=== PATIENT | female | born 1945 | race Caucasian/White ===

== ENCOUNTER 2024-08-25 14:42 | Outpatient (CLI) | payer MEDICARE, SELFPAY ==
--- NOTE | 2024-08-25 16:07 | WPDPFTINT ---
PFT Procedure Performed PFT Procedure Performed Spirometry with Pre/Post Bronchodilator Plethysmography (Lung Vol) Diffusing Cap (DLCO) Flow Vol Loop PFT Interpretation This is a pulmonary function test with pre and post-bronchodilator spirometry, plethysmography and diffusing capacity. The test was performed and results interpreted in accordance with the 2019 and 2005 ATS/ERS Task Force guidelines respectively using the Global Lung Function Initiative-2012 reference equations. Patient demonstrated good effort and cooperation. Reproducibility criteria were met. The quality of the pre bronchodilator spirometry maneuver was Grade A and post bronchodilator spirometry maneuver was Grade A. Findings: Spirometry: There is decreased maximal expiratory airflow at all lung volumes with concave expiratory flow tracing. The contour the inspiratory flow tracing is normal. The pre bronchodilator FVC is 1.70 L, 72% predicted. The pre bronchodilator FEV1 is 1.09 L, 60% predicted. The pre bronchodilator FEV1: FVC ratio 64%. The post bronchodilator FVC is 1.73 L, representing a 2% increase. The post bronchodilator FEV1 is 1.18 L, representing a 9% increase. The post bronchodilator FEV1: FVC ratio is 68%. Plethysmography: The total lung capacity is 6.13 L, 133% predicted. The functional residual capacity is 5.01 L, 190% predicted. The residual volume is 4.17 L, 191% predicted. The residual volume: Total lung capacity ratio is 68%. Diffusing capacity: The diffusing capacity unadjusted for hemoglobin and carboxyhemoglobin is 8.3, 45% predicted. The diffusing capacity adjusted for alveolar volume is 2.71, 63% predicted. Impression: There is a moderate obstructive abnormality. There is no significant improvement after inhaling a single dose of albuterol. The increase in residual volume to total lung volume ratio is consistent with hyperinflation from an obstructive abnormality. The diffusing capacity unadjusted for hemoglobin and carboxyhemoglobin is moderately decreased and remains mildly decreased when adjusted for alveolar volume. There are no prior studies for comparison
== END 2024-08-25 14:43 | disposition home or self-care (01) ==
PROVIDERS: PCP Internal Medicine Pulmonary Disease; Visit Provider Internal Medicine Pulmonary Disease
DX: R94.2 Abnormal results of pulmonary function studies (principal); R05.9 Cough, unspecified; T78.40XA Allergy, unspecified, initial encounter; D89.9 Disorder involving the immune mechanism, unspecified
CPT/HCPCS: 94060; 94726; 94729

== ENCOUNTER 2025-01-15 15:52 | Outpatient (CLI) | payer MEDICARE, SELFPAY ==
--- NOTE | ~2025-01-15 | US_ITS ---
EXAMINATION: US venous doppler [facility] DATE: 01/15/2025 16:50 INDICATION: Right lower extremity swelling TECHNIQUE: Grayscale ultrasound images without and with compression and Doppler ultrasound images of the bilateral lower extremity veins were obtained. COMPARISON: None. FINDINGS: The visualized portions of right common femoral vein, profunda (deep) femoral vein, femoral vein, pop liteal vein, peroneal veins, posterior tibial veins, and greater saphenous vein outflow are patent. The visualized portions of left common femoral vein, profunda femoral vein, femoral vein, popliteal v ein, peroneal veins, posterior tibial veins, and greater saphenous vein outflow are patent. IMPRESSION: 1. No deep venous thrombosis. Reviewed, dictated and finalized at location A.
--- OUTSIDE RECORDS SUMMARY | 2025-01-15 15:56 | XMS_ITS | CONTINUITY OF CARE DOCUMENT ---
Author Name sangeeta rutherford Address Unknown Organization [facility] Address [address] [place] [address] Phone [phone] Care Team Providers Care Language Instructor Name Role Phone Addy Hernandez MD Unavailable FATIMAH VICTORIA MD Unavailable FATIMAH VICTORIA MD Unavailable [phone] PROBLEMS Condition Status Date Provider Notes penitentiary current use of anticoagulants active Pascual Watts RN Cardiology examination active Addy Hernandez MD HTN essential active Addy Hernandez MD Shortness of breath active Addy Hernandez MD Diabetes mellitus active Addy Hernandez MD Hyperlipidemia active Addy Hernandez MD CVA active Addy Hernandez MD CAD active Addy Hernandez MD Tobacco abuse active Addy Hernandez MD Leg weakness, bilateral active Addy Hernandez MD Diminished pedal pulses active Addy Hernandez MD Leg edema, bilateral active Addy Hernandez MD ENCOUNTERS Date Type Provider Location Encounter Diag nosis 1 - 2 In-person encounter Office Visit Addy Hernandez MD [place] [facility] 3 - 3 In-person encounter Office Visit Addy Hernandez MD [place] [facility] 8 - 9 In-person encounter Office Visit Addy Hernandez MD [place] [facility] Cardiology examinationHTN essentialShortness of breathDiabetes mellitusHyperlipidemiaCVACADTobacco abuseLeg weakness, bilateralDiminished pedal pulsesLeg edema, bilateral VITAL SIGNS Date Observation Value Provider Body Mass Index (Ratio) 26.28 kg/m2 Linda Hernandez MD blood pressure, diastolic 85 mm[Hg] Juanito sifuentes [place] blood pressure, systolic 149 mm[Hg] Zakia molina [place] oxygen saturation, oximetry 99 % [facility] [place] pulse rate 97 /min [facility] [place] weight E&M 134.6 [lb_av] [facility] [place] height E&M 60 [in_i] [facility] [place] blood pressure, cuff size regular Juanito maria [place] Body Mass Index (Ratio) 24.21 kg/m2 Linda Hernandez MD blood pressure, cuff size regular Ja rret blood pressure, diastolic 81 mm[Hg] Ja rret blood pressure, systolic 147 mm[Hg] Jar ret pulse rate 91 /min Alfred respiratory rate E&M 16 /min Alfred oxygen saturation, oximetry 94 % Alfred weight E&M 124 [lb_av] Alfred er y height E&M 60 [in_i] Alfred y Body Mass Index (Ratio) 27.34 kg/m2 Linda Hernandez MD blood pressure, diastolic 76 mm[Hg] Emeli nkLogic blood pressure, systolic 126 mm[Hg] Maribell kLogic pulse rate 110 /min Alfred erda y blood pressure, cuff size regular Ja rret blood pressure, diastolic 76 mm[Hg] Ja rret blood pressure, systolic 126 mm[Hg] Kashmir marroquin height E&M 60 [in_i] Alfred y respiratory rate E&M 16 /min Alfred oxygen saturation, oximetry 97 % Alfred weight E&M 140 [lb_av] Alfred y ALLERGIES Allergy Name Onset Date Reaction Criticality Status CODEINE Low Criticality active SULFA Low Criticality active RESULTS Date Observation Value Provider Reference Range Interpretation Location coagulation managed by Pascual Watts RN international normalized ratio (INR) 1.8 Pascual Watts RN Normal prothrombin time (patient) 21.3 s Pascual Watts RN coagulation managed by Pascual Watts RN international normalized ratio (INR) 1.4 Pascual Watts RN Normal prothrombin time (patient) 16.4 s Pascual Watts RN coagulation managed by Pascual Watts RN international normalized ratio (INR) 1.7 Pascual Watts RN Normal prothrombin time (patient) 20.3 s Pascual Watts RN coagulation managed by Pascual Watts RN international normalized ratio (INR) 1.6 Pascual Watts RN Normal prothrombin time (patient) 19.1 s Pascual Watts RN international normalized ratio (INR) 2.6 Aury Ross Normal coagulation managed by Aruy Ross coagulation managed by Pascual Watts RN international normalized ratio (INR) 1.5 Pascual Watts RN Normal prothrombin time (patient) 17.6 s Pascual Watts RN coagulation managed by Pascual Watts RN international normalized ratio (INR) 1.8 Pascual Watts RN Normal prothrombin time (patient) 22.2 s Pascual Mcmillans RN coagulation managed by Pascual Mcmillansusan SCHULZ Pascual Mcmillans RN international normalized ratio (INR) 1.8 Pascual Watts RN Normal prothrombin time (patient) 22.0 s Pascual Watts RN coagulation managed by Pieter Diaz RN international normalized ratio (INR) 2.4 Pieter Diaz RN Normal coagulation managed by Pascual Watts RN Pascual Mcmillans RN international normalized ratio (INR) 1.9 Pascual Watts RN Normal prothrombin time (patient) 22.5 s Pascual Mcmillans RN coagulation managed by Pascual Watts RN Pascual Mcmillans RN international normalized ratio (INR) 1.9 Pascual Mcmillans RN Normal prothrombin time (patient) 22.8 s Pascual Mcmillans RN coagulation managed by Pascual Watts RN Pascual Mcmillans RN international normalized ratio (INR) 2.1 Pascual Mcmillansusan SCHULZ Normal prothrombin time (patient) 25.6 s Pascual Watts RN coagulation managed by Yolande Posada RN international normalized ratio (INR) 1.8 Yolande Posada RN Low prothrombin time (patient) 22.0 s Yolande Posada RN coagulation managed by Yolande Posada RN international normalized ratio (INR) 3.5 Yolande Posada RN Normal international normalized ratio (INR) 4.7 Sadaf Valdovinos Normal coagulation managed by Yolande Posada RN international normalized ratio (INR) 1.7 Yolande Posada RN Normal prothrombin time (patient) 20.8 s Yolande Posada RN coagulation managed by Yolande Posada RN international normalized ratio (INR) 1.5 Yolnade Posada RN Normal prothrombin time (patient) 17.5 s Yolande Posada RN coagulation managed by Pascual Watts RN international normalized ratio (INR) 1.4 Pascual Watts RN Normal prothrombin time (patient) 17.3 s Pascual Watts RN coagulation managed by Pascual Watts RN international normalized ratio (INR) 3.4 Pascual Watts RN Normal prothrombin time (patient) 41.1 s Pascual Watts RN coagulation managed by Pascual Watts RN international normalized ratio (INR) 2.3 Pascual Watts RN Normal prothrombin time (patient) 27.3 s Pascual Watts RN coagulation managed by Pascual Watts RN international normalized ratio (INR) 1.5 Pascual Watts RN Normal prothrombin time (patient) 18.0 s Pascual Watts RN coagulation managed by Pascual Watts RN international normalized ratio (INR) 1.3 Pascual Watts RN Normal prothrombin time (patient) 15.7 s Pascual Watts RN HISTORY OF MEDICATION USE Medication Status Instructions Dates Provider Indications Com ments warfarin 3 mg tablet active Take 1 1/2 tablet by mouth every evening 10/30 Pascual Watts RN metformin 1,000 mg tablet active TAKE 1 TABLET BY MOUTH TWICE DAILY 11/27 Myara Romo hydrochlorothiazide 25 mg tablet active TAKE 2 TABLETS BY MOUTH ONCE DAILY 11/12 Juliocesar Matta famotidine 20 mg tablet active TAKE 1 TABLET BY MOUTH TWICE DAILY 11/12 Juliocesar Matta ipratropium bromide active Fern [place] fenofibrate 150 mg capsule active Take 1 capsule by mouth once a day 06/11 Ana Maria Solorio famotidine 20 mg tablet completed one tab twice daily 06/04 - 11/12 Juliocesar Matta hydrochlorothiazide 25 mg tablet completed 2 tabs once daily 06/04 - 11/12 Juliocesar Matta metformin 1,000 mg tablet completed one tab twice daily 06/04 - 11/27 Mayra Romo valsartan 320 mg tablet active one tablet daily 06/04 Pascual Watts RN warfarin 3 mg tablet completed 1 12 table t by mouth once a day EXCEPT TAKE 1 TABLETS BY MOUTH EVERY EVENING on Sun and ONLY 05/12 - 10/30 Nilda Mistry RN warfarin 3 mg tablet completed Take 1 1/2 tablet by mouth every evening EXCEPT SUN,SUN,and SUN take 2 tablets to = 6mg 03/31 - 05/12 Cari Diaz diltiazem HCl (Cardizem CD) 360 mg capsule,extended release 24hr active Take 1 capsule by mouth once a day 03/05 Ana Maria Solorio Lasix 20 mg tablet active Take 1 tablet by mouth once a day pt is not currently taking 07/18/2402/05 Aury Ross amlodipine 10 mg tablet active diltiazem HCl (Cardizem CD) 360 mg capsule,extended release 24hr completed - 03/05 Ana Maria Solorio Breztri Aerosphere 160-9-4.8 mcg/actuation HFA aerosol inhaler active INHALE 2 PUFFS BY MOUTH TWICE DAILY. RINSE MOUTH AFTER USE albuterol sulfate 90 mcg/actuation HFA aerosol inhaler active INHALE 2 PUFFS BY MOUTH EVERY 4 HOURS NEEDED FOR SHORTNESS OF BREATH warfarin 3 mg tablet completed Take 1 1/2 tablet by mouth every evening - 03/31 Yolande Posada RN valsartan 320 mg tablet completed - 06/04 Pascual Watts RN metformin 1,000 mg tablet completed - 06/04 Pascual Watts RN famotidine 20 mg tablet completed - 06/04 Pascual Watts RN fenofibrate 150 mg capsule completed - 06/11 Ana Maria Solorio hydrochlorothiazide 25 mg tablet completed - 06/04 Pascual Watts RN pravastatin 40 mg tablet active Ruthie Low Dose Aspirin 81 mg tablet,delayed release (DR/EC) active Alfred SOCIAL HISTORY Date Observation Value Provider smoking history, total pack/day 1/2 Addy Hernandez MD cigarette use yes Addy Coy smoking status Current every day smoker Ruperto Hernandez MD smoking history, total pack/day 1/2 Addy Hernnadez MD cigarette use yes Addy Coy smoking status Current every day smoker U arturo Hernandez MD number of grandchildren Addy Hernandez MD U arturo Hernandez MD smoking history, total pack/day 1/2 Alfred kevin cigarette use yes Alfred velásquez smoking status Current every day smoker J sudhakar FUNCTIONAL STATUS Date Observation Value Provider HRA, CV Assess/Plan, Angina (inactive) Management Plan continue current therapy Addy Hernandez MD INSURANCE PROVIDERS Payer name Policy type / Coverage type [place] red republican ID [facility] COMPLETE CARE [id number] (O C-SNP) [employer] insurance [employer] [id number] ADVANCE DIRECTIVES Name Date DISCUSSED - NO DECISION MADE TREATMENT PLAN Date Name Performer Cardiology:Per pcp Addy Hernandez MD Cardiology: H er updated medication list for this problem includes: Lasix 20 Mg Tablet (Furosemide) ..... Take 1 tablet by mouth once a day pt is not currently taking 07/18/24 Hydrochlorothiazide 25 Mg Tablet (Hydrochlorothiazide) ..... 2 tabs once daily Valsartan 320 Mg Tablet (Valsartan) ..... One tablet daily Diltiazem Hcl (cardizem Cd) 360 Mg Capsule,extended Release 24hr (Diltiazem hcl (cardizem cd)) ..... Take 1 capsule by mouth once a day Amlodipine 10 Mg Tablet (Amlodipine) Ruthie Low Dose Aspirin 81 Mg Tablet,delayed Release (dr/ec) (Aspirin) BP today: 149/85 P rior BP: 147/81 (2024) Addy Hernandez MD Cardiology:chronic f or her U sing lasix prn for the swelling Addy Hernandez MD Cardiology: H er updated medication list for this problem includes: Fenofibrate 150 Mg Capsule (Fenofibrate) ..... Take 1 capsule by mouth once a day Pravastatin 40 Mg Tablet (Pravastatin) Addy Hernandez MD Cardiology:The Patie nt was reencouraged to stop smoking. Addy Hernandez MD Cardiology:no new is sues Addy Hernandez MD Cardiology:Continue medical therapy with coumadin, asa, and statin T his visit has been a part of the consistent, comprehensive, and ongoing management of the chronic medical condition(s) listed above for the patient. Her updated medication list for this problem includes: Warfarin 3 Mg Tablet (Warfarin) ..... Take 1 and 1/2 tablets by mouth every evening except on sunday take 2 tablets by mouth Diltiazem Hcl (cardizem Cd) 360 Mg Capsule,extended Release 24hr (Diltiazem hcl (cardizem cd)) ..... Take 1 capsule by mouth once a day Amlodipine 10 Mg Tablet (Amlodipine) Ruthie Low Dose Aspirin 81 Mg Tablet,delayed Release (dr/ec) (Aspirin) Addy Hernandez MD Cardiology Addy Hernandez MD Cardiology: H er updated medication list for this problem includes: Lasix 20 Mg Tablet (Furosemide) ..... Take 1 tablet by mouth once a day Amlodipine 10 Mg Tablet (Amlodipine) Diltiazem Hcl 360 Mg Capsule,extended Release 24hr (Diltiazem hcl) Valsartan 320 Mg Tablet (Valsartan) Hydrochlorothiazide 25 Mg Tablet (Hydrochlorothiazide) Ruthie Low Dose Aspirin 81 Mg Tablet,delayed Release (dr/ec) (Aspirin) BP today: 147/81 P rior BP: 126/76 (12/27/2023) Addy Hernandez MD Cardiology: H er updated medication list for this problem includes: Fenofibrate 150 Mg Capsule (Fenofibrate) Pravastatin 40 Mg Tablet (Pravastatin) Addy Hernandez MD Cardiology:Stable. Continue medi federico therapy. Addy Hernandez MD Cardiology:improved with lasix U arturo Hernandez MD Cardiology: I can't feel her PT or DP pulses bilaterally so we'll check an PEDRO. Addy Hernandez MD Cardiology: w ill check carotid doppler Addy Hernandez MD Cardiology: T he Patient was reencouraged to stop smoking. Addy Hernandez MD Cardiology: B P today: 126/76 Her updated medication list for this problem includes: Amlodipine 10 Mg Tablet (Amlodipine) Diltiazem Hcl 360 Mg Capsule,extended Release 24hr (Diltiazem hcl) Valsartan 320 Mg Tablet (Valsartan) Hydrochlorothiazide 25 Mg Tablet (Hydrochlorothiazide) Ruthie Low Dose Aspirin 81 Mg Tablet,delayed Release (dr/ec) (Aspirin) Addy Hernandez MD Cardiology: H er updated medication list for this problem includes: Fenofibrate 150 Mg Capsule (Fenofibrate) Pravastatin 40 Mg Tablet (Pravastatin) Addy Hernandez MD Cardiology:On statin s W ill request records from her prior oil agent N kelechi Hernandez MD Date Name Venous Doppler Bilat eral LE - Reflux Venous Doppler Bilat eral LE - Reflux Arterial Duplex Bi-L ower EX Carotid Duplex Bilat eral Complete Echo HISTORY OF PROCEDURES Procedure Date Procedure Name Provider Procedure Notes S tatus Makenna Hernandez MD completed Makenna Hernandez MD completed Makenna Quinones MD complete d Makenna Hernandez MD completed Makenna Quinones MD complete d Makenna Quinones MD complete d Protime Addy Hernandez MD completed Geethaime Glenroy Quinones MD complete d Protime Addy Hernandez MD completed Geethaime Glenroy Quinones MD complete d Geethaime Addy Hernandez MD completed Protime Pascual Watts RN completed Protime Addy Hernandez MD completed Protime Yolande Posada RN completed Geethaime Reji López MD completed Protime Glenroy Quinones MD complete d Makenna Quinones MD complete d Makenna Hernandez MD completed Geethaime Pamela Stahl MD comp leted Protime Pascual Watts RN completed Makenna Hernandez MD completed DELVIN Hernandez MD completed
--- OUTSIDE RECORDS SUMMARY | 2025-01-15 15:56 | XMS_ITS | Encounter Summary ---
Author Organization [facility] Address [address] [place] [address] Care Team Providers Care Motor Runner Name Role Phone Katia Duran DO Primary Care Provider Encounter Details Date Type Department Care Team (Late st Contact Info) Description 10/02/[address] 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
--- OUTSIDE RECORDS SUMMARY | 2025-01-15 15:56 | XMS_ITS | Encounter Summary ---
Author Organization [facility] Address 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
--- OUTSIDE RECORDS SUMMARY | 2025-01-15 15:56 | XMS_ITS | Encounter Summary ---
Author Organization [facility] Address 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 Gender Identity Not on file Sexual Orientation Not on file documented as of this encounter Plan of Treatment Not on file documented as of this encounter Procedures Procedure Name Priority Date/Time Associated Diagnosis Comments XR FOOT 3+ VW LEFT Routine 03/09/2009 11 :48 AM CDT XR ANKLE 3+ VW LEFT Routine 03/09/2009 1 1:48 AM CDT documented in this encounter Results * XR FOOT 3+ VW LEFT (03/09/2009 11:48 AM CDT) Anatomical Region Laterality Modality Ankle / Foot Other 03/09/2009 11:4 8 AM CDT Narrative 03/09/2009 11:50 AM CDT [place] [id number], [place] [address] Admit Date: 03/09/2009 FAY PULIDO Sex: F Admit Prov: KAELYN EDWARDS Date: 1945 Primary Care Prov: TORRIE PLUMMER CMRN: [id number] [id number] [facility] Ordering Prov: N/A Accession Number: [id number] Interpretation Left foot 3 views 03/09/2009. History: Pain. Findings: No acute fracture, subluxation, lytic or blastic lesion is visualized. The joint spaces are well-maintained. The soft tissues are unremarkable. Impression: No identifiable bone abnormalities. . Dictated by: ZEYNEP BARNES 03/09/2009 11:31 Electronically signed by: ZEYNEP BARNES 03/09/2009 11:31 Procedure Note Zeynep Lawrence MD - 03/09/[address] [address] Admit Date: 03/09/2009 FAY PULIDO Sex: F Admit Prov: KAELYN EDWARDS Date: 1945 Primary Care Prov: TORRIE PLUMMER CMRN: [id number] [id number] [facility] Ordering Prov: N/A Interpretation Left foot 3 views 03/09/2009. History: Pain. Findings: No acute fracture, subluxation, lytic or blastic lesionis visualized. The joint spaces are well-maintained. The soft tissuesare unremarkable. Impression: No identifiable bone abnormalities. . Dictated by: ZEYNEP BARNES 03/09/2009 11:31 Electronically signed by: ZEYNEP BARNES 03/09/2009 11:31 Kaelyn Edwards MD DIAGNOSTIC IMAGING ORDERABL ES Final Result * XR ANKLE 3+ VW LEFT (03/09/2009 11:48 AM CDT) Anatomical Region Laterality Modality Ankle / Foot Other 03/09/2009 11:4 8 AM CDT Narrative 03/09/2009 3:53 PM CDT [place] [address] [place], [place] [address] Admit Date: 03/09/2009 FAY PULIDO Sex: F Admit Prov: KAELYN EDWARDS Date: 1945 Primary Care Prov: TORRIE PLUMMER CMRN: [id number] [id number] [facility] Ordering Prov: N/A Accession Number: [id number] Interpretation LEFT ANKLE, 3 VIEWS, 03/09/2009 HISTORY: Pain and injury. FINDINGS: No fracture, dislocation, focal bone production or destruction is identified. IMPRESSION: Negative. . Dictated by: LENNOX FOSTER 03/09/2009 12:24 Electronically signed by: LENNOX FOSTER 03/09/2009 15:51 Transcribed: 03/09/2009 12:27 DKT Procedure Note Lennox Foster MD - 03/09/2009 [place] [address] [place], [place] [address] Admit Date: 03/09/2009 FAY PULIDO Sex: F Admit Prov: KAELYN EDWARDS Date: 1945 Primary Care Prov: TORRIE PLUMMER CMRN: [id number] [id number] [facility] Ordering Prov: N/A Interpretation LEFT ANKLE, 3 VIEWS, 03/09/2009 HISTORY: Pain and injury. FINDINGS: No fracture, dislocation, focal bone production ordestruction is identified. IMPRESSION: Negative. . Dictated by: LENNOX FOSTER 03/09/2009 12:24 Electronically signed by: LENNOX FOSTER 03/09/2009 15:51 Transcribed: 03/09/2009 12:27 DKT Kaelyn Edwards MD DIAGNOSTIC IMAGING ORDERABL ES Final Result documented in this encounter Visit Diagnoses Not on filedocumented in this encounter Care Teams Mixer Pigment Relationship Specialty Start Date End Date Katia Duran DO [address] [facility] [address] [place] [address] PCP - General Internal Medicine 01/16/19 04/14/24 documented as of this encounter
--- OUTSIDE RECORDS SUMMARY | 2025-01-15 15:56 | XMS_ITS | Clinical Summary ---
Author Organization [facility] Address [address] [place] [address] Care Team Providers Care Chainman Name Role Phone Payton Rae MD Primary Care Provider Allergies Active Allergy Reactions Criticality Noted Date Comments Codeine Other (See comments) Medium Reaction: sick, , Reaction: Other, , Reaction: Other, Iodinated Contrast Media Syncope High Sulfa (Sulfonamide Antibiotics) Syncope,Other (See comments) Medium Reaction: pass out, , Reaction: Other, , Reaction: Other, Medications nitroglycerin (NITROSTAT) 0.4 mg SL tablet Take as directed prn 0 0 2 Active aspirin 81 mg tablet take 1 tablet by oral route every day 0 0 5 Active metFORMIN (GLUCOPHAGE) 1,000 mg tablet take 1 tablet by oral route 2 times every day with morning and evening meals 0 0 6 Active pravastatin (PRAVACHOL) 40 mg tablet take 1 tablet by oral route every day 0 0 6 Active blood glucose diagnostic (CONTOUR TEST STRIPS) strip Test sugars daily and as directed 100 2 9 Active lancets (COMFORT LANCETS) misc Take as directed 100 1 9 Active ostomy supplies (CONTOUR I STOMA CAP) misc Take as directed. Use Contour glucometer test strips, as directed 100 1 9 Active docusate sodium (COLACE) 100 mg capsule Take one by mouth one time per day 0 0 8 Active potassium chloride ER (KLOR-CON 10) 10 mEq CR tablet Take one by mouth one time per day 30 5 9 Active blood-glucose meter (glucose monitoring kit) kit use with supplies as directed 0 0 0 Active albuterol HFA (PROVENTIL HFA,VENTOLIN HFA,PROAIR HFA) 90 mcg/actuation inhaler Inhale 2 puffs every 6 (six) hours as needed for wheezing Active hydroCHLOROthia zide (HYDRODIURIL) 25 mg tablet TAKE 1 TABLET BY MOUTH DAILY 90 tablet 3 0 Active warfarin (COUMADIN) 3 mg tablet Take 1 tablet (3 mg total) by mouth daily 90 tablet 0 Active valsartan (DIOVAN) 320 mg tablet Take 1 tablet (320 mg total) by mouth daily 3 Active furosemide (LASIX) 20 mg tablet Take 1 tablet (20 mg total) by mouth daily Active famotidine (PEPCID) 20 mg tablet Take 1 tablet (20 mg total) by mouth 2 (two) times a day 3 Active fluticasone propionate (FLONASE) 50 mcg/actuation nasal spray Administer 1 spray into affected nostril(s) daily 5 Active Breztri Aerosphere 160-9-4.8 mcg/actuation inhaler Inhale 2 puffs 2 (two) times a day Active diltiaZEM CD (CARDIZEM CD) 360 mg 24 hr capsule Take 1 capsule (360 mg total) by mouth daily 90 capsule 5 03/02/20 25 Active fenofibrate (FENOGLIDE) 40 mg tablet Take 1 tablet (40 mg total) by mouth daily 30 tablet 5 Active Active Problems Problem Noted Date Diagnosed Date Edema of right lower extremity 12/01/2024 Assessment & Plan (12/01/2024 4:44 PM VISITING NURSE): Endorses RLE edema for ~6 months since a fall w/ leg injury. -PT eval tomorrow -cont home lasix A-fib 12/01/2024 Assessment & Plan (12/01/2024 4:42 PM VISITING NURSE): H/o CAD s/p PCI , HTN/ HLD HM : diltiazem, warfarin ( 3 mg/4.5 mg alternating every other day ), aspirin, fenofibrate, pravastatin, valsartan, hydrochlorothiazide 25 mg daily, Lasix 20 mg daily PLAN - continue diltiazem - Continue warfarin - K 3.5 s/p 40 meq KCL, Mg 1.9 s/p 2g IV Mg - continue Lasix, hydrochlorothiazide, aspirin, fenofibrate, pravastatin, losartan 100 mg daily COPD exacerbation 11/30/2024 Assessment & Plan (12/02/2024 12:53 PM VISITING NURSE): Acute hypoxic respiratory failure sec to COPD exacerbation due to influenza - 5L O2 initially, currently on 2L O2 - Pt presented with progressive, SOB, congestion, productive cough. Requiring 5L NC. Wheezing on exam. RVP +flu A. CXR clear, received dex 10mg, duonebs, azithro, tamiflu in ED, currently on prednisone. Plan -pred 40 daily x4d -azithro x3d -sched Xopenex -cont tamiflu (/- ) -anti-tussives prn, wean O2 as able. Home O2 eval done and on room air. SVT (supraventricular tachycardia) 05/12/2020 Assessment & Plan (12/02/2024 12:53 PM VISITING NURSE): - Pt missed home diltiazem dose yesterday 11/30, this morning while doing DuoNebs she started having tachycardia with heart rate 180, ACT was called, Pt was very anxious, with palpitations, denied chest pain/ shortness of breath, EKG suggestive of SVT s/p vagal maneuver/ carotid massage, adenosine 6 mg followed by 12 mg, received IV diltiazem 15 mg converted back to sinus rhythm with heart rate 100-110, workup suggestive of normal troponin, elevated BNP, BMP/CBC, lactate normal, VBG normal. Plan - Continuous telemetry - keep K >4, Mg>2 - Continue home diltiazem - No further SVTs Paresthesia 10/13/2019 Hyperlipidemia associated with type 2 diabetes reuben kaminskichloe 01/20/2019 Assessment & Plan (08/05/2019 10:59 AM VISITING NURSE): Cholesterol is reasonably controlled on her current medical regimen. Will check her again in the near future and if she continues to be little bit high we may want switch her over to a higher potency statin therapy. Assessment & Plan (01/21/2019 10:52 AM CDT): Continue statin therapy. Lab work in June 2018 revealed LDL of 73. Tobacco use disorder 01/20/2019 Assessment & Plan (08/05/2019 10:59 AM VISITING NURSE): Patient continues to smoke and refuses to try to quit. Once again we discussed this. Assessment & Plan (01/21/2019 10:52 AM CDT): Smoking cessation was discussed and encouraged. The patient currently is not interested in stopping smoking. Pure hypercholesterolemia 07/20/2017 Assessment & Plan (07/25/2018 10:36 AM CDT): Lipid abnormalities are improving with treatment. Pharmacotherapy as ordered. Lipids will be reassessed in 1 year. Benign essential hypertension 08/05/2014 Overview (01/06/2017): Benign essential hypertension Tobacco dependence syndrome 02/14/2014 Overview (01/04/2017): TOBACCO USE DISORDER Atopic rhinitis 02/14/2014 Overview (01/06/2017): ALLERGIC RHINITIS NOS Coronary artery disease of n ative artery of [place] heart with stable angina pectoris 02/14/2014 Overview (01/06/2017): CRNRY ATHRSCL NATVE VSSL Assessment & Plan (08/05/2019 10:59 AM VISITING NURSE): The patient has not had any chest pain or shortness of breath. She is getting around without any issues. She has no specific complaints concerning his coronary artery disease. Blood pressure and heart rate are reasonably controlled. She will follow up with me in 1 year unless she is feeling poorly and comes in to be seen Assessment & Plan (01/21/2019 10:51 AM CDT): Stable on current medical therapy. Unfortunately the patient continues to smoke against medical advice. She will follow up on schedule with Dr. Anand in 6 months. Assessment & Plan (07/25/2018 10:36 AM CDT): The patient has been noncompliant with follow-up however has not had any issues. She has no chest pain is seems to be getting around without any issues. She continues to smoke cigarettes however. We discussed the need for her to quit smoking however it seems like she has given up with the idea of stopping Osteoarthritis of lumbar spine 02/14/2014 Overview (01/06/2017): DJD (Degenerative Joint Disease) of Lumbar Spine Hypertension associated with diabetes 02/14/2014 Overview (01/06/2017): BENIGN HYPERTENSION Assessment & Plan (08/05/2019 10:59 AM VISITING NURSE): Currently reasonably controlled. Continue current medical regimen Assessment & Plan (01/21/2019 10:51 AM CDT): Blood pressure is elevated today in the office and she has had several elevated blood pressure readings. I have added hydrochlorothiazide 12.5 mg p.o. Daily. I asked her to return for a blood pressure check and have a BMP done in 10-14 days. She may do these things at the [facility] location of her primary care provider or will return to us for these. Osteoarthritis 02/14/2014 Overview (01/06/2017): Osteoarthritis Type 2 diabetes mellitus 02/14/2014 Overview (01/06/2017): DMII WO CMP NT ST UNCNTR Assessment & Plan (12/01/2024 12:40 AM VISITING NURSE): Home reg: metformin -accuchecks + SSI Gastroesophageal reflux disease 11/16/2009 Overview (01/06/2017): Esophageal Reflux Diverticular disease of colon 11/16/2009 Overview (01/06/2017): Diverticulosis of colon Resolved Problems Problem Noted Date Diagnosed Date Resolved Date Influenza A 12/01/2024 12/01/2024 Assessment & Plan (12/01/2024 12:10 AM VISITING NURSE): -tamiflu (12/01- ) -tx COPD exac as above -wean O2 as able Stage 3a chronic kidney disease 12/01/2024 12/01/2024 Assessment & Plan (12/01/2024 12:44 AM VISITING NURSE): Cr 1.2 (was ~1.0 in 2023). -trend BMP Hyperlipidemia 02/14/2014 12/01/2024 Overview (01/06/2017): HYPERLIPIDEMIA NEC/NOS Assessment & Plan (12/01/2024 12:45 AM VISITING NURSE): -cont statin Essential hypertension 02/14/201412/01 Overview (01/06/2017): HYPERTENSION NOS Assessment & Plan (12/01/2024 12:39 AM VISITING NURSE): -cont valsartan, dilt, HCTZ Assessment & Plan (07/25/2018 10:36 AM CDT): Hypertension is improving with treatment. Dietary sodium restriction. Continue current medications. Blood pressure will be reassessed at the next regular appointment. Encounters Date Type Department Care Team Description 12/08/2024 SHOP/CHAP Initial Outreach [facility] [address] [place] [address] Maya Benoit, RN 12/05/2024 SHOP/CHAP Initial Outreach [facility] [address] [place] [address] Maya Benoit, RN 12/04/2024 SHOP/CHAP Initial Outreach [facility] [address] [place] [address] Maya Benoit, RN 12/03/2024 SHOP/CHAP Initial Outreach [facility] [address] [place] [address] Maya Benoit RN 12/03/2024 SHOP/CHAP Initial Eligibility Review [facility] [address] [place] [address] Maya Benoit RN 12/01/2024 8:40 AM VISITING NURSE Ancillary Procedure [facility] IP [address] [facility] [address] [place] [address] 11/30/2024 1:34 PM VISITING NURSE - 12/02/2024 2:14 PM VISITING NURSE Hospital Encounter [facility] [address] [place] [address] Prudencio Huang MD Kalvala, MD Janice Richmond Fnu, MD COPD exacerbation (HCC) (Primary Dx); Influenza A Discharge Disposition: Discharge to home or self care from Last 3 Months Immunizations Immunization Administration Dates Next Due Influenza, Split 07/09/2012,08/11/2011, 0 Influenza, Trivalent, IM (MDV) 09/04/2008 Influenza, Trivalent, Preser vative Free, Intramuscular 07/01/2011 Pneumococcal Polysaccharide PPV23 07/01/2011,01/2008 Tdap 12/31/2008 Surgical History Surgery Date Site/Laterality Comments HAND SURGERY 10/01/2007 - 09/30/2008 Joint replacement 1st MCP LAMINECTOMY CORONARY STENT PLACEMENT 10/01/2005 - 09/30/2006 RCA Medical History Medical History Date Comments Arthritis Arthritis Hyperlipidemia Hyperlipidemia Hypertension Hypertension Bronchitis 2007 Bronchitis Depression Depression Adiposity obesity Chronic coronary artery disease 2007 Coronary artery disease Myocardial infarction (HCC) 2006 Myoc ardial infarction; Comments: History of inferior myocardial infarction. Osteoarthritis osteoarthritis Migraine headache Type 2 diabetes mellitus (HCC) Cervical disc disease History of alcohol abuse Diverticulitis Asthma Tubular adenoma of colon Seasonal allergies Paroxysmal atrial fibrillation (HCC) Smoker Stroke (HCC) Family History Medical History Relation Name Comments Ovarian cancer Daughter 3 Cancer -ovari an; Other Daughter 4 ovarian neoplas m; Ovarian cancer Daughter 5 Cancer -ovari an; Other Daughter 6 ovarian neoplas m; Cancer Daughter 7 Cancer -; Diabetes Daughter 8 Diabetes mellit us; Hypertension Daughter 9 Hypertension; Diabetes type II Other 1 Family hist ory of Diabetes -Type II; Hypertension Other 2 Family history of Hypertension; Migraines Other 3 Family history of Migraines; Relation Name Status Comments Daughter 1 Alive Daughter 2 Alive Daughter 3 Daughter 4 Daughter 5 Daughter 6 Daughter 7 Daughter 8 Daughter 9 Other 1 Other 2 Other 3 Social History Tobacco Use Types Packs/Day Years Used Date Smoking Tobacco: Every Day Cigarettes 0.5 40 Smokeless Tobacco: Never Tobacco Cessation:Ready to Q uit: Not Asked; Counseling Given: Not Answered Comments:Patient refuses Alcohol Use Standard Drinks/Week Comments No 0 (1 standard drink = 0.6 oz pur e alcohol) Personal Safety Answer Date Recorded Have you ever been in or are you currently in a harmful physical or emotional relationship or is someone making you feel afraid or unsafe? Denies 12/01/2024 Comments Unknown Sex and Gender Information Value Date Recorded Sex Assigned at Not on file Legal Sex Female 11:46 PM VISITING NURSE Gender Identity Not on file Sexual Orientation Not on file Obstetrics History Last Filed Vital Signs Vital Sign Reading Time Taken Comments Blood Pressure 132/71 12/02/2024 12:58 PM VISITING NURSE Pulse 99 12/02/2024 12:58 PM VISITING NURSE Temperature 37 C (98.6 F) 12/02/2024 12:58 PM VISITING NURSE Respiratory Rate 20 12/02/2024 12:58 PM VISITING NURSE Oxygen Saturation 95% 12/02/2024 12:58 PM VISITING NURSE Inhaled Oxygen Concentration - - Weight 62.7 kg (138 lb 3.2 oz) 11/30/2024 7:00 P M VISITING NURSE Height 154.9 cm (5' 1 ) 11/30/2024 7:00 PM VISITING NURSE Body Mass Index 26.11 11/30/2024 7:00 PM VISITING NURSE Plan of Treatment Health Maintenance Due Date Last Done Comments Albumin Creatinine Ratio, Urine 1947 Depression Screening 1947 Hepatitis C Screening 1945 Dilated Eye Exam 1947 Foot Exam 1947 Hepatitis B Screening 1965 Well Visit 65+ 02/12/2012 Osteoporosis Screening-Bone Density Scan 02/05/2016 02/04/2014, 02/04/2014, 02/04/2014 Hemoglobin A1C 12/04/2023 06/05/2023, 03/0 10/2022, 06/20/2022, Additional history exists Covid-19 Vaccine (5 - 2023-2 5 season) 2025 08/29/2024, 09/11/2021, 02/02/2021, Additional history exists Lipid Panel 11/30/2025 11/30/2024, 10/01, 05/01/2019, Additional history exists eGFR 12/01/2025 12/01/2024, 030 11/2024, 11/30/2024, Additional history exists Fall Risk Assessment 12/02/2025 12/02/2024 DTaP/Tdap/Td Vaccine (5 - Td or Tdap) 10/23/2034 10/23/2024, 11/17/2020, 12/31/2008, Additional history exists Zoster Vaccine Completed 07/25/2019, 05/16/2019 Pneumococcal vaccine 65+ Completed 022, 08/06/2014, 07/01/2011, Additional history exists Breast Cancer Screening-Mammogram Discontinued 07/05/2023, 05/31/2021, 05/31/2021, Additional history exists Influenza Vaccine Completed 08/29/2024, , 06/10/2020, Additional history exists Procedures Procedure Name Priority Date/Time Associated Diagnosis Comments POCT GLUCOSE DEVICE Routine 12/02/2024 1 2:56 PM VISITING NURSE HOME O2 EVAL (DESATURATION SCREEN) Routine 12/02/2024 9:18 AM VISITING NURSE POCT GLUCOSE DEVICE Routine 12/02/2024 8 :19 AM VISITING NURSE POCT GLUCOSE DEVICE Routine 12/02/2024 1 :21 AM VISITING NURSE EGFR Routine 12/01/2024 9:18 PM VISITING NURSE DIFFERENTIAL AUTO Routine 12/01/2024 9:1 8 PM VISITING NURSE MAGNESIUM Routine 12/01/2024 9:18 PM VISITING NURSE PROTIME-INR Routine 12/01/2024 9:18 PM VISITING NURSE CBC WITH AUTO DIFFERENTIAL Routine 12/01/2024 9:18 PM VISITING NURSE BASIC METABOLIC PANEL Routine 12/01/2024 9:18 PM VISITING NURSE POCT GLUCOSE DEVICE Routine 12/01/2024 9 :09 PM VISITING NURSE POCT GLUCOSE DEVICE Routine 12/01/2024 5 :33 PM VISITING NURSE POCT GLUCOSE DEVICE Routine 12/01/2024 1 :01 PM VISITING NURSE US VEIN DUPLEX LOWER EXTREMITY RIGHT LIMITED IP Routine 12/01/2024 1:00 PM VISITING NURSE XR CHEST 1 VIEW ED Urgent/IP Urgent 12/01/2024 12:52 PM VISITING NURSE EGFR STAT 12/01/2024 11:15 AM VISITING NURSE DIFFERENTIAL AUTO STAT 12/01/2024 11: 15 AM VISITING NURSE MAGNESIUM STAT 12/01/2024 11:15 AM VISITING NURSE PRO B-TYPE NATRIURETIC PEPTIDE STAT 12/01/2024 11:15 AM VISITING NURSE TROPONIN I HIGH-SENSITIVITY STAT 12/01/2024 11:15 AM VISITING NURSE LACTATE STAT 12/01/2024 11:15 AM VISITING NURSE BLOOD GAS, VENOUS STAT 12/01/2024 11: 15 AM VISITING NURSE COMPREHENSIVE METABOLIC PANEL STAT 12/01/2024 11:15 AM VISITING NURSE CBC WITH AUTO DIFFERENTIAL STAT 12/01/2024 11:15 AM VISITING NURSE POCT GLUCOSE DEVICE Routine 12/01/2024 7 :55 AM VISITING NURSE POCT GLUCOSE DEVICE Routine 12/01/2024 6 :45 AM VISITING NURSE POCT GLUCOSE DEVICE Routine 12/01/2024 1 2:38 AM VISITING NURSE PROTIME-INR Routine 12/01/2024 12:19 AM VISITING NURSE TROPONIN I HIGH-SENSITIVITY 6-HOUR Timed 12/01/2024 12:19 AM VISITING NURSE POCT GLUCOSE DEVICE Routine 11/30/2024 1 0:27 PM VISITING NURSE POCT GLUCOSE DEVICE Routine 11/30/2024 8 :31 PM VISITING NURSE POCUS CARDIAC 11/30/2024 3:16 PM VISITING NURSE LA CRITICAL CARE ILL/INJURED PATIENT INIT 30-74 MIN Routine 11/30/2024 2:14 PM VISITING NURSE XR CHEST 1 VIEW ED 11/30/2024 1:56 PM VISITING NURSE RESPIRATORY PATHOGEN PANEL STAT 11/30/2024 1:45 PM VISITING NURSE LIPID PANEL STAT 11/30/2024 1:44 PM VISITING NURSE EGFR STAT 11/30/2024 1:44 PM VISITING NURSE DIFFERENTIAL AUTO STAT 11/30/2024 1:4 4 PM VISITING NURSE PRO B-TYPE NATRIURETIC PEPTIDE STAT 11/30/2024 1:44 PM VISITING NURSE TROPONIN I HIGH-SENSITIVITY SERIES (BASELINE, 2HR, 4HR, 6HR) STAT 11/30/2024 1:44 PM VISITING NURSE CBC WITH AUTO DIFFERENTIAL STAT 11/30/2024 1:44 PM VISITING NURSE COMPREHENSIVE METABOLIC PANEL STAT 11/30/2024 1:44 PM VISITING NURSE POCT GLUCOSE DEVICE Routine 11/30/2024 1 :43 PM VISITING NURSE ECG 12-LEAD STAT 11/30/2024 1:37 PM VISITING NURSE HEMOGLOBIN A1C Routine 10/13/2019 2:41 AM VISITING NURSE SCREENING MAMMOGRAM BILATERAL W YOHANNES Schedule Routine, Read Routine (OP Routine) 01/21/2019 9:35 AM CDT Encounter for screening mammogram for malignant neoplasm of breast BONE DENSITY, TRANSMISSION Routine 02/04/2014 9:35 AM CDT from Last 3 Months or Most Recently Relevant to Health Maintenance Results * POCT glucose (12/02/2024 12:56 PM VISITING NURSE) Glucose, POC 199 70 - 199 mg/dL Blood 12/02/2024 12:5 6 PM VISITING NURSE 12/02/2024 12:56 PM VISITING NURSE John Camacho MD LAB POCT ORDERABLES - DEVICE Fin al Result Performing Organization Address [facility] Co de Phone Number [facility] [employer] [place] [address] * POCT glucose (12/02/2024 8:19 AM VISITING NURSE) Glucose, POC 89 70 - 199 mg/dL Blood 12/02/2024 8:19 AM VISITING NURSE 12/02/2024 8:19 AM VISITING NURSE John Camacho MD LAB POCT ORDERABLES - DEVICE Fin al Result Performing Organization Address [facility] Co de Phone Number [facility] [place] [employer] [place] [address] * POCT glucose (12/02/2024 1:21 AM VISITING NURSE) Glucose, POC 91 70 - 199 mg/dL Blood 12/02/2024 1:21 AM VISITING NURSE 12/02/2024 1:21 AM VISITING NURSE us Nitin Crowe MD LAB POCT ORDERABLES - D EVICE Final Result Performing Organization Address [facility] Co de Phone Number [facility] Department [place] [address] * (ABNORMAL) eGFR (12/01/2024 9:18 PM VISITING NURSE) eGFR 47(L) >=60 mL/min/1. 73 m2 Comment: Interpretive Data Reference Interval Normal >/= 90 mL/min/1.73m2 Mildly decreased* 60 - 89 mL/min/1.73m2 Mildly to moderately decreased 45 - 59 mL/min/1.73m2 Moderately to severely decreased 30 - 44 mL/min/1.73m2 Severely decreased 15 - 29 mL/min/1.73m2 Kidney Failure < 15 mL/min/1.73m2 *Relative to young adult level Estimated glomerular filtration rate is determined by the 2020 CKD-EPI equation recommended by the National Kidney Foundation (A Unifying Approach to GFR Estimation: Recommendations of the NKF-ASK Task Force on Reassessing the Inclusion of Race in Diagnosing Kidney Disease, JASN 2020). The CKD-EPI equation should not be used for patients with unstable renal function and has not been validated in children and those over 70. Current interpretive data was last reviewed 2021. Blood 12/01/2024 9:18 PM VISITING NURSE 12/01/2024 10:10 PM VISITING NURSE us Veronica Anderson MD LAB BLOOD ORDERABLES F inal Result Performing Organization Address City/[facility]/ZIP Co de Phone Number [facility] Department [place] [address] * (ABNORMAL) Differential, auto (12/01/2024 9:18 PM VISITING NURSE) Neutrophil abs 8.0(H) 1.5 - 6.5 K/cumm Imm gran abs 0.0 0.0 - 0.1 K/cumm [facility] Lymphocyte abs 0.3(L) 0.8 - 3.3 K/cumm [facility] Monocyte abs 0.5 0.2 - 0.8 K/cumm [facility] Eosinophil abs 0.0 0.0 - 0.5 K/cumm [facility] Basophil abs 0.0 0.0 - 0.1 K/cumm [facility] Neutrophil pct 90.5 % [facility] Comment: Interpretive Data Percent cell count reference ranges are not reported, since discordance with absolute values may lead to misinterpretation of CBC data. Current Interpretive Data was last revised on 2018. Imm gran pct 0.5 % [facility] Comment: Interpretive Data Percent cell count reference ranges are not reported, since discordance with absolute values may lead to misinterpretation of CBC data. Current Interpretive Data was last revised on 2018. Lymphocyte pct 3.2 % [facility] Comment: Interpretive Data Percent cell count reference ranges are not reported, since discordance with absolute values may lead to misinterpretation of CBC data. Current Interpretive Data was last revised on 2018. Monocyte pct 5.7 % [facility] Comment: Interpretive Data Percent cell count reference ranges are not reported, since discordance with absolute values may lead to misinterpretation of CBC data. Current Interpretive Data was last revised on 2018. Eosinophil pct 0.0 % [facility] Comment: Interpretive Data Percent cell count reference ranges are not reported, since discordance with absolute values may lead to misinterpretation of CBC data. Current Interpretive Data was last revised on 2018. Basophil pct 0.1 % [facility] Comment: Interpretive Data Percent cell count reference ranges are not reported, since discordance with absolute values may lead to misinterpretation of CBC data. Current Interpretive Data was last revised on 2018. Blood 12/01/2024 9:18 PM VISITING NURSE 12/01/2024 10:09 PM VISITING NURSE us Veronica Anderson MD LAB BLOOD ORDERABLES F inal Result [facility] Department [place] [address] * (ABNORMAL) CBC with auto differential (12/01/2024 9:18 PM VISITING NURSE) [facility] WBC 8.8 3.8 - 9.9 K/cumm Hgb 10.2(L) 11.9 - 15.5 g/dL [facility] Hct 30.3(L) 35.6 - 45.5 % [facility] Plt 452(H) 150 - 400 K/cumm [facility] MPV 9.6 9.1 - 12.[address] [facility] RBC 3.75(L) 3.90 - 5.20 M/cumm [facility] MCV 80.8(L) 81.3 - 96.[address] [facility] MCH 27.2 27.1 - 33.[address] [facility] MCHC 33.7 32.3 - 35.7 g/dL [facility] RDW CV 15.4(H) 11.1 - 14.9 % [facility] RDW SD 45.1 35.7 - 48.[address] [facility] NRBC abs 0.00 0.00 - 0.01 K/cumm [facility] Blood 12/01/2024 9:18 PM VISITING NURSE 12/01/2024 10:09 PM VISITING NURSE us Veronica Anderson MD LAB BLOOD ORDERABLES F inal Result Performing Organization Address City/State/[facility] Co de Phone Number [facility] Department [place] [address] * (ABNORMAL) Protime-INR (12/01/2024 9:18 PM VISITING NURSE) [facility] PT 23.5(H) 9.7 - 13.0 sec INR 2.14(H) 0.90 - 1.[address] [facility] Comment: Interpretive data Oral anticoagulant therapeutic ranges: Venous thromboembolism prophylaxis or treatment: 2.0-3.0 CARDIOLOGY Standard range: 2.0-3.0 High-intensity range: 2.5-3.5 Refer to indication-specific guidelines for appropriate target ranges for prosthetic heart valve replacement. Current interpretive data was last revised on 2019. Blood 12/01/2024 9:18 PM VISITING NURSE 12/01/2024 9:57 PM VISITING NURSE Veronica Anderson MD LAB BLOOD ORDERABLES F inal Result Performing Organization Address [facility]/ZIP Co de Phone Number [facility] Department [place] [address] * (ABNORMAL) Magnesium (12/01/2024 9:18 PM VISITING NURSE) Pathologist [facility] Magnesium 2.8(H) 1.4 - 2.5 mg/dL Blood 12/01/2024 9:18 PM VISITING NURSE 12/01/2024 10:10 PM VISITING NURSE John Camacho MD LAB BLOOD ORDERABLES Final Resul t Performing Organization Address [facility] Co de Phone Number [facility] [place] [address] * (ABNORMAL) Basic metabolic panel (12/01/2024 9:18 PM VISITING NURSE) Pathologist [facility] Sodium 137 135 - 145 mmol/L Potassium, pl 3.9 3.3 - 4.9 mmol/L [facility] Chloride 100 97 - 110 mmol/L [facility] CO2 29 22 - 32 mmol/L [facility] Anion gap 8 2 - 15 mmol/L [facility] BUN 23 6 - 25 mg/dL [facility] Creatinine 1.19(H) 0.60 - 1.10 mg/dL [facility] Glucose 234(H) 70 - 199 mg/dL [facility] Comment: Interpretive Data Fasting glucose >/= 126 mg/dl is diagnostic for diabetes. Fasting is defined as no caloric intake for at least 8 hours. Fasting glucose between 100 mg/dl to 125 mg/dl is diagnostic of prediabetes. In a patient with classic symptoms of hyperglycemia or hyperglycemic crisis, a random glucose >/= 200 mg/dl is diagnostic for diabetes. In the absence of unequivocal hyperglycemia, results should be confirmed by repeat testing. The classification and Diagnosis of Diabetes Diabetes Care 2021; 46: S19-S40. Current interpretive data was last revised 2022. Calcium 9.2 8.5 - 10.3 mg/dL [facility] Blood 12/01/2024 9:18 PM VISITING NURSE 12/01/2024 10:10 PM VISITING NURSE us Veronica Anderson MD LAB BLOOD ORDERABLES F inal Result Performing Organization Address City/[facility] Co de Phone Number [facility] [employer] [place] [address] * (ABNORMAL) POCT glucose (12/01/2024 9:09 PM VISITING NURSE) Glucose, POC 254(H) 70 - 199 mg/dL Blood 12/01/2024 9:09 PM VISITING NURSE 12/01/2024 9:09 PM VISITING NURSE us Nitin Crowe MD LAB POCT ORDERABLES - D EVICE Final Result Performing Organization Address [facility] Co de Phone Number [facility] Department of [employer] [place] [address] * (ABNORMAL) POCT glucose (12/01/2024 5:33 PM VISITING NURSE) Glucose, POC 228(H) 70 - 199 mg/dL Blood 12/01/2024 5:33 PM VISITING NURSE 12/01/2024 5:33 PM VISITING NURSE Nitin Crowe MD LAB POCT ORDERABLES - D EVICE Final Result Performing Organization Address City/[facility] Co de Phone Number [facility] [employer] [place] [address] * (ABNORMAL) POCT glucose (12/01/2024 1:01 PM VISITING NURSE) Glucose, POC 234(H) 70 - 199 mg/dL Blood 12/01/2024 1:01 PM VISITING NURSE 12/01/2024 1:01 PM VISITING NURSE Nitin Crowe MD LAB POCT ORDERABLES - D EVICE Final Result Performing Organization Address City/State/[facility] Co de Phone Number [facility] Department of Laboratories [place] [phone] * US VEIN DUPLEX LOWER EXTREMITY RIGHT LIMITED, UNILATERAL (12/01/2024 1:00 PM VISITING NURSE) Anatomical Region Laterality Modality Vascular Right Ultrasound 12/01/2024 11:5 6 AM VISITING NURSE Narrative 12/01/2024 2:20 PM VISITING NURSE [facility] - Department of Vascular Surgery, Vascular Laboratory [address] [place] [id number] Lower Extremity Venous Ultrasound Report Patient Name: FAY HOLGUIN M : 1945 (79y 9m) Study Date: 12/01/2024 11:56:15 AM Gender: F Tech: Location: [id number] Ref Provider: VERONICA ANDERSON Quality: Adequate Order Provider: VERONICA ANDERSON PROCEDURES: Vascular Report: Venous Duplex imaging was performed in the right lower extremity. The common femoral, femoral, popliteal, posterior tibial, peroneal veins were evaluated for patency, spontaneity and phasicity with Doppler, compression and augmentation maneuvers. Great saphenous vein proximal at the junction was evaluated with compression maneuvers. INDICATIONS: Swelling, Lower Extremity, Right - FINDINGS: Performing Brass Pourer: Shayna Grace RVT. Right: Venous Doppler signals in the right lower extremity are within normal limits for spontaneity and phasicity and respond normally to augmentation maneuvers. No evidence of deep vein thrombus by duplex, proximal to the calf. Comments: Contralateral common femoral vein is imaged for comparison and is patent. Unilateral (limited study) performed per M.D. order. CONCLUSIONS: 1. There is no evidence of acute deep vein thrombosis on the right. Noninvasive venous studies cannot rule out isolated calf vein obstruction. HISTORY: GERD, HLD, HTN, CAD, T2DM, a-fib, right lower extremity swelling. PREVIOUS STUDIES: No previous studies for comparison. DISCLAIMER: The study images and the final report will be retained in the patient chart by the Vascular Laboratory for the legally required time period. This chart constitutes the legal record of any testing performed. ATTESTATION: I have reviewed and interpreted the pertinent images and measurements of this study. I attest to the conclusions in the final report that is provided above. Electronically Signed By: Prudencio Ferrer MD [facility] [phone] 12/01/2024 1:04:52 PM VISITING NURSE Procedure Note Prudencio Ferrer MD - 12/01/2024 [facility] - Department of Vascular Surgery,Vascular Laboratory [address] [place] [address] Lower Extremity Venous Ultrasound Report Patient Name: FAY HOLGUIN M : 1945 (79y 9m) Study Date: 12/01/2024 11:56:15 AM Gender: F Tech: Location: [id number] Ref Provider: VERONICA ANDERSON Quality: Adequate Order Provider: VERONICA ANDERSON PROCEDURES: Vascular Report: Venous Duplex imaging was performed in the right lower extremity. Thecommon femoral, femoral, popliteal, posterior tibial, peroneal veins were evaluated forpatency, spontaneity and phasicity with Doppler, compression and augmentationmaneuvers. Great saphenous vein proximal at the junction was evaluated with compressionmaneuvers. INDICATIONS: Swelling, Lower Extremity, Right - FINDINGS: Performing Brass Pourer: Shayna Grace RVT. Right: Venous Doppler signals in the right lower extremity are within normallimits for spontaneity and phasicity and respond normally to augmentation maneuvers.No evidence of deep vein thrombus by duplex, proximal to the calf. Comments: Contralateral common femoral vein is imaged for comparison and is patent.Unilateral (limited study) performed per M.D. order. CONCLUSIONS: 1. There is no evidence of acute deep vein thrombosis on the right.Noninvasive venous studies cannot rule out isolated calf vein obstruction. HISTORY: GERD, HLD, HTN, CAD, T2DM, a-fib, right lower extremity swelling. PREVIOUS STUDIES: No previous studies for comparison. DISCLAIMER: The study images and the final report will be retained in the patientchart by the Vascular Laboratory for the legally required time period. This chartconstitutes the legal record of any testing performed. ATTESTATION: I have reviewed and interpreted the pertinent images and measurements ofthis study. I attest to the conclusions in the final report that is provided above. Electronically Signed By: Prudencio Ferrer MD [facility] [phone] 12/01/2024 1:04:52 PM VISITING NURSE Veronica Anderson MD IMG US PROCEDURES Maye l Result * XR Chest 1 View (12/01/2024 12:52 PM VISITING NURSE) Anatomical Region Laterality Modality Body, Chest N/A Computed Radiogr aphy 12/01/2024 1:46 PM VISITING NURSE Impressions 12/01/2024 2:25 PM VISITING NURSE Mild left basilar atelectasis. No consolidation. No effusion. There is no pneumothorax. Unchanged cardiomediastinal silhouette. Dictated by: Anahy Eaton MD The radiology attending physician has personally reviewed this study, and had reviewed and/or edited this written report and agrees with it. Electronically signed by: Alba Nava M.D. Narrative 12/01/2024 2:25 PM VISITING NURSE EXAMINATION: XR CHEST 1 VIEW HISTORY: Shortness of breath COMPARISON:11/30/2024 Procedure Note Alba Nava MD - 12/01/2024 EXAMINATION: XR CHEST 1 VIEW HISTORY: Shortness of breath COMPARISON:11/30/2024 IMPRESSION: Mild left basilar atelectasis. No consolidation. No effusion. There is no pneumothorax. Unchanged cardiomediastinal silhouette. Dictated by: Anahy Eaton MD The radiology attending physician has personally reviewed this study, and had reviewed and/or edited this written report and agrees with it. Electronically signed by: Alba Nava M.D. Nitin Crowe MD IMG XR PROCEDURES Final Result * Troponin I high-sensitivity (12/01/2024 11:15 AM VISITING NURSE) Trop I hs 14 <=17 ng/L Comment: Interpretive Data For further hscTnI resources including the diagnostic algorithm and an aid in interpretation, copy and paste this link: https://bjhlab.testcatalog.org/show/hsTrop-1 Current Interpretive Data last revised 2020. Blood 12/01/2024 11:1 5 AM VISITING NURSE 12/01/2024 11:44 AM VISITING NURSE Nitin Crowe MD LAB BLOOD ORDERABLES Fi nal Result Performing Organization Address City/[facility] Co de Phone Number [facility] [place] [employer] [place] [address] * Lactate (12/01/2024 11:15 AM VISITING NURSE) Lactate 1.2 0.7 - 2.0 mmol/L Blood 12/01/2024 11:1 5 AM VISITING NURSE 12/01/2024 11:44 AM VISITING NURSE Nitin Crowe MD LAB BLOOD ORDERABLES Fi nal Result Performing Organization Address [facility] Co de Phone Number [facility] [place] [employer] [place] [address] * (ABNORMAL) eGFR (12/01/2024 11:15 AM VISITING NURSE) eGFR 51(L) >=60 mL/min/1. 73 m2 Comment: Interpretive Data Reference Interval Normal >/= 90 mL/min/1.73m2 Mildly decreased* 60 - 89 mL/min/1.73m2 Mildly to moderately decreased 45 - 59 mL/min/1.73m2 Moderately to severely decreased 30 - 44 mL/min/1.73m2 Severely decreased 15 - 29 mL/min/1.73m2 Kidney Failure < 15 mL/min/1.73m2 *Relative to young adult level Estimated glomerular filtration rate is determined by the 2020 CKD-EPI equation recommended by the National Kidney Foundation (A Unifying Approach to GFR Estimation: Recommendations of the NKF-ASK Task Force on Reassessing the Inclusion of Race in Diagnosing Kidney Disease, JASN 2020). The CKD-EPI equation should not be used for patients with unstable renal function and has not been validated in children and those over 70. Current interpretive data was last reviewed 2021. Blood 12/01/2024 11:1 5 AM VISITING NURSE 12/01/2024 11:44 AM VISITING NURSE Nitin Crowe MD LAB BLOOD ORDERABLES Fi nal Result [facility] Department [place] [address] * (ABNORMAL) Differential, auto (12/01/2024 11:15 AM VISITING NURSE) Neutrophil abs 9.7(H) 1.5 - 6.5 K/cumm Imm gran abs 0.0 0.0 - 0.1 K/cumm [facility] Lymphocyte abs 0.3(L) 0.8 - 3.3 K/cumm [facility] Monocyte abs 0.4 0.2 - 0.8 K/cumm [facility] Eosinophil abs 0.0 0.0 - 0.5 K/cumm [facility] Basophil abs 0.0 0.0 - 0.1 K/cumm [facility] Neutrophil pct 92.8 % [facility] Comment: Interpretive Data Percent cell count reference ranges are not reported, since discordance with absolute values may lead to misinterpretation of CBC data. Current Interpretive Data was last revised on 2018. Imm gran pct 0.4 % [facility] Comment: Interpretive Data Percent cell count reference ranges are not reported, since discordance with absolute values may lead to misinterpretation of CBC data. Current Interpretive Data was last revised on 2018. Lymphocyte pct 2.9 % [facility] Comment: Interpretive Data Percent cell count reference ranges are not reported, since discordance with absolute values may lead to misinterpretation of CBC data. Current Interpretive Data was last revised on 2018. Monocyte pct 3.7 % [facility] Comment: Interpretive Data Percent cell count reference ranges are not reported, since discordance with absolute values may lead to misinterpretation of CBC data. Current Interpretive Data was last revised on 2018. Eosinophil pct 0.0 % [facility] Comment: Interpretive Data Percent cell count reference ranges are not reported, since discordance with absolute values may lead to misinterpretation of CBC data. Current Interpretive Data was last revised on 2018. Basophil pct 0.2 % [facility] Comment: Interpretive Data Percent cell count reference ranges are not reported, since discordance with absolute values may lead to misinterpretation of CBC data. Current Interpretive Data was last revised on 2018. Blood 12/01/2024 11:1 5 AM VISITING NURSE 12/01/2024 11:44 AM VISITING NURSE us Nitin Crowe MD LAB BLOOD ORDERABLES Fi nal Result [facility] Department [place] [address] * (ABNORMAL) Pro B-type natriuretic peptide (12/01/2024 11:15 AM VISITING NURSE) NT-proBNP 1,970(H) <=450 pg/mL Comment: Interpretive Comments: A. Dyspnea in Acute Care Setting All Ages: < 300 pg/ml, acute heart failure unlikely. < 50 yrs: 300 - 450 pg/ml, further investigation warranted. > 450 pg/ml, acute heart failure likely. 50 - 74 yrs: 300 - 900 pg/ml, further investigation warranted. > 900 pg/ml, acute heart failure likely . > or = 75 yrs: 450 - 1800 pg/ml, further investigation warranted. > 1800 pg/ml, acute heart failure likely. B. Non-acute Setting < 75 yrs < 125 pg/ml, rules out heart failure. > or = 125 pg/ml, further investigation warranted. > or = 75 yrs < 450 pg/ml, rules out heart failure. > or = 450 pg/ml, further investigation warranted. - Knowledge of each individual patient's NT-proBNP range may be more useful than using similar cut-points for every patient. Please note that marked elevations in NT-proBNP levels may be observed in state other than Left Ventricular Congestive Failure, including: acute coronary syndromes, right heart strain/failure (including pulmonary embolism and cor pulmonale), critical illness, renal failure, as well as advanced age. - References: 1. Wood IZAGUIRRE et.al. Eur Heart J. 2006:27:330-337. 2. Jamila RW, Julian AM. J. AM Tegan Cardiol: Cardiovasc Imag. 2009;2: 216- 225. Interpretive Data Last Revised Date: 2018. Blood 12/01/2024 11:1 5 AM VISITING NURSE 12/01/2024 11:44 AM VISITING NURSE Nitin Crowe MD LAB BLOOD ORDERABLES Fi nal Result Performing Organization Address City/[facility] Co de Phone Number [facility] Department [place] [address] * (ABNORMAL) CBC with auto differential (12/01/2024 11:15 AM VISITING NURSE) Pathologist [facility] WBC 10.4(H) 3.8 - 9.9 K/cumm Hgb 10.6(L) 11.9 - 15.5 g/dL [facility] Hct 31.8(L) 35.6 - 45.5 % [facility] Plt 415(H) 150 - 400 K/cumm [facility] MPV 9.5 9.1 - 12.[address] [facility] RBC 3.87(L) 3.90 - 5.20 M/cumm [facility] MCV 82.2 81.3 - 96.[address] [facility] MCH 27.4 27.1 - 33.[address] [facility] MCHC 33.3 32.3 - 35.7 g/dL [facility] RDW CV 15.5(H) 11.1 - 14.9 % [facility] RDW SD 46.3 35.7 - 48.[address] [facility] NRBC abs 0.00 0.00 - 0.01 K/cumm [facility] Blood 12/01/2024 11:1 5 AM VISITING NURSE 12/01/2024 11:44 AM VISITING NURSE Nitin Crowe MD LAB BLOOD ORDERABLES Fi nal Result [facility] [employer] [place] [address] * Magnesium (12/01/2024 11:15 AM VISITING NURSE) Pathologist [facility] Magnesium 1.9 1.4 - 2.5 mg/dL Blood 12/01/2024 11:1 5 AM VISITING NURSE 12/01/2024 11:44 AM VISITING NURSE Nitin Crowe MD LAB BLOOD ORDERABLES Fi nal Result Performing Organization Address [facility] Co de Phone Number [facility] [employer] [place] [address] * Blood gas, venous (12/01/2024 11:15 AM VISITING NURSE) Pathologist [facility] pH, Venous 7.40 7.32 - 7.43 PCO2, Venous 40 40 - [address] [facility] PO2, Venous [address] [facility] Comment: Interpretive Data No Reference Range Established Current Interpretive Data was last revised on 2018. HCO3 Venous, Calculated 25 20 - 30 mmol/L [facility] BE, venous 0 mmol/L [facility] Comment: Interpretive Data No Reference Range Established Current Interpretive Data was last revised on 2018. Blood 12/01/2024 11:1 5 AM VISITING NURSE 12/01/2024 11:38 AM VISITING NURSE Nitin Crowe MD LAB BLOOD ORDERABLES Fi nal Result Performing Organization Address [facility] Co de Phone Number [facility] [employer] [place] [address] * (ABNORMAL) Comprehensive metabolic panel (12/01/2024 11:15 AM VISITING NURSE) Pathologist [facility] Sodium 141 135 - 145 mmol/L Potassium, pl 3.5 3.3 - 4.9 mmol/L [facility] Chloride 102 97 - 110 mmol/L [facility] CO2 26 22 - 32 mmol/L [facility] Anion gap 13 2 - 15 mmol/L [facility] BUN 19 6 - 25 mg/dL [facility] Creatinine 1.12(H) 0.60 - 1.10 mg/dL [facility] Glucose 201(H) 70 - 199 mg/dL [facility] Comment: Interpretive Data Fasting glucose >/= 126 mg/dl is diagnostic for diabetes. Fasting is defined as no caloric intake for at least 8 hours. Fasting glucose between 100 mg/dl to 125 mg/dl is diagnostic of prediabetes. In a patient with classic symptoms of hyperglycemia or hyperglycemic crisis, a random glucose >/= 200 mg/dl is diagnostic for diabetes. In the absence of unequivocal hyperglycemia, results should be confirmed by repeat testing. The classification and Diagnosis of Diabetes Diabetes Care 2021; 46: S19-S40. Current interpretive data was last revised 2022. Calcium 9.5 8.5 - 10.3 mg/dL [facility] Bilirubin, total 0.2 0.1 - 1.2 mg/dL [facility] Protein, pl 6.9 6.5 - 8.5 g/dL [facility] Albumin 3.9 3.5 - 5.0 g/dL [facility] Alk phos 58 40 - 130 Units/L [facility] ALT 25 7 - 45 Units/L [facility] AST 38 10 - 45 Units/L [facility] Blood 12/01/2024 11:1 5 AM VISITING NURSE 12/01/2024 11:44 AM VISITING NURSE Nitin Crowe MD LAB BLOOD ORDERABLES Fi nal Result [facility] Department [place] [address] * POCT glucose (12/01/2024 7:55 AM VISITING NURSE) [facility] Glucose, POC 150 70 - 199 mg/dL Blood 12/01/2024 7:55 AM VISITING NURSE 12/01/2024 7:55 AM VISITING NURSE Nitin Crowe MD LAB POCT ORDERABLES - D EVICE Final Result Performing Organization Address [facility] Co de Phone Number [facility] [place] [address] * POCT glucose (12/01/2024 6:45 AM VISITING NURSE) Glucose, POC 127 70 - 199 mg/dL Blood 12/01/2024 6:45 AM VISITING NURSE 12/01/2024 6:45 AM VISITING NURSE Nitin Crowe MD LAB POCT ORDERABLES - D EVICE Final Result Performing Organization Address [facility] Co de Phone Number [facility] [place] [address] * (ABNORMAL) POCT glucose (12/01/2024 12:38 AM VISITING NURSE) Glucose, POC 216(H) 70 - 199 mg/dL Blood 12/01/2024 12:3 8 AM VISITING NURSE 12/01/2024 12:38 AM VISITING NURSE Nitin Crowe MD LAB POCT ORDERABLES - D EVICE Final Result Performing Organization Address [facility] Co de Phone Number [facility] [place] [address] * Troponin I high-sensitivity 6-hour (12/01/2024 12:19 AM VISITING NURSE) Trop I hs 10 <=17 ng/L Comment: Interpretive Data For further hscTnI resources including the diagnostic algorithm and an aid in interpretation, copy and paste this link: https://bjhlab.testcatalog.org/show/hsTrop-1 Current Interpretive Data last revised 2020. Trop I hs delta See Comment ng/L [facility] Comment:Inappropriate collec tion time to report a delta. Trop I hs pct delta See Comment % [facility] Comment:Inappropriate collec tion time to report a delta. Trop I hs interp See Comment [facility] Comment:Inappropriate collec tion time to report a delta. Blood 12/01/2024 12:1 9 AM VISITING NURSE 12/01/2024 12:49 AM VISITING NURSE Prudencio Huang MD LAB BLOOD ORDERABLES Final Result Performing Organization Address [facility] de Phone Number [facility] Department [place] [address] * (ABNORMAL) Protime-INR (12/01/2024 12:19 AM VISITING NURSE) PT 26.7(H) 9.7 - 13.0 sec INR 2.43(H) 0.90 - 1.[address] [facility] Comment: Interpretive data Oral anticoagulant therapeutic ranges: Venous thromboembolism prophylaxis or treatment: 2.0-3.0 CARDIOLOGY Standard range: 2.0-3.0 High-intensity range: 2.5-3.5 Refer to indication-specific guidelines for appropriate target ranges for prosthetic heart valve replacement. Current interpretive data was last revised on 2019. Blood 12/01/2024 12:1 9 AM VISITING NURSE 12/01/2024 12:48 AM VISITING NURSE Veronica Anderson MD LAB BLOOD ORDERABLES F inal Result Performing Organization Address [facility] de Phone Number [facility] Department [place] [address] * (ABNORMAL) POCT glucose (11/30/2024 10:27 PM VISITING NURSE) Glucose, POC 301(H) 70 - 199 mg/dL Blood 11/30/2024 10:2 7 PM VISITING NURSE 11/30/2024 10:27 PM VISITING NURSE Nitin Crowe MD LAB POCT ORDERABLES - D EVICE Final Result [facility] Department [place] [address] * (ABNORMAL) POCT glucose (11/30/2024 8:31 PM VISITING NURSE) Glucose, POC 429(H) 70 - 199 mg/dL Blood 11/30/2024 8:31 PM VISITING NURSE 11/30/2024 8:31 PM VISITING NURSE Nitin Alen Crowe MD LAB POCT ORDERABLES - D EVICE Final Result Performing Organization Address [facility] Co de Phone Number SELVIN RAMIRES [facility] Department [place] [address] * POCUS Cardiac (11/30/2024 3:16 PM VISITING NURSE) Anatomical Region Laterality Modality Other 11/30/2024 3:08 PM VISITING NURSE Narrative 12/04/2024 2:03 AM VISITING NURSE Performed by: Gisela Altman Cardiac: Exam type: Diagnostic Exam Information: Indication(s) for Exam: Dyspnea Exam Occurence: Initial Findings : Pericardial effusion: Absent Left ventricle: Normal EF Right ventricle: Normal IVC: Normal Interpretation: Normal LVEF Electronically signed by Gisela Altman on Monday, December 02, 2024 at 7:36 PM I have reviewed the images & the resident's interpretation. I agree with the findings. Electronically signed by Prudencio Huang on November at 2:03 AM I have reviewed the images & the resident's interpretation. I agree with the findings. Procedure Note Prudencio Huang MD - 12/04/2024 Performed by: Gisela Altman Cardiac: Exam type: Diagnostic Exam Information: Indication(s) for Exam: Dyspnea Exam Occurence: Initial Findings : Pericardial effusion: Absent Left ventricle: Normal EF Right ventricle: Normal IVC: Normal Interpretation: Normal LVEF Electronically signed by Gisela Altman on Monday, December 02, 2024 at7:36 PM I have reviewed the images & the resident's interpretation. I agree withthe findings. Electronically signed by Prudencio Huang on November at 2:03AM I have reviewed the images & the resident's interpretation. I agree withthe findings. us Prudencio Huang MD POCUS ORDERABLES Final Res ult * LA CRITICAL CARE ILL/INJURED PATIENT INIT 30-74 MIN (11/30/2024 2:14 PM VISITING NURSE) Narrative Prudencio Huang MD - 11/30/2024 2:14 PM VISITING NURSE Prudencio Huang MD 12/10/2024 12:47 AM Critical Care Performed by: Prudencio Huang MD Authorized by: Prudencio Huang MD Critical care provider statement: As reflected in the history, physical exam, orders, notes, and/or MDM, I was personally present while the patient was critically ill and provided critical care services for 35 minutes, excluding time involved in separately billable procedures. Critical care was necessary to treat or prevent imminent or life-threatening deterioration of the following condition(s): hypoxic respiratory failure, acute undifferentiated respiratory failure and COPD with acute exacerbation pneumonia Critical care was time spent by me providing the following: continuous telemetry, continuous pulse oximetry, continuous capnography, interpretation of bedside monitors, imaging, and arterial/venous lab draws and serial bedside patient exams supplemental oxygen, frequent bronchodilator treatments, incentive spirometry, pulmonary toilet, acute airway management, non-invasive positive pressure ventilator management and invasive ventilator management, reassessment, and titration initiation of steroids empiric broad coverage antibiotics I provided emergent necessary critical care medicine services to this patient. I ordered and reviewed test results and/or imaging studies. I spent time discussing the management of this critically ill patient with consultants and the medical staff. I spent time discussing the management and therapeutic options for this critically ill patient with the patient themselves or with the appropriate designated surrogate decision-maker. I spent time documenting in the medical record. us Prudencio Huang MD IN CLINIC/BEDSIDE ORDERABL ES Final Result * XR Chest 1 Vw Portable (11/30/2024 1:56 PM VISITING NURSE) Anatomical Region Laterality Modality Body, Chest N/A Computed Radiogr aphy 11/30/2024 1:58 PM VISITING NURSE Impressions 11/30/2024 8:14 PM VISITING NURSE Comparison is made to chest radiograph 11/05/2023. No pulmonary consolidation. Possible trace left pleural effusion. No right pleural effusion. No pneumothorax. The cardiomediastinal silhouette is normal. Dictated by: Bayron Escobedo MD The radiology attending physician has personally reviewed this study, and had reviewed and/or edited this written report and agrees with it. Electronically signed by: Car Medel M.D. Narrative 11/30/2024 8:14 PM VISITING NURSE EXAMINATION: 1 view chest radiograph Procedure Note Car Medel MD - 11/30/2024 EXAMINATION: 1 view chest radiograph IMPRESSION: Comparison is made to chest radiograph 11/05/2023. No pulmonary consolidation. Possible trace left pleural effusion. No right pleural effusion. No pneumothorax. The cardiomediastinal silhouette is normal. Dictated by: Bayron Escobedo MD The radiology attending physician has personally reviewed this study, and had reviewed and/or edited this written report and agrees with it. Electronically signed by: Car Medel M.D. Prudencio Huang MD IMG XR PROCEDURES Final Re sult * (ABNORMAL) Respiratory pathogen panel Nasopharyngeal (11/30/2024 1:45 PM VISITING NURSE) Pathologist [facility] Influenza A/2009 RNA Detected(A) Not Detected Influenza B RNA Not Detected Not Detected [facility] RSV RNA Not Detected Not Detected [facility] COVID-19 RNA Not Detected Not Detected [facility] Coronavirus 229E RNA Not Detected Not Detected [facility] Coronavirus HKU1 RNA Not Detected Not Detected [facility] Coronavirus NL63 RNA Not Detected Not Detected [facility] Coronavirus OC43 RNA Not Detected Not Detected [facility] Adenovirus DNA Not Detected Not Detected [facility] Metapneumovirus RNA Not Detected Not Detected [facility] Rhinovirus/Enterov irus RNA Not Detected Not Detected [facility] Parainfluenza 1 RNA Not Detected Not Detected [facility] Parainfluenza 2 RNA Not Detected Not Detected [facility] Parainfluenza 3 RNA Not Detected Not Detected [facility] Parainfluenza 4 RNA Not Detected Not Detected [facility] B. pertussis DNA Not Detected Not Detected [facility] B. parapertussis DNA Not Detected Not Detected [facility] C. pneumoniae DNA Not Detected Not Detected [facility] M. pneumoniae DNA Not Detected Not Detected [facility] Nasopharyngeal 11/30/2024 1: 45 PM VISITING NURSE 11/30/2024 1:55 PM VISITING NURSE Narrative [facility] - 11/30/2024 2:50 PM VISITING NURSE Is the Patient experiencing symptoms consistent with COVID?->Yes Surveillance testing for transplant patient?->No Interpretive Data The [employer] FilmArray Respiratory Panel (RP2.1) assay is a multiplexed real-time PCR based nucleic acid test capable of simultaneous qualitative detection and identification of multiple respiratory viral and bacterial nucleic acids, including SARS Coronavirus 2 (the causative agent of COVID-19). The following bacteria, viruses and virus subtypes can be identified using the FilmArray RP2.1 assay: Bordetella pertussis, Bordetella parapertussis, Chlamydia pneumoniae, Mycoplasma pneumoniae, Adenovirus, SARS Coronavirus 2, seasonal coronaviruses (Coronavirus HKU1, Coronavirus NL63, Coronavirus 229E, and Coronavirus OC43), Influenza A, Influenza A subtype H1, Influenza A subtype H3, Influenza A subtype 2009 H1, Influenza B, Metapneumovirus, Parainfluenza 1, Parainfluenza 2, Parainfluenza 3, Parainfluenza 4, RSV, Rhinovirus/Enterovirus. Due to the genetic similarity between human Rhinovirus and Enterovirus, the FilmArray RP2.1 assay cannot reliably differentiate them. Coronavirus OC43 may cross-react with some isolates of Coronavirus HKU1. A dual positive result may be due to cross-reactivity or may indicate a co- infection. The detection and identification of specific viral and bacterial nucleic acids from individuals exhibiting signs and symptoms of a respiratory infection aids in the diagnosis of respiratory infection if used in conjunction with other clinical and epidemiological information. The results of this test should not be used as the sole basis for diagnosis, treatment, or other management decisions. Negative results in the setting of a respiratory illness may be due to infection with pathogens that are not detected by this test. Positive results do not rule out infection/co-infection with other organisms. The agent(s) detected by the FilmArray RP2.1 may not be the definite cause of disease. Additional testing (lab, imaging, etc.) may be necessary when evaluating a patient with possible respiratory tract infection. The FilmArray RP2.1 assay has FDA clearance for testing of MASH GRINDER swabs. The performance of additional specimen types has been assessed by the performing laboratory. The performance characteristics of this assay have been determined by [facility]. Current interpretive data was last revised on 22. Gisela Altman MD LAB MICROBIOLOGY - GENERAL ORDERABLES Final Result Performing Organization Address City/[facility] Co de Phone Number SELVIN [facility] [employer] [place] [address] * Troponin I high-sensitivity series (baseline, 2hr, 4hr, 6hr) (11/30/2024 1:44 PM VISITING NURSE) Pathologist [facility] Trop I hs 13 <=17 ng/L Comment: Interpretive Data For further hscTnI resources including the diagnostic algorithm and an aid in interpretation, copy and paste this link: [email or web address].org/[email or web address] Current Interpretive Data last revised 2020. Blood 11/30/2024 1:44 PM VISITING NURSE 11/30/2024 2:04 PM VISITING NURSE Prudencio Huang MD LAB BLOOD ORDERABLES Final Result Performing Organization Address City/[facility] Co de Phone Number SELVIN [facility] [employer] [place] [address] * (ABNORMAL) eGFR (11/30/2024 1:44 PM VISITING NURSE) Pathologist [facility] eGFR 47(L) >=60 mL/min/1. 73 m2 Comment: Interpretive Data Reference Interval Normal >/= 90 mL/min/1.73m2 Mildly decreased* 60 - 89 mL/min/1.73m2 Mildly to moderately decreased 45 - 59 mL/min/1.73m2 Moderately to severely decreased 30 - 44 mL/min/1.73m2 Severely decreased 15 - 29 mL/min/1.73m2 Kidney Failure < 15 mL/min/1.73m2 *Relative to young adult level Estimated glomerular filtration rate is determined by the 2020 CKD-EPI equation recommended by the National Kidney Foundation (A Unifying Approach to GFR Estimation: Recommendations of the NKF-ASK Task Force on Reassessing the Inclusion of Race in Diagnosing Kidney Disease, JASN 2020). The CKD-EPI equation should not be used for patients with unstable renal function and has not been validated in children and those over 70. Current interpretive data was last reviewed 2021. Blood 11/30/2024 1:44 PM VISITING NURSE 11/30/2024 2:04 PM VISITING NURSE Prudencio Huang MD LAB BLOOD ORDERABLES Final Result [facility] Department [place] [address] * Differential, auto (11/30/2024 1:44 PM VISITING NURSE) Pathologist [facility] Neutrophil abs 6.2 1.5 - 6.5 K/cumm Imm gran abs 0.1 0.0 - 0.1 K/cumm [facility] Lymphocyte abs 0.8 0.8 - 3.3 K/cumm [facility] Monocyte abs 0.7 0.2 - 0.8 K/cumm [facility] Eosinophil abs 0.2 0.0 - 0.5 K/cumm [facility] Basophil abs 0.1 0.0 - 0.1 K/cumm [facility] Neutrophil pct 77.6 % [facility] Comment: Interpretive Data Percent cell count reference ranges are not reported, since discordance with absolute values may lead to misinterpretation of CBC data. Current Interpretive Data was last revised on 2018. Imm gran pct 0.6 % [facility] Comment: Interpretive Data Percent cell count reference ranges are not reported, since discordance with absolute values may lead to misinterpretation of CBC data. Current Interpretive Data was last revised on 2018. Lymphocyte pct 9.9 % [facility] Comment: Interpretive Data Percent cell count reference ranges are not reported, since discordance with absolute values may lead to misinterpretation of CBC data. Current Interpretive Data was last revised on 2018. Monocyte pct 8.9 % [facility] Comment: Interpretive Data Percent cell count reference ranges are not reported, since discordance with absolute values may lead to misinterpretation of CBC data. Current Interpretive Data was last revised on 2018. Eosinophil pct 2.4 % [facility] Comment: Interpretive Data Percent cell count reference ranges are not reported, since discordance with absolute values may lead to misinterpretation of CBC data. Current Interpretive Data was last revised on 2018. Basophil pct 0.6 % [facility] Comment: Interpretive Data Percent cell count reference ranges are not reported, since discordance with absolute values may lead to misinterpretation of CBC data. Current Interpretive Data was last revised on 2018. Blood 11/30/2024 1:44 PM VISITING NURSE 11/30/2024 2:04 PM VISITING NURSE us Prudencio Huang MD LAB BLOOD ORDERABLES Final Result [facility] Department [place] [address] * (ABNORMAL) Pro B-type natriuretic peptide (11/30/2024 1:44 PM VISITING NURSE) NT-proBNP 1,353(H) <=450 pg/mL Comment: Interpretive Comments: A. Dyspnea in Acute Care Setting All Ages: < 300 pg/ml, acute heart failure unlikely. < 50 yrs: 300 - 450 pg/ml, further investigation warranted. > 450 pg/ml, acute heart failure likely. 50 - 74 yrs: 300 - 900 pg/ml, further investigation warranted. > 900 pg/ml, acute heart failure likely . > or = 75 yrs: 450 - 1800 pg/ml, further investigation warranted. > 1800 pg/ml, acute heart failure likely. B. Non-acute Setting < 75 yrs < 125 pg/ml, rules out heart failure. > or = 125 pg/ml, further investigation warranted. > or = 75 yrs < 450 pg/ml, rules out heart failure. > or = 450 pg/ml, further investigation warranted. - Knowledge of each individual patient's NT-proBNP range may be more useful than using similar cut-points for every patient. Please note that marked elevations in NT-proBNP levels may be observed in state other than Left Ventricular Congestive Failure, including: acute coronary syndromes, right heart strain/failure (including pulmonary embolism and cor pulmonale), critical illness, renal failure, as well as advanced age. - References: 1. Wood IZAGUIRRE et.al. Eur Heart J. 2006:27:330-337. 2. Jamila RW, Julian ZAVALA. J. AM Tegan Cardiol: Cardiovasc Imag. 2009;2: 216- 225. Interpretive Data Last Revised Date: 2018. Blood 11/30/2024 1:44 PM VISITING NURSE 11/30/2024 2:04 PM VISITING NURSE us Prudencio Huang MD LAB BLOOD ORDERABLES Final Result [facility] Department [place] [address] * (ABNORMAL) CBC with auto differential (11/30/2024 1:44 PM VISITING NURSE) Pathologist [facility] WBC 8.0 3.8 - 9.9 K/cumm Hgb 11.0(L) 11.9 - 15.5 g/dL [facility] Hct 33.9(L) 35.6 - 45.5 % [facility] Plt 448(H) 150 - 400 K/cumm [facility] MPV 9.5 9.1 - 12.[address] [facility] RBC 4.08 3.90 - 5.20 M/cumm [facility] MCV 83.1 81.3 - 96.[address] [facility] MCH 27.0(L) 27.1 - 33.[address] [facility] MCHC 32.4 32.3 - 35.7 g/dL [facility] RDW CV 15.5(H) 11.1 - 14.9 % [facility] RDW SD 46.8 35.7 - 48.[address] [facility] NRBC abs 0.00 0.00 - 0.01 K/cumm [facility] Blood 11/30/2024 1:44 PM VISITING NURSE 11/30/2024 2:04 PM VISITING NURSE us Prudencio Huang MD LAB BLOOD ORDERABLES Final Result [facility] Department [place] [address] * Lipid panel (11/30/2024 1:44 PM VISITING NURSE) Cholesterol 158 30 - 199 mg/dL Comment: Interpretive Data Ages < or = 19 years Acceptable: <170 mg/dL Borderline high: 170-199 mg/dL High: >or= 200 mg/dL Ages > or = 20 years Desirable: <200 mg/dL Borderline high: 200-239 mg/dL High: >or= 240 mg/dL Literature References: 1. Expert Panel on Integrated Guidelines for Cardiovascular Health and Risk Reduction in Children and Adolescents. Pediatrics 2011;128:S213 2. NCEP Expert Panel. Circulation 2004;110:227 Current Interpretive Data was last revised on 2018. Triglycerides 124 <=149 mg/dL [facility] Comment: Interpretive Data Ages < or = 9 years Acceptable: <75 mg/dL Borderline high: 75-99 mg/dL High: >or= 100 mg/dL Ages 10 to 20 years Acceptable: <90 mg/dL Borderline high: 90-129 mg/dL High: >or= 130 mg/dL Ages > or = 20 years Desirable: <150 mg/dL Borderline high: 150-199 mg/dL High: 200-499 mg/dL Very high: >or= 499 mg/dL Literature References: 1. Expert Panel on Integrated Guidelines for Cardiovascular Health and Risk Reduction in Children and Adolescents. Pediatrics 2011;128:S213 2. NCEP Expert Panel. Circulation 2004;110:227 Current Interpretive Data was last revised on 2018. HDL 52 >=40 mg/dL [facility] Comment: Interpretive Data Ages < or = 19 years Acceptable: >45 mg/dL Borderline low: 40-45 mg/dL Low: <40 mg/dL Ages > or = 20 years Desirable: >or= 60 mg/dL Low: <40 mg/dL Literature References: 1. Expert Panel on Integrated Guidelines for Cardiovascular Health and Risk Reduction in Children and Adolescents. Pediatrics 2011;128:S213 2. NCEP Expert Panel. Circulation 2004;110:227 Current Interpretive Data was last revised on 2018. LDL, calculated 84 <=129 mg/dL [facility] Comment: Interpretive Data Ages < or = 19 years Acceptable: <110 mg/dL Borderline high: 110-129 mg/dL High: >or= 130 mg/dL Ages > or = 20 years Optimal: <100 mg/dL Near optimal: 100-129 mg/dL Borderline high: 130-159 mg/dL High: >160 mg/dL Calculated using the Hay LDL-C estimating equation. This equation was implemented on 2024. Prior to this date LDL-C was estimated using the Friedewald equation. Literature References: 1. Expert Panel on Integrated Guidelines for Cardiovascular Health and Risk Reduction in Children and Adolescents. Pediatrics 2011;128:S213 2. NCEP Expert Panel. Circulation 2004;110:227 3. Hay Deras et al. ACOSTA Cardiol. 2019January 29;5(5):540-548. doi: [email or web address] Current Interpretive Data was last revised on 2024. Non-HDL Cholesterol 106 mg/dL [facility] Comment: Interpretive Data Ages < or = 19 years Acceptable: <120 mg/dL Borderline high: 120-144 mg/dL High: >145 mg/dL Ages > or = 20 years When triglycerides are >200 mg/dL, Non-HDL cholesterol is a secondary target of therapy with treatment goals that are 30 mg/dL greater than the LDL cholesterol target. Literature References: 1. Expert Panel on Integrated Guidelines for Cardiovascular Health and Risk Reduction in Children and Adolescents. Pediatrics 2011;128:S213 2. NCEP Expert Panel. Circulation 2004;110:227 Current Interpretive Data was last revised on 2018. Chol/HDL ratio [address] [facility] Blood 11/30/2024 1:44 PM VISITING NURSE 11/30/2024 2:04 PM VISITING NURSE us Nitin Crowe MD LAB BLOOD ORDERABLES Fi nal Result [facility] Department [place] [address] * (ABNORMAL) Comprehensive metabolic panel (11/30/2024 1:44 PM VISITING NURSE) Pathologist [facility] Sodium 137 135 - 145 mmol/L Potassium, pl 3.8 3.3 - 4.9 mmol/L [facility] Chloride 99 97 - 110 mmol/L [facility] CO2 26 22 - 32 mmol/L [facility] Anion gap 12 2 - 15 mmol/L [facility] BUN 14 6 - 25 mg/dL [facility] Creatinine 1.20(H) 0.60 - 1.10 mg/dL [facility] Glucose 118 70 - 199 mg/dL [facility] Comment: Interpretive Data Fasting glucose >/= 126 mg/dl is diagnostic for diabetes. Fasting is defined as no caloric intake for at least 8 hours. Fasting glucose between 100 mg/dl to 125 mg/dl is diagnostic of prediabetes. In a patient with classic symptoms of hyperglycemia or hyperglycemic crisis, a random glucose >/= 200 mg/dl is diagnostic for diabetes. In the absence of unequivocal hyperglycemia, results should be confirmed by repeat testing. The classification and Diagnosis of Diabetes Diabetes Care 202; 46: S19-S40. Current interpretive data was last revised 2022. Calcium 9.5 8.5 - 10.3 mg/dL [facility] Bilirubin, total 0.2 0.1 - 1.2 mg/dL [facility] Protein, pl 7.1 6.5 - 8.5 g/dL [facility] Albumin 4.1 3.5 - 5.0 g/dL [facility] Alk phos 67 40 - 130 Units/L [facility] ALT 21 7 - 45 Units/L [facility] AST 32 10 - 45 Units/L [facility] Blood 11/30/2024 1:44 PM VISITING NURSE 11/30/2024 2:04 PM VISITING NURSE Prudencio Huang MD LAB BLOOD ORDERABLES Final Result Performing Organization Address City/[facility] Co de Phone Number SELVIN [facility] Department [place] [address] * POCT glucose (11/30/2024 1:43 PM VISITING NURSE) [facility] Signature Glucose, POC 126 70 - 199 mg/dL Blood 11/30/2024 1:43 PM VISITING NURSE 11/30/2024 1:43 PM VISITING NURSE Result [facility] Prudencio Huang MD LAB POCT ORDERABLES - VIDAL CE Final Result Performing Organization Address [facility] Co de Phone Number [facility] Department [place] [address] * (ABNORMAL) ECG 12-LEAD (11/30/2024 1:37 PM VISITING NURSE) Narrative [facility] - 11/30/2024 1:37 PM VISITING NURSE Prudencio Huang MD 11/30/2024 1:37 PM ECG 12 lead Date/Time: 11/30/2024 1:37 PM Performed by: Prudencio Huang MD Authorized by: Prudencio Huang MD Quality: Tracing quality: Limited by artifact Rate: ECG rate: 109 ECG rate assessment: tachycardic Rhythm: Rhythm: sinus tachycardia Ectopy: Ectopy: none QRS: QRS axis: Normal QRS intervals: Normal Conduction: Conduction: normal ST segments: ST segments: Non-specific T waves: T waves: non-specific Other findings: Other findings: low voltage Previous ECG: Previous ECG: Unavailable Interpretation: Interpretation: abnormal Recommended Follow-up: Recommended follow up: further workup in the ED Procedure Note Prudencio Huang MD - 11/30/2024 1:37 PM CST Procedure ECG 12 lead Date/Time: 11/30/2024 1:37 PM Performed by: Prudencio Huang MD Authorized by: Prudencio Huang MD Quality: Tracing quality: Limited by artifact Rate: ECG rate: 109 ECG rate assessment: tachycardic Rhythm: Rhythm: sinus tachycardia Ectopy: Ectopy: none QRS: QRS axis: Normal QRS intervals: Normal Conduction: Conduction: normal ST segments: ST segments: Non-specific T waves: T waves: non-specific Other findings: Other findings: low voltage Previous ECG: Previous ECG: Unavailable Interpretation: Interpretation: abnormal Recommended Follow-up: Recommended follow up: further workup in the ED Prudencio Huang MD 11/30/24 1337 Prudencio Huang MD ECG ORDERABLES Final Resu lt Performing Organization Address City/[facility] Co de Phone Number [facility] * (ABNORMAL) Hemoglobin A1c (10/13/2019 2:41 AM VISITING NURSE) Hgb A1C 6.5(H) 4.0 - 5.6 % [facility] Estimated Average Glucose 140 mg/dL [facility] Comment: The ADA recommends reporting an estimated Average Glucose (eAG) with all Hemoglobin A1c results using the equation derived from a study of 507 normal and diabetic adults. Minority populations were underrepresented and children were not included. (Diabetes Care 31:1681-9663, 2008). The eAG is not equivalent to a fasting glucose. Blood specimen (specimen) 10/13/2019 2:41 AM VISITING NURSE 10/13/2019 2:46 AM VISITING NURSE Jasmyn Marion MD LAB BLOOD ORDERABLES Final Resul t Performing Organization Address City/[facility]/ZIP Co de Phone Number [address] Department [place] [address] * Screening Mammogram Bilateral W Yohannes (01/21/2019 9:35 AM CDT) Anatomical Region Laterality Modality Breast Bilateral Mammography 01/21/2019 Impressions 01/21/2019 12:56 PM CDT There is no mammographic evidence of malignancy. A return to screening mammogram in 1 year is recommended. BI-RADS Category 1: Negative Narrative 01/21/2019 12:56 PM CDT EXAM: Bilateral Digital Screening Mammogram With Tomosynthesis - 01/21/2019 HISTORY: Patient is a 73 year old female and is seen for screening. FILMS COMPARED: The present examination has been compared to prior imaging studies performed at [facility] on 02/04/2014, 02/09/2015 and 02/19/2016. MAMMOGRAM FINDINGS: Bilateral CC tomosynthesis and C-view images with tomosynthesis and bilateral MLO tomosynthesis and C-view images with tomosynthesis were obtained. Computer Aided Detection of the 2D and/or C-view images was performed. There are scattered fibroglandular densities. There are no suspicious masses, calcifications or other abnormalities. Digital breast tomosynthesis was performed and reviewed as a part of this examination. Procedure Note Hoda Bo MD - 01/21/2019 EXAM: Bilateral Digital Screening Mammogram With Tomosynthesis - 01/21/2019 HISTORY: Patient is a 73 year old female and is seen for screening. FILMS COMPARED: The present examination has been compared to prior imaging studies performed at [facility] on 02/04/2014, 02/09/2015 and 02/19/2016. MAMMOGRAM FINDINGS: Bilateral CC tomosynthesis and C-view images with tomosynthesis and bilateral MLO tomosynthesis and C-view images with tomosynthesis were obtained. Computer Aided Detection of the 2D and/or C-view images was performed. There are scattered fibroglandular densities. There are no suspicious masses, calcifications or other abnormalities. Digital breast tomosynthesis was performed and reviewed as a part ofthis examination. IMPRESSION: There is no mammographic evidence of malignancy. A return to screening mammogram in 1 year is recommended. BI-RADS Category 1: Negative Katia Duran DO IMG MAMMO PROCEDURES Final Result * BONE DENSITY, TRANSMISSION (02/04/2014 9:35 AM CDT) Anatomical Region Laterality Modality N/A Radiographic Angelika ging 02/04/2014 9:35 AM CDT Narrative 02/04/2014 10:31 AM CDT EXAM: DEXA BONE DENSITY STUDY DATE: February 04, 2014 09:35:00 AM HISTORY: Postmenopausal. BONE DENSITOMETRY OF THE LUMBAR SPINE: FINDINGS: The bone mineral density of L1-L4 was assessed by dual-energy x-ray absorptiometry. The average bone mineral density within this region is 1.198 gm/cm2. This is 3.3 standard deviations above the mean of the average bone mineral density for age- and gender-matched subjects (the Z-score ). It is 1.4 standard deviations above the mean peak bone mineral density in young adults (the T-score ). SUMMARY: THE BONE MINERAL DENSITY OF THE LUMBAR SPINE IS NORMAL. BONE DENSITOMETRY OF THE TOTAL LEFT HIP: FINDINGS: The bone mineral density of the total left hip was assessed by dual-energy x-ray absorptiometry. The average bone mineral density within the total hip region is 1.209 gm/cm2. This is 3.5 standard deviations above the mean of the average bone mineral density for age-and gender-matched subjects (the Z-score ). It is 2.2 standard deviations above the mean peak bone mineral density in young adults (the T-score ). SUMMARY: THE BONE MINERAL DENSITY OF THE TOTAL LEFT HIP IS INCREASED. BONE DENSITOMETRY OF THE LEFT FEMORAL NECK: FINDINGS: The bone mineral density of the femoral neck was assessed by dual-energy x-ray absorptiometry. The average bone mineral density within the femoral neck region is 1.105 gm/cm2. This is 3.9 standard deviations above the mean of the average bone mineral density for age-and gender-matched subjects (the Z-score ). It is 2.3 standard deviations above the mean peak bone mineral density in young adults (the T-score ). SUMMARY: THE BONE MINERAL DENSITY OF THE LEFT FEMORAL NECK IS INCREASED. General comments regarding interpretation of bone mineral density measurements: In adults, comparison of the measured bone mineral density with the average value in young normal subjects (the T-score ) has been found to be useful in assessing fracture risk. Fracture risk approximately doubles for each 1.0 standard (SD) an individual's bone mineral density is below the average value of young normal subjects. Although the changes in relative risk based on bone mineral density are continuous, a cut-off value of -2.0 SD is sometimes termed the fracture threshold , and fractures are more likely below this value. The World Health Organization (W.H.O.) has defined T-scores of -1.0 to -2.5 as indicative of low bone mass (osteopenia), and T-scores of -2.5 or lower to be indicative of osteoporosis. Radiologist: CHERISE VILLAVICENCIO M.D. Attending: N/A Requesting: DANIEL THOMAS Requesting Requesting ID: [id number] Attending Attending ID: Completed Time: 02/04/2014 09:35 AM Dictated Time: N/A Transcribed Time: 02/04/2014 10:31 AM Signed by: CHERISE VILLAVICENCIO M.D. on 02/04/2014 10:31 AM Report To 1 ID: Report To 1 Name: , Report To 1 FAX: Report To 2 ID: Report To 2 Name: , Report To 2 FAX: Report To 3 ID: Report To 3 Name: , Report To 3 FAX: NextGen Order #: Procedure Note Provider, MD Elaine - 01/28/2017 EXAM: DEXA BONE DENSITY STUDY DATE: February 04, 2014 09:35:00 AM HISTORY: Postmenopausal. BONE DENSITOMETRY OF THE LUMBAR SPINE: FINDINGS: The bone mineral density of L1-L4 was assessed by dual-energy x-ray absorptiometry. The average bone mineral density within this region is 1.198 gm/cm2. This is 3.3 standard deviations above the mean of the average bone mineral density for age- and gender-matched subjects (the Z-score ). It is 1.4 standard deviations above the mean peak bone mineral density in young adults (the T-score ). SUMMARY: THE BONE MINERAL DENSITY OF THE LUMBAR SPINE IS NORMAL. BONE DENSITOMETRY OF THE TOTAL LEFT HIP: FINDINGS: The bone mineral density of the total left hip was assessed by dual-energy x-ray absorptiometry. The average bone mineral density within the total hip region is 1.209 gm/cm2. This is 3.5 standard deviations above the mean of the average bone mineral density for age-and gender-matched subjects (the Z-score ). It is 2.2 standard deviations above the mean peak bone mineral density in young adults (the T-score ). SUMMARY: THE BONE MINERAL DENSITY OF THE TOTAL LEFT HIP IS INCREASED. BONE DENSITOMETRY OF THE LEFT FEMORAL NECK: FINDINGS: The bone mineral density of the femoral neck was assessed by dual-energy x-ray absorptiometry. The average bone mineral density within the femoral neck region is 1.105 gm/cm2. This is 3.9 standard deviations above the mean of the average bone mineral density for age-and gender-matched subjects (the Z-score ). It is 2.3 standard deviations above the mean peak bone mineral density in young adults (the T-score ). SUMMARY: THE BONE MINERAL DENSITY OF THE LEFT FEMORAL NECK IS INCREASED. General comments regarding interpretation of bone mineral density measurements: In adults, comparison of the measured bone mineral density with the average value in young normal subjects (the T-score ) has been found to be useful in assessing fracture risk. Fracture risk approximately doubles for each 1.0 standard (SD) an individual's bone mineral density is below the average value of young normal subjects. Although the changes in relative risk based on bone mineral density are continuous, a cut-off value of -2.0 SD is sometimes termed the fracture threshold , and fractures are more likely below this value. The World Health Organization (W.H.O.) has defined T-scores of -1.0 to -2.5 as indicative of low bone mass (osteopenia), and T-scores of -2.5 or lower to be indicative of osteoporosis. Radiologist: CHERISE VILLAVICENCIO M.D. Attending: N/A Requesting: DANIEL THOMAS Requesting Requesting ID: [id number] Attending Attending ID: Completed Time: 02/04/2014 09:35 AM Dictated Time: N/A Transcribed Time: 02/04/2014 10:31 AM Signed by: CHERISE VILLAVICENCIO M.D. on 02/04/2014 10:31 AM Report To 1 ID: Report To 1 Name: , Report To 1 FAX: Report To 2 ID: Report To 2 Name: , Report To 2 FAX: Report To 3 ID: Report To 3 Name: , Report To 3 FAX: NextGen Order #: us Historical Provider MD GARCIA XR PROCEDURES Final R esult from Last 3 Months or Most Recently Relevant to Health Maintenance Insurance [facility] MEDICARE ADVANTAGE [facility] MEDICARE Address: [address] [place] [phone] [facility] REF [facility] MEDICARE Address: [place] [id number] MEDICARE ADVANTAGE [facility]ALTH [facility] MEDICARE Address: [address] [address] [place] [phone] [facility] Member Subscriber Plan / Payer (Ef fective 2018-Present) Name:Fay Holguin Relation to Subscriber:Self Name:Fay Holguin Payer ID:[id number] (NAIC) Type:[employer] MEDICARE Address: [place] [id number] MEDICARE ADVANTAGE [place] [id number] Advance Directives For more information, please contact: [phone] * Full Code (Latest Code Status on File) Date Activated Date Inactivated Comments 11/30/2024 7:10 PM 12/02/2024 6:20 PM * Full Code Date Activated Date Inactivated Comments 10/12/2019 12:20 PM 10/13/2019 8:26 PM Care Teams Chain[place] Relationship Specialty Start Date End Date Payton Rae MD [address] [address] PCP - General Internal Medicine 12/01/24
--- OUTSIDE RECORDS SUMMARY | 2025-01-15 15:56 | XMS_ITS | Referral Summary ---
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 Name Role Phone Payton Rae MD Primary Care Provider Encounters Date Type Department Care Team Description 12/08/2024 SHOP/CHAP Initial Outreach [facility] [address] [place] [address] Maya Benoit, RN 12/05/2024 SHOP/CHAP Initial Outreach [facility] [address] [place] [address] Maya Benoit, RN 12/04/2024 SHOP/CHAP Initial Outreach [facility] [address] [place] [address] Maya Benoit, RN 12/03/2024 SHOP/CHAP Initial Outreach [facility] [address] [place] [address] Maya Benoit, RN 12/03/2024 SHOP/CHAP Initial Eligibility Review [facility] [address] [place] [address] Maya Benoit, RN 11/30/2024 1:34 PM CATERING ADMINISTRATIVE ASSISTANT - 12/02/2024 2:14 PM CATERING ADMINISTRATIVE ASSISTANT Hospital Encounter [facility] [address] [place] [address] BausaPrudencio murillo MD Kalvala, Lalit Chandra, MD Meena, Fnu, MD COPD exacerbation (HCC) (Primary Dx); Influenza A Discharge Disposition: Discharge to home or self care 12/01/2024 8:40 AM CATERING ADMINISTRATIVE ASSISTANT Ancillary Procedure [facility] IP [address] [facility] [address] [place] [address] from Last 3 Months Allergies Active Allergy Reactions Criticality Noted Date [...] 12/01/2024 Assessment & Plan (12/01/2024 4:44 PM CATERING ADMINISTRATIVE ASSISTANT): Endorses RLE edema for ~6 months since a fall w/ leg injury. -PT eval tomorrow -cont home lasix A-fib 12/01/2024 Assessment & Plan (12/01/2024 4:42 PM CATERING ADMINISTRATIVE ASSISTANT): H/o CAD s/p PCI , HTN/ HLD [...] 11/30/2024 Assessment & Plan (12/02/2024 12:53 PM CATERING ADMINISTRATIVE ASSISTANT): Acute hypoxic respiratory failure sec to COPD exacerbation due to influenza - 5L O2 initially, currently on 2L O2 - Pt presented with progressive, SOB, congestion, productive cough. Requiring 5L NC. Wheezing on exam. RVP +flu A. CXR clear, received dex 10mg, duonebs, azithro, tamiflu in ED, currently on prednisone. Plan -pred 40 daily x4d -azithro x3d -sched Xopenex -cont tamiflu (11/30- ) -anti-tussives prn, wean O2 as able. Home O2 eval done and on room air. 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 Continue current medical regimen [...] UNCNTR Assessment & Plan (12/01/2024 12:40 AM CATERING ADMINISTRATIVE ASSISTANT): Home reg: metformin -accuchecks + SSI Gastroesophageal reflux disease 11/16/2009 Overview (01/06/2017): Esophageal Reflux Diverticular disease of colon 11/16/2009 Overview (01/06/2017): Diverticulosis of colon Resolved Problems Problem Noted Date Diagnosed Date Resolved Date Influenza A 12/01/2024 12/01/2024 Assessment & Plan (12/01/2024 12:10 AM CATERING ADMINISTRATIVE ASSISTANT): -tamiflu (3/3- ) -tx COPD exac as above -wean O2 as able Stage 3a chronic kidney disease 12/01/2024 12/01/2024 Assessment & Plan (12/01/2024 12:44 AM CATERING ADMINISTRATIVE ASSISTANT): Cr 1.2 (was ~1.0 in 2023). -trend BMP Hyperlipidemia 02/14/2014 12/01/2024 Overview (01/06/2017): HYPERLIPIDEMIA NEC/NOS Assessment & Plan (12/01/2024 12:45 AM CATERING ADMINISTRATIVE ASSISTANT): -cont statin Essential hypertension 02/14/201412/01 Overview (01/06/2017): HYPERTENSION NOS Assessment & Plan (12/01/2024 12:39 AM CATERING ADMINISTRATIVE ASSISTANT): -cont valsartan, dilt, HCTZ Assessment & Plan (07/25/2018 10:36 AM CDT): Hypertension is improving with treatment. Dietary sodium restriction. Continue current medications. Blood pressure will be reassessed at the next regular appointment. Immunizations Immunization Administration Dates Next Due Influenza, Split 07/09/2012,08/11/2011, 0 Influenza, Trivalent, IM (MDV) 09/04/2008 Influenza, Trivalent, Preser vative Free, Intramuscular 07/01/2011 Pneumococcal Polysaccharide PPV23 07/01/2011,01/2008 Tdap 12/31/2008 Social History Tobacco Use Types Packs/Day Years [...] on file Legal Sex Female 11:46 PM CATERING ADMINISTRATIVE ASSISTANT Gender Identity Not on file Sexual Orientation Not on file Last Filed Vital Signs Vital Sign Reading Time Taken Comments Blood Pressure 132/71 12/02/2024 12:58 PM CATERING ADMINISTRATIVE ASSISTANT Pulse 99 12/02/2024 12:58 PM CATERING ADMINISTRATIVE ASSISTANT Temperature 37 C (98.6 F) 12/02/2024 12:58 PM CATERING ADMINISTRATIVE ASSISTANT Respiratory Rate 20 12/02/2024 12:58 PM CATERING ADMINISTRATIVE ASSISTANT Oxygen Saturation 95% 12/02/2024 12:58 PM CATERING ADMINISTRATIVE ASSISTANT Inhaled Oxygen Concentration - - Weight 62.7 kg (138 lb 3.2 oz) 11/30/2024 7:00 P M CATERING ADMINISTRATIVE ASSISTANT Height 154.9 cm (5' 1 ) 11/30/2024 7:00 PM CATERING ADMINISTRATIVE ASSISTANT Body Mass Index 26.11 11/30/2024 7:00 PM CATERING ADMINISTRATIVE ASSISTANT Plan of Treatment Not on file Procedures Procedure Name Priority Date/Time Associated Diagnosis Comments POCT GLUCOSE DEVICE Routine 12/02/2024 1 2:56 PM CATERING ADMINISTRATIVE ASSISTANT HOME O2 EVAL (DESATURATION SCREEN) Routine 12/02/2024 9:18 AM CATERING ADMINISTRATIVE ASSISTANT POCT GLUCOSE DEVICE Routine 12/02/2024 8 :19 AM CATERING ADMINISTRATIVE ASSISTANT POCT GLUCOSE DEVICE Routine 12/02/2024 1 :21 AM CATERING ADMINISTRATIVE ASSISTANT EGFR Routine 12/01/2024 9:18 PM CATERING ADMINISTRATIVE ASSISTANT DIFFERENTIAL AUTO Routine 12/01/2024 9:1 8 PM CATERING ADMINISTRATIVE ASSISTANT MAGNESIUM Routine 12/01/2024 9:18 PM CATERING ADMINISTRATIVE ASSISTANT PROTIME-INR Routine 12/01/2024 9:18 PM CATERING ADMINISTRATIVE ASSISTANT CBC WITH AUTO DIFFERENTIAL Routine 12/01/2024 9:18 PM CATERING ADMINISTRATIVE ASSISTANT BASIC METABOLIC PANEL Routine 12/01/2024 9:18 PM CATERING ADMINISTRATIVE ASSISTANT POCT GLUCOSE DEVICE Routine 12/01/2024 9 :09 PM CATERING ADMINISTRATIVE ASSISTANT POCT GLUCOSE DEVICE Routine 12/01/2024 5 :33 PM CATERING ADMINISTRATIVE ASSISTANT POCT GLUCOSE DEVICE Routine 12/01/2024 1 :01 PM CATERING ADMINISTRATIVE ASSISTANT US VEIN DUPLEX LOWER EXTREMITY RIGHT LIMITED IP Routine 12/01/2024 1:00 PM CATERING ADMINISTRATIVE ASSISTANT XR CHEST 1 VIEW ED Urgent/IP Urgent 12/01/2024 12:52 PM CATERING ADMINISTRATIVE ASSISTANT EGFR STAT 12/01/2024 11:15 AM CATERING ADMINISTRATIVE ASSISTANT DIFFERENTIAL AUTO STAT 12/01/2024 11: 15 AM CATERING ADMINISTRATIVE ASSISTANT MAGNESIUM STAT 12/01/2024 11:15 AM CATERING ADMINISTRATIVE ASSISTANT PRO B-TYPE NATRIURETIC PEPTIDE STAT 12/01/2024 11:15 AM CATERING ADMINISTRATIVE ASSISTANT TROPONIN I HIGH-SENSITIVITY STAT 12/01/2024 11:15 AM CATERING ADMINISTRATIVE ASSISTANT LACTATE STAT 12/01/2024 11:15 AM CATERING ADMINISTRATIVE ASSISTANT BLOOD GAS, VENOUS STAT 12/01/2024 11: 15 AM CATERING ADMINISTRATIVE ASSISTANT COMPREHENSIVE METABOLIC PANEL STAT 12/01/2024 11:15 AM CATERING ADMINISTRATIVE ASSISTANT CBC WITH AUTO DIFFERENTIAL STAT 12/01/2024 11:15 AM CATERING ADMINISTRATIVE ASSISTANT POCT GLUCOSE DEVICE Routine 12/01/2024 7 :55 AM CATERING ADMINISTRATIVE ASSISTANT POCT GLUCOSE DEVICE Routine 12/01/2024 6 :45 AM CATERING ADMINISTRATIVE ASSISTANT POCT GLUCOSE DEVICE Routine 12/01/2024 1 2:38 AM CATERING ADMINISTRATIVE ASSISTANT PROTIME-INR Routine 12/01/2024 12:19 AM CATERING ADMINISTRATIVE ASSISTANT TROPONIN I HIGH-SENSITIVITY 6-HOUR Timed 12/01/2024 12:19 AM CATERING ADMINISTRATIVE ASSISTANT POCT GLUCOSE DEVICE Routine 11/30/2024 1 0:27 PM CATERING ADMINISTRATIVE ASSISTANT POCT GLUCOSE DEVICE Routine 11/30/2024 8 :31 PM CATERING ADMINISTRATIVE ASSISTANT POCUS CARDIAC 11/30/2024 3:16 PM CATERING ADMINISTRATIVE ASSISTANT SC CRITICAL CARE ILL/INJURED PATIENT INIT 30-74 MIN Routine 11/30/2024 2:14 PM CATERING ADMINISTRATIVE ASSISTANT XR CHEST 1 VIEW ED 11/30/2024 1:56 PM CATERING ADMINISTRATIVE ASSISTANT RESPIRATORY PATHOGEN PANEL STAT 11/30/2024 1:45 PM CATERING ADMINISTRATIVE ASSISTANT LIPID PANEL STAT 11/30/2024 1:44 PM CATERING ADMINISTRATIVE ASSISTANT EGFR STAT 11/30/2024 1:44 PM CATERING ADMINISTRATIVE ASSISTANT DIFFERENTIAL AUTO STAT 11/30/2024 1:4 4 PM CATERING ADMINISTRATIVE ASSISTANT PRO B-TYPE NATRIURETIC PEPTIDE STAT 11/30/2024 1:44 PM CATERING ADMINISTRATIVE ASSISTANT TROPONIN I HIGH-SENSITIVITY SERIES (BASELINE, 2HR, 4HR, 6HR) STAT 11/30/2024 1:44 PM CATERING ADMINISTRATIVE ASSISTANT CBC WITH AUTO DIFFERENTIAL STAT 11/30/2024 1:44 PM CATERING ADMINISTRATIVE ASSISTANT COMPREHENSIVE METABOLIC PANEL STAT 11/30/2024 1:44 PM CATERING ADMINISTRATIVE ASSISTANT POCT GLUCOSE DEVICE Routine 11/30/2024 1 :43 PM CATERING ADMINISTRATIVE ASSISTANT ECG 12-LEAD STAT 11/30/2024 1:37 PM CATERING ADMINISTRATIVE ASSISTANT HEMOGLOBIN A1C Routine 10/13/2019 2:41 AM CATERING ADMINISTRATIVE ASSISTANT SCREENING MAMMOGRAM BILATERAL W YOHANNES Schedule Routine, Read Routine (OP Routine) 01/21/2019 9:35 AM CDT Encounter for screening mammogram for malignant neoplasm of breast BONE DENSITY, TRANSMISSION Routine 02/04/2014 9:35 AM CDT from Last 3 Months or Most Recently Relevant to Health Maintenance Results * POCT glucose (12/02/2024 12:56 PM CATERING ADMINISTRATIVE ASSISTANT) Glucose, POC 199 70 - 199 mg/dL Blood 12/02/2024 12:5 6 PM CATERING ADMINISTRATIVE ASSISTANT 12/02/2024 12:56 PM CATERING ADMINISTRATIVE ASSISTANT John Camacho MD LAB POCT ORDERABLES - DEVICE Fin al Result Performing Organization Address City/[facility] Co de Phone Number [facility] [place] [address] * POCT glucose (12/02/2024 8:19 AM CATERING ADMINISTRATIVE ASSISTANT) Glucose, POC 89 70 - 199 mg/dL Blood 12/02/2024 8:19 AM CATERING ADMINISTRATIVE ASSISTANT 12/02/2024 8:19 AM CATERING ADMINISTRATIVE ASSISTANT John Camacho MD LAB POCT ORDERABLES - DEVICE Fin al Result Performing Organization Address [facility] de Phone Number [facility] [place] [email or web address] [place] [address] * POCT glucose (12/02/2024 1:21 AM CATERING ADMINISTRATIVE ASSISTANT) Glucose, POC 91 70 - 199 mg/dL Blood 12/02/2024 1:21 AM CATERING ADMINISTRATIVE ASSISTANT 12/02/2024 1:21 AM CATERING ADMINISTRATIVE ASSISTANT Nitin Crowe MD LAB POCT ORDERABLES - D EVICE Final Result Performing Organization Address [facility] Co de Phone Number [facility] [email or web address] [place] [address] * (ABNORMAL) eGFR (12/01/2024 9:18 PM CATERING ADMINISTRATIVE ASSISTANT) eGFR 47(L) >=60 mL/min/1. 73 m2 Comment: [...] last reviewed 2021. Blood 12/01/2024 9:18 PM CATERING ADMINISTRATIVE ASSISTANT 12/01/2024 10:10 PM CATERING ADMINISTRATIVE ASSISTANT us Veronica Anderson MD LAB BLOOD ORDERABLES F inal Result [facility] [address] [facility] Department [place] [address] * (ABNORMAL) Differential, auto (12/01/2024 9:18 PM CATERING ADMINISTRATIVE ASSISTANT) Neutrophil abs 8.0(H) 1.5 - 6.5 K/cumm Imm gran abs 0.0 0.0 - 0.1 K/cumm [facility] Lymphocyte abs 0.3(L) 0.8 - 3.3 K/cumm [facility] Monocyte abs 0.5 0.2 - 0.8 K/cumm [facility] Eosinophil abs 0.0 0.0 - 0.5 K/cumm [facility] Basophil abs 0.0 0.0 - 0.1 K/cumm [facility] Neutrophil pct 90.5 % [facility] Comment: Interpretive Data Percent cell count reference ranges are not reported, since discordance with absolute values may lead to misinterpretation of CBC data. Current Interpretive Data was last revised on 2018. Imm gran pct 0.5 % [facility] Comment: Interpretive Data Percent cell count reference ranges are not reported, since discordance with absolute values may lead to misinterpretation of CBC data. Current Interpretive Data was last revised on 2018. Lymphocyte pct 3.2 % [facility] Comment: Interpretive Data Percent cell count reference ranges are not reported, since discordance with absolute values may lead to misinterpretation of CBC data. Current Interpretive Data was last revised on 2018. Monocyte pct 5.7 % [facility] Comment: Interpretive Data Percent cell count reference ranges are not reported, since discordance with absolute values may lead to misinterpretation of CBC data. Current Interpretive Data was last revised on 2018. Eosinophil pct 0.0 % [facility] Comment: Interpretive Data Percent cell count reference ranges are not reported, since discordance with absolute values may lead to misinterpretation of CBC data. Current Interpretive Data was last revised on 2018. Basophil pct 0.1 % [facility] Comment: Interpretive Data Percent cell count reference ranges are not reported, since discordance with absolute values may lead to misinterpretation of CBC data. Current Interpretive Data was last revised on 2018. Blood 12/01/2024 9:18 PM CATERING ADMINISTRATIVE ASSISTANT 12/01/2024 10:09 PM CATERING ADMINISTRATIVE ASSISTANT us Veronica Anderson MD LAB BLOOD ORDERABLES F inal Result [facility] Department [place] [address] * (ABNORMAL) CBC with auto differential (12/01/2024 9:18 PM CATERING ADMINISTRATIVE ASSISTANT) WBC 8.8 3.8 - 9.9 K/cumm Hgb 10.2(L) 11.9 - 15.5 g/dL [facility] Hct 30.3(L) 35.6 - 45.5 % [facility] Plt 452(H) 150 - 400 K/cumm [facility] MPV 9.6 9.1 - 12.3 fL [facility] RBC 3.75(L) 3.90 - 5.20 M/cumm [facility] MCV 80.8(L) 81.3 - 96.4 fL [facility] MCH 27.2 27.1 - 33.3 pg [facility] MCHC 33.7 32.3 - 35.7 g/dL [facility] RDW CV 15.4(H) 11.1 - 14.9 % [facility] RDW SD 45.1 35.7 - 48.1 fL [facility] NRBC abs 0.00 0.00 - 0.01 K/cumm [facility] Blood 12/01/2024 9:18 PM CATERING ADMINISTRATIVE ASSISTANT 12/01/2024 10:09 PM CATERING ADMINISTRATIVE ASSISTANT Veronica Anderson MD LAB BLOOD ORDERABLES F inal Result Performing Organization Address [facility] de Phone Number [facility] [email or web address] [address] * (ABNORMAL) Protime-INR (12/01/2024 9:18 PM CATERING ADMINISTRATIVE ASSISTANT) PT 23.5(H) 9.7 - 13.0 sec INR 2.14(H) 0.90 - 1.20 [facility] Comment: Interpretive data Oral anticoagulant therapeutic ranges: Venous thromboembolism prophylaxis or treatment: 2.0-3.0 CARDIOLOGY Standard range: 2.0-3.0 High-intensity range: 2.5-3.5 Refer to indication-specific guidelines for appropriate target ranges for prosthetic heart valve replacement. Current interpretive data was last revised on 2019. Blood 12/01/2024 9:18 PM CATERING ADMINISTRATIVE ASSISTANT 12/01/2024 9:57 PM CATERING ADMINISTRATIVE ASSISTANT Veronica Anderson MD LAB BLOOD ORDERABLES F inal Result Performing Organization Address [facility] Co de Phone Number [facility] [place] [email or web address] [place] [address] * (ABNORMAL) Magnesium (12/01/2024 9:18 PM CATERING ADMINISTRATIVE ASSISTANT) Magnesium 2.8(H) 1.4 - 2.5 mg/dL Blood 12/01/2024 9:18 PM CATERING ADMINISTRATIVE ASSISTANT 12/01/2024 10:10 PM CATERING ADMINISTRATIVE ASSISTANT us John Camacho MD LAB BLOOD ORDERABLES Final Resul t [facility] Department [place] [address] * (ABNORMAL) Basic metabolic panel (12/01/2024 9:18 PM CATERING ADMINISTRATIVE ASSISTANT) Pathologist [facility] Sodium 137 135 - 145 mmol/L Potassium, pl 3.9 3.3 - 4.9 mmol/L [facility] Chloride 100 97 - 110 mmol/L [facility] CO2 29 22 - 32 mmol/L [facility] Anion gap 8 2 - 15 mmol/L [facility] BUN 23 6 - 25 mg/dL [facility] Creatinine 1.19(H) 0.60 - 1.10 mg/dL [facility] Glucose 234(H) 70 - 199 mg/dL [facility] Comment: Interpretive Data Fasting glucose [...] 2022. Calcium 9.2 8.5 - 10.3 mg/dL [facility] Blood 12/01/2024 9:18 PM CATERING ADMINISTRATIVE ASSISTANT 12/01/2024 10:10 PM CATERING ADMINISTRATIVE ASSISTANT us Veronica Anderson MD LAB BLOOD ORDERABLES F inal Result Performing Organization Address City/[facility]/[place] [address] * (ABNORMAL) POCT glucose (12/01/2024 9:09 PM CATERING ADMINISTRATIVE ASSISTANT) Glucose, POC 254(H) 70 - 199 mg/dL Blood 12/01/2024 9:09 PM CATERING ADMINISTRATIVE ASSISTANT 12/01/2024 9:09 PM CATERING ADMINISTRATIVE ASSISTANT Nitin Crowe MD LAB POCT ORDERABLES - D EVICE Final Result Performing Organization Address City/[facility]/[place] [address] * (ABNORMAL) POCT glucose (12/01/2024 5:33 PM CATERING ADMINISTRATIVE ASSISTANT) Glucose, POC 228(H) 70 - 199 mg/dL Blood 12/01/2024 5:33 PM CATERING ADMINISTRATIVE ASSISTANT 12/01/2024 5:33 PM CATERING ADMINISTRATIVE ASSISTANT Nitin Crowe MD LAB POCT ORDERABLES - D EVICE Final Result Performing Organization Address City/[facility]/[place] [address] * (ABNORMAL) POCT glucose (12/01/2024 1:01 PM CATERING ADMINISTRATIVE ASSISTANT) Glucose, POC 234(H) 70 - 199 mg/dL Blood 12/01/2024 1:01 PM CATERING ADMINISTRATIVE ASSISTANT 12/01/2024 1:01 PM CATERING ADMINISTRATIVE ASSISTANT Nitin Crowe MD LAB POCT ORDERABLES - D EVICE Final Result Performing Organization Address City/[facility]/[place] [address] * US VEIN DUPLEX LOWER EXTREMITY RIGHT LIMITED, UNILATERAL (12/01/2024 1:00 PM CATERING ADMINISTRATIVE ASSISTANT) Anatomical Region Laterality Modality Vascular Right Ultrasound 12/01/2024 11:5 6 AM CATERING ADMINISTRATIVE ASSISTANT Narrative 12/01/2024 2:20 PM CATERING ADMINISTRATIVE ASSISTANT [facility] - Department of Vascular Surgery, Vascular Laboratory [address] [place] [id number] Lower Extremity Venous Ultrasound Report Patient Name: FAY HOLGUIN M : 1945 (79y 9m) Study Date: 12/01/2024 11:56:15 AM Gender: F Tech: Location: [id number] Ref Provider: VERONICA ANDERSON Quality: Adequate Order [...] Swelling, Lower Extremity, Right - FINDINGS: Performing Director Targeted Marketing: Shayna Grace RVT. Right: Venous Doppler signals [...] above. Electronically Signed By: Prudencio Ferrer MD [facility] [phone] 12/01/2024 1:04:52 PM CATERING ADMINISTRATIVE ASSISTANT Procedure Note Prudencio Ferrer MD - 12/01/2024 [facility] - Department of Vascular Surgery,Vascular Laboratory [address] [place] [address] Lower Extremity Venous Ultrasound Report Patient Name: FAY HOLGUIN M : 1945 (79y 9m) Study Date: 12/01/2024 11:56:15 AM Gender: F Tech: Location: [id number] Ref Provider: VERONICA ANDERSON Quality: Adequate Order Provider: VERONICA ANDERSON PROCEDURES: Vascular Report: Venous Duplex imaging was performed in the right lower extremity. Thecommon femoral, femoral, popliteal, posterior tibial, peroneal veins were evaluated forpatency, spontaneity and phasicity with Doppler, compression and augmentationmaneuvers. Great saphenous vein proximal at the junction was evaluated with compressionmaneuvers. INDICATIONS: Swelling, Lower Extremity, Right - FINDINGS: Performing Director Targeted Marketing: Shayna Grace RVT. Right: Venous Doppler signals [...] above. Electronically Signed By: Prudencio Ferrer MD [facility] [phone] 12/01/2024 1:04:52 PM CATERING ADMINISTRATIVE ASSISTANT us Veronica Anderson MD IMG US PROCEDURES Maye l Result * XR Chest 1 View (12/01/2024 12:52 PM CATERING ADMINISTRATIVE ASSISTANT) Anatomical Region Laterality Modality Body, Chest N/A Computed Radiogr aphy 12/01/2024 1:46 PM CATERING ADMINISTRATIVE ASSISTANT Impressions 12/01/2024 2:25 PM CATERING ADMINISTRATIVE ASSISTANT Mild left basilar atelectasis. No consolidation. No effusion. There is no pneumothorax. Unchanged cardiomediastinal silhouette. Dictated by: Anahy Eaton MD The radiology attending physician has personally reviewed this study, and had reviewed and/or edited this written report and agrees with it. Electronically signed by: Alba Nava M.D. Narrative 12/01/2024 2:25 PM CATERING ADMINISTRATIVE ASSISTANT EXAMINATION: XR CHEST 1 VIEW HISTORY: Shortness of breath COMPARISON:11/30/2024 Procedure Note Alba Nava MD - 12/01/2024 EXAMINATION: XR CHEST 1 VIEW HISTORY: Shortness of breath COMPARISON:11/30/2024 IMPRESSION: Mild left basilar atelectasis. No consolidation. No effusion. There is no pneumothorax. Unchanged cardiomediastinal silhouette. Dictated by: Anayh Eaton MD The radiology attending physician has personally reviewed this study, and had reviewed and/or edited this written report and agrees with it. Electronically signed by: Alba Nava M.D. Nitin Crowe MD IMG XR PROCEDURES Final Result * Troponin I high-sensitivity (12/01/2024 11:15 AM CATERING ADMINISTRATIVE ASSISTANT) [facility] Trop I hs 14 <=17 ng/L Comment: Interpretive Data For further [facility] resources including the diagnostic algorithm and an aid in interpretation, copy and paste this link: [email or web address] Current Interpretive Data last revised 2020. Blood 12/01/2024 11:1 5 AM CATERING ADMINISTRATIVE ASSISTANT 12/01/2024 11:44 AM CATERING ADMINISTRATIVE ASSISTANT Nitin Crowe MD LAB BLOOD ORDERABLES Fi nal Result [facility] Department [place] [address] * Lactate (12/01/2024 11:15 AM CATERING ADMINISTRATIVE ASSISTANT) [facility] Lactate 1.2 0.7 - 2.0 mmol/L Blood 12/01/2024 11:1 5 AM CATERING ADMINISTRATIVE ASSISTANT 12/01/2024 11:44 AM CATERING ADMINISTRATIVE ASSISTANT Nitin Crowe MD LAB BLOOD ORDERABLES Fi nal Result Performing Organization Address City/[facility]/ZIP Co de Phone Number [facility] [place] [email or web address] [place] [address] * (ABNORMAL) eGFR (12/01/2024 11:15 AM CATERING ADMINISTRATIVE ASSISTANT) [facility] eGFR 51(L) >=60 mL/min/1. 73 m2 Comment: [...] reviewed 2021. Blood 12/01/2024 11:1 5 AM CATERING ADMINISTRATIVE ASSISTANT 12/01/2024 11:44 AM CATERING ADMINISTRATIVE ASSISTANT Nitin Crowe MD LAB BLOOD ORDERABLES Fi nal Result [facility] Department [place] [address] * (ABNORMAL) Differential, auto (12/01/2024 11:15 AM CATERING ADMINISTRATIVE ASSISTANT) Neutrophil abs 9.7(H) 1.5 - 6.5 K/cumm Imm gran abs 0.0 0.0 - 0.1 K/cumm [facility] [facility] Lymphocyte abs 0.3(L) 0.8 - 3.3 K/cumm [facility] Monocyte abs 0.4 0.2 - 0.8 K/cumm [facility] Eosinophil abs 0.0 0.0 - 0.5 K/cumm [facility] Basophil abs 0.0 0.0 - 0.1 K/cumm [facility] Neutrophil pct 92.8 % [facility] Comment: Interpretive Data Percent cell count reference ranges are not reported, since discordance with absolute values may lead to misinterpretation of CBC data. Current Interpretive Data was last revised on 2018. Imm gran pct 0.4 % [facility] Comment: Interpretive Data Percent cell count reference ranges are not reported, since discordance with absolute values may lead to misinterpretation of CBC data. Current Interpretive Data was last revised on 2018. Lymphocyte pct 2.9 % [facility] Comment: Interpretive Data Percent cell count reference ranges are not reported, since discordance with absolute values may lead to misinterpretation of CBC data. Current Interpretive Data was last revised on 2018. Monocyte pct 3.7 % [facility] Comment: Interpretive Data Percent cell count reference ranges are not reported, since discordance with absolute values may lead to misinterpretation of CBC data. Current Interpretive Data was last revised on 2018. Eosinophil pct 0.0 % [facility] Comment: Interpretive Data Percent cell count reference ranges are not reported, since discordance with absolute values may lead to misinterpretation of CBC data. Current Interpretive Data was last revised on 2018. Basophil pct 0.2 % [facility] Comment: Interpretive Data Percent cell count reference ranges are not reported, since discordance with absolute values may lead to misinterpretation of CBC data. Current Interpretive Data was last revised on 2018. Blood 12/01/2024 11:1 5 AM CATERING ADMINISTRATIVE ASSISTANT 12/01/2024 11:44 AM CATERING ADMINISTRATIVE ASSISTANT Nitin Crowe MD LAB BLOOD ORDERABLES Fi nal Result Performing Organization Address [facility] Co de Phone Number [facility] Department [place] [address] * (ABNORMAL) Pro B-type natriuretic peptide (12/01/2024 11:15 AM CATERING ADMINISTRATIVE ASSISTANT) NT-proBNP 1,970(H) <=450 pg/mL Comment: Interpretive Comments: [...] Date: 2018. Blood 12/01/2024 11:1 5 AM CATERING ADMINISTRATIVE ASSISTANT 12/01/2024 11:44 AM CATERING ADMINISTRATIVE ASSISTANT Nitin Crowe MD LAB BLOOD ORDERABLES Fi nal Result Performing Organization Address [facility] Co de Phone Number [facility] [place] [address] * (ABNORMAL) CBC with auto differential (12/01/2024 11:15 AM CATERING ADMINISTRATIVE ASSISTANT) [facility] WBC 10.4(H) 3.8 - 9.9 K/cumm Hgb 10.6(L) 11.9 - 15.5 g/dL [facility] Hct 31.8(L) 35.6 - 45.5 % [facility] Plt 415(H) 150 - 400 K/cumm [facility] MPV 9.5 9.1 - 12.3 fL [facility] RBC 3.87(L) 3.90 - 5.20 M/cumm [facility] MCV 82.2 81.3 - 96.4 fL [facility] MCH 27.4 27.1 - 33.3 pg [facility] MCHC 33.3 32.3 - 35.7 g/dL [facility] RDW CV 15.5(H) 11.1 - 14.9 % [facility] RDW SD 46.3 35.7 - 48.1 fL [facility] NRBC abs 0.00 0.00 - 0.01 K/cumm [facility] Blood 12/01/2024 11:1 5 AM CATERING ADMINISTRATIVE ASSISTANT 12/01/2024 11:44 AM CATERING ADMINISTRATIVE ASSISTANT Nitin Crowe MD LAB BLOOD ORDERABLES Fi nal Result Performing Organization Address City/[facility] Co de Phone Number [facility] Department [place] [address] * Magnesium (12/01/2024 11:15 AM CATERING ADMINISTRATIVE ASSISTANT) [facility] Magnesium 1.9 1.4 - 2.5 mg/dL Blood 12/01/2024 11:1 5 AM CATERING ADMINISTRATIVE ASSISTANT 12/01/2024 11:44 AM CATERING ADMINISTRATIVE ASSISTANT Nitin Crowe MD LAB BLOOD ORDERABLES Fi nal Result [facility] Department [place] [address] * Blood gas, venous (12/01/2024 11:15 AM CATERING ADMINISTRATIVE ASSISTANT) Pathologist [facility] pH, Venous 7.40 7.32 - 7.43 PCO2, Venous 40 40 - 50 mmHg [facility] PO2, Venous 137 mmHg [facility] Comment: Interpretive Data No Reference Range Established Current Interpretive Data was last revised on 2018. HCO3 Venous, Calculated 25 20 - 30 mmol/L [facility] BE, venous 0 mmol/L [facility] Comment: Interpretive Data No Reference Range Established Current Interpretive Data was last revised on 2018. Blood 12/01/2024 11:1 5 AM CATERING ADMINISTRATIVE ASSISTANT 12/01/2024 11:38 AM CATERING ADMINISTRATIVE ASSISTANT Nitin Crowe MD LAB BLOOD ORDERABLES [facility] Result Performing Organization Address [facility] de Phone Number [facility] Department [place] [address] * (ABNORMAL) Comprehensive metabolic panel (12/01/2024 11:15 AM CATERING ADMINISTRATIVE ASSISTANT) [facility] Sodium 141 135 - 145 mmol/L Potassium, pl 3.5 3.3 - 4.9 mmol/L [facility] Chloride 102 97 - 110 mmol/L [facility] CO2 26 22 - 32 mmol/L [facility] Anion gap 13 2 - 15 mmol/L [facility] BUN 19 6 - 25 mg/dL [facility] Creatinine 1.12(H) 0.60 - 1.10 mg/dL [facility] Glucose 201(H) 70 - 199 mg/dL [facility] Comment: Interpretive Data Fasting glucose [...] 2022. Calcium 9.5 8.5 - 10.3 mg/dL [facility] Bilirubin, total 0.2 0.1 - 1.2 mg/dL [facility] Protein, pl 6.9 6.5 - 8.5 g/dL [facility] Albumin 3.9 3.5 - 5.0 g/dL [facility] Alk phos 58 40 - 130 Units/L [facility] ALT 25 7 - 45 Units/L [facility] AST 38 10 - 45 Units/L [facility] Blood 12/01/2024 11:1 5 AM CATERING ADMINISTRATIVE ASSISTANT 12/01/2024 11:44 AM CATERING ADMINISTRATIVE ASSISTANT Nitin Crowe MD LAB BLOOD ORDERABLES Fi nal Result Performing Organization Address City/[facility]/ZIP Co de Phone Number [facility] Department [place] [address] * POCT glucose (12/01/2024 7:55 AM CATERING ADMINISTRATIVE ASSISTANT) Glucose, POC 150 70 - 199 mg/dL Blood 12/01/2024 7:55 AM CATERING ADMINISTRATIVE ASSISTANT 12/01/2024 7:55 AM CATERING ADMINISTRATIVE ASSISTANT Nitin Crowe MD LAB POCT ORDERABLES - D EVICE Final Result [facility] [place] [email or web address] [place] [address] * POCT glucose (12/01/2024 6:45 AM CATERING ADMINISTRATIVE ASSISTANT) Glucose, POC 127 70 - 199 mg/dL Blood 12/01/2024 6:45 AM CATERING ADMINISTRATIVE ASSISTANT 12/01/2024 6:45 AM CATERING ADMINISTRATIVE ASSISTANT us Nitin Crowe MD LAB POCT ORDERABLES - D EVICE Final Result Performing Organization Address City/[facility]/ZIP Co de Phone Number [facility] Department [place] [email or web address] [place] [address] * (ABNORMAL) POCT glucose (12/01/2024 12:38 AM CATERING ADMINISTRATIVE ASSISTANT) Glucose, POC 216(H) 70 - 199 mg/dL Blood 12/01/2024 12:3 8 AM CATERING ADMINISTRATIVE ASSISTANT 12/01/2024 12:38 AM CATERING ADMINISTRATIVE ASSISTANT Result [facility] Nitin Crowe MD LAB POCT ORDERABLES - D EVICE Final Result Performing Organization Address [facility] de Phone Number [facility] [place] [email or web address] [place] [address] * Troponin I high-sensitivity 6-hour (12/01/2024 12:19 AM CATERING ADMINISTRATIVE ASSISTANT) Trop I hs 10 <=17 ng/L Comment: Interpretive Data For further hscTnI resources including the diagnostic algorithm and an aid in interpretation, copy and paste this link: https://bjhlab.testcatalog.org/show/hsTrop-1 Current Interpretive Data last revised 2020. Trop I hs delta See Comment ng/L [facility] Comment:Inappropriate collec tion time to report a delta. Trop I hs pct delta See Comment % [facility] Comment:Inappropriate collec tion time to report a delta. Trop I hs interp See Comment [facility] Comment:Inappropriate collec tion time to report a delta. Blood 12/01/2024 12:1 9 AM CATERING ADMINISTRATIVE ASSISTANT 12/01/2024 12:49 AM CATERING ADMINISTRATIVE ASSISTANT Prudencio Huang MD LAB BLOOD ORDERABLES Final Result Performing Organization Address City/[facility] Co de Phone Number [facility] Department [place] [address] * (ABNORMAL) Protime-INR (12/01/2024 12:19 AM CATERING ADMINISTRATIVE ASSISTANT) PT 26.7(H) 9.7 - 13.0 sec INR 2.43(H) 0.90 - 1.20 [facility] Comment: Interpretive data Oral anticoagulant therapeutic ranges: Venous thromboembolism prophylaxis or treatment: 2.0-3.0 CARDIOLOGY Standard range: 2.0-3.0 High-intensity range: 2.5-3.5 Refer to indication-specific guidelines for appropriate target ranges for prosthetic heart valve replacement. Current interpretive data was last revised on 2019. Blood 12/01/2024 12:1 9 AM CATERING ADMINISTRATIVE ASSISTANT 12/01/2024 12:48 AM CATERING ADMINISTRATIVE ASSISTANT Veronica Anderson MD LAB BLOOD ORDERABLES F inal Result Performing Organization Address [facility] Co de Phone Number [facility] Department [place] [address] * (ABNORMAL) POCT glucose (11/30/2024 10:27 PM CATERING ADMINISTRATIVE ASSISTANT) Glucose, POC 301(H) 70 - 199 mg/dL Blood 11/30/2024 10:2 7 PM CATERING ADMINISTRATIVE ASSISTANT 11/30/2024 10:27 PM CATERING ADMINISTRATIVE ASSISTANT Nitin Crowe MD LAB POCT ORDERABLES - D EVICE Final Result [facility] [place] [address] * (ABNORMAL) POCT glucose (11/30/2024 8:31 PM CATERING ADMINISTRATIVE ASSISTANT) Glucose, POC 429(H) 70 - 199 mg/dL Blood 11/30/2024 8:31 PM CATERING ADMINISTRATIVE ASSISTANT 11/30/2024 8:31 PM CATERING ADMINISTRATIVE ASSISTANT us Nitin Crowe MD LAB POCT ORDERABLES - D EVICE Final Result [facility] Department [place] [address] * POCUS Cardiac (11/30/2024 3:16 PM CATERING ADMINISTRATIVE ASSISTANT) Anatomical Region Laterality Modality Other 11/30/2024 3:08 PM CATERING ADMINISTRATIVE ASSISTANT Narrative 12/04/2024 2:03 AM CATERING ADMINISTRATIVE ASSISTANT Performed by: Gisela Altman Cardiac: Exam type: [...] MD POCUS ORDERABLES Final Res ult * SC CRITICAL CARE ILL/INJURED PATIENT INIT 30-74 MIN (11/30/2024 2:14 PM CATERING ADMINISTRATIVE ASSISTANT) Narrative Prudencio Huang MD - 11/30/2024 2:14 PM CATERING ADMINISTRATIVE ASSISTANT Prudencio Huang MD 12/10/2024 12:47 AM Critical [...] Chest 1 Vw Portable (11/30/2024 1:56 PM CATERING ADMINISTRATIVE ASSISTANT) Anatomical Region Laterality Modality Body, Chest N/A Computed Radiogr aphy 11/30/2024 1:58 PM CATERING ADMINISTRATIVE ASSISTANT Impressions 11/30/2024 8:14 PM CATERING ADMINISTRATIVE ASSISTANT Comparison is made to chest radiograph 11/05/2023. No pulmonary consolidation. Possible trace left pleural effusion. No right pleural effusion. No pneumothorax. The cardiomediastinal silhouette is normal. Dictated by: Bayron Escobedo MD The radiology attending physician has personally reviewed this study, and had reviewed and/or edited this written report and agrees with it. Electronically signed by: Car Medel M.D. Narrative 11/30/2024 8:14 PM CATERING ADMINISTRATIVE ASSISTANT EXAMINATION: 1 view chest radiograph Procedure Note [...] Respiratory pathogen panel Nasopharyngeal (11/30/2024 1:45 PM CATERING ADMINISTRATIVE ASSISTANT) Pathologist [facility] Influenza A/2009 RNA Detected(A) Not Detected Influenza B RNA Not Detected Not Detected [facility] RSV RNA Not Detected Not Detected [facility] COVID-19 RNA Not Detected Not Detected [facility] Coronavirus 229E RNA Not Detected Not Detected [facility] Coronavirus HKU1 RNA Not Detected Not Detected [facility] Coronavirus NL63 RNA Not Detected Not Detected [facility] Coronavirus OC43 RNA Not Detected Not Detected [facility] Adenovirus DNA Not Detected Not Detected [facility] Metapneumovirus RNA Not Detected Not Detected [facility] Rhinovirus/Enterov irus RNA Not Detected Not Detected [facility] Parainfluenza 1 RNA Not Detected Not Detected [facility] Parainfluenza 2 RNA Not Detected Not Detected [facility] Parainfluenza 3 RNA Not Detected Not Detected [facility] Parainfluenza 4 RNA Not Detected Not Detected [facility] B. pertussis DNA Not Detected Not Detected [facility] B. parapertussis DNA Not Detected Not Detected [facility] C. pneumoniae DNA Not Detected Not Detected [facility] M. pneumoniae DNA Not Detected Not Detected [facility] Nasopharyngeal 11/30/2024 1: 45 PM CATERING ADMINISTRATIVE ASSISTANT 11/30/2024 1:55 PM CATERING ADMINISTRATIVE ASSISTANT Narrative [facility] - 11/30/2024 2:50 PM CATERING ADMINISTRATIVE ASSISTANT Is the Patient experiencing symptoms consistent with COVID?->Yes Surveillance testing for transplant patient?->No Interpretive Data The SIPX FilmArray Respiratory Panel (RP2.1) assay is a [...] assay has FDA clearance for testing of PERIANESTHESIA RN swabs. The performance of additional specimen types has been assessed by the performing laboratory. The performance characteristics of this assay have been determined by [facility]. Current interpretive data was last revised on 22. Gisela Altman MD LAB MICROBIOLOGY - GENERAL ORDERABLES Final Result Performing Organization Address City/[facility] Co de Phone Number [facility] Department [place] [address] * Troponin I high-sensitivity series (baseline, 2hr, 4hr, 6hr) (11/30/2024 1:44 PM CATERING ADMINISTRATIVE ASSISTANT) Trop I hs 13 <=17 ng/L Comment: Interpretive Data For further hscTnI resources including the diagnostic algorithm and an aid in interpretation, copy and paste this link: https://bjhlab.testcatalog.org/show/hsTrop-1 Current Interpretive Data last revised 2020. Blood 11/30/2024 1:44 PM CATERING ADMINISTRATIVE ASSISTANT 11/30/2024 2:04 PM CATERING ADMINISTRATIVE ASSISTANT Prudencio Huang MD LAB BLOOD ORDERABLES Final Result Performing Organization Address [facility] Co de Phone Number [facility] Department [place] [address] * (ABNORMAL) eGFR (11/30/2024 1:44 PM CATERING ADMINISTRATIVE ASSISTANT) [facility] Signature eGFR 47(L) >=60 mL/min/1. 73 m2 Comment: [...] last reviewed 2021. Blood 11/30/2024 1:44 PM CATERING ADMINISTRATIVE ASSISTANT 11/30/2024 2:04 PM CATERING ADMINISTRATIVE ASSISTANT Prudencio Huang MD LAB BLOOD ORDERABLES Final Result [facility] Department [place] [address] * Differential, auto (11/30/2024 1:44 PM CATERING ADMINISTRATIVE ASSISTANT) Neutrophil abs 6.2 1.5 - 6.5 K/cumm Imm gran abs 0.1 0.0 - 0.1 K/cumm [facility] Lymphocyte abs 0.8 0.8 - 3.3 K/cumm [facility] Monocyte abs 0.7 0.2 - 0.8 K/cumm [facility] Eosinophil abs 0.2 0.0 - 0.5 K/cumm [facility] Basophil abs 0.1 0.0 - 0.1 K/cumm [facility] Neutrophil pct 77.6 % [facility] Comment: Interpretive Data Percent cell count reference ranges are not reported, since discordance with absolute values may lead to misinterpretation of CBC data. Current Interpretive Data was last revised on 2018. Imm gran pct 0.6 % [facility] Comment: Interpretive Data Percent cell count reference ranges are not reported, since discordance with absolute values may lead to misinterpretation of CBC data. Current Interpretive Data was last revised on 2018. Lymphocyte pct 9.9 % [facility] Comment: Interpretive Data Percent cell count reference ranges are not reported, since discordance with absolute values may lead to misinterpretation of CBC data. Current Interpretive Data was last revised on 2018. Monocyte pct 8.9 % [facility] Comment: Interpretive Data Percent cell count reference ranges are not reported, since discordance with absolute values may lead to misinterpretation of CBC data. Current Interpretive Data was last revised on 2018. Eosinophil pct 2.4 % [facility] Comment: Interpretive Data Percent cell count reference ranges are not reported, since discordance with absolute values may lead to misinterpretation of CBC data. Current Interpretive Data was last revised on 2018. Basophil pct 0.6 % [facility] Comment: Interpretive Data Percent cell count reference ranges are not reported, since discordance with absolute values may lead to misinterpretation of CBC data. Current Interpretive Data was last revised on 2018. Blood 11/30/2024 1:44 PM CATERING ADMINISTRATIVE ASSISTANT 11/30/2024 2:04 PM CATERING ADMINISTRATIVE ASSISTANT us Prudencio Huang MD LAB BLOOD ORDERABLES Final Result [facility] Department [place] [address] * (ABNORMAL) Pro B-type natriuretic peptide (11/30/2024 1:44 PM CATERING ADMINISTRATIVE ASSISTANT) NT-proBNP 1,353(H) <=450 pg/mL Comment: Interpretive Comments: [...] Revised Date: 2018. Blood 11/30/2024 1:44 PM CATERING ADMINISTRATIVE ASSISTANT 11/30/2024 2:04 PM CATERING ADMINISTRATIVE ASSISTANT Prudencio Huang MD LAB BLOOD ORDERABLES Final Result [facility] Department [place] [address] * (ABNORMAL) CBC with auto differential (11/30/2024 1:44 PM CATERING ADMINISTRATIVE ASSISTANT) Pathologist [facility] WBC 8.0 3.8 - 9.9 K/cumm Hgb 11.0(L) 11.9 - 15.5 g/dL [facility] Hct 33.9(L) 35.6 - 45.5 % [facility] Plt 448(H) 150 - 400 K/cumm [facility] MPV 9.5 9.1 - 12.3 fL [facility] RBC 4.08 3.90 - 5.20 M/cumm [facility] MCV 83.1 81.3 - 96.4 fL [facility] MCH 27.0(L) 27.1 - 33.3 pg [facility] MCHC 32.4 32.3 - 35.7 g/dL [facility] RDW CV 15.5(H) 11.1 - 14.9 % [facility] RDW SD 46.8 35.7 - 48.1 fL [facility] NRBC abs 0.00 0.00 - 0.01 K/cumm [facility] Blood 11/30/2024 1:44 PM CATERING ADMINISTRATIVE ASSISTANT 11/30/2024 2:04 PM CATERING ADMINISTRATIVE ASSISTANT Prudencio Huang MD LAB BLOOD ORDERABLES Final Result Performing Organization Address City/[facility]/ZIP Co de Phone Number [facility] Department [place] [address] * Lipid panel (11/30/2024 1:44 PM CATERING ADMINISTRATIVE ASSISTANT) Cholesterol 158 30 - 199 mg/dL Comment: [...] revised on 2018. Triglycerides 124 <=149 mg/dL [facility] Comment: Interpretive Data Ages < or = [...] revised on 2018. HDL 52 >=40 mg/dL [facility] Comment: Interpretive Data Ages < [...] 2018. LDL, calculated 84 <=129 mg/dL [facility] Comment: Interpretive Data Ages < or = [...] 3. Hay Deras et al. ACOSTA Cardiol. 2020 January 29;5(5):540-548. doi: [email or web address] Current Interpretive Data was last revised on 2024. Non-HDL Cholesterol 106 mg/dL [facility] Comment: Interpretive Data Ages < [...] last revised on 2018. Chol/HDL ratio 3 [facility] Blood 11/30/2024 1:44 PM CATERING ADMINISTRATIVE ASSISTANT 11/30/2024 2:04 PM CATERING ADMINISTRATIVE ASSISTANT us Nitin Crowe MD LAB BLOOD ORDERABLES Fi nal Result [facility] [place] [address] * (ABNORMAL) Comprehensive metabolic panel (11/30/2024 1:44 PM CATERING ADMINISTRATIVE ASSISTANT) Sodium 137 135 - 145 mmol/L Potassium, pl 3.8 3.3 - 4.9 mmol/L [facility] Chloride 99 97 - 110 mmol/L [facility] CO2 26 22 - 32 mmol/L [facility] Anion gap 12 2 - 15 mmol/L [facility] BUN 14 6 - 25 mg/dL [facility] Creatinine 1.20(H) 0.60 - 1.10 mg/dL [facility] Glucose 118 70 - 199 mg/dL [facility] Comment: Interpretive Data Fasting glucose [...] 2022. Calcium 9.5 8.5 - 10.3 mg/dL [facility] Bilirubin, total 0.2 0.1 - 1.2 mg/dL [facility] Protein, pl 7.1 6.5 - 8.5 g/dL [facility] Albumin 4.1 3.5 - 5.0 g/dL [facility] Alk phos 67 40 - 130 Units/L [facility] ALT 21 7 - 45 Units/L [facility] AST 32 10 - 45 Units/L [facility] Blood 11/30/2024 1:44 PM CATERING ADMINISTRATIVE ASSISTANT 11/30/2024 2:04 PM CATERING ADMINISTRATIVE ASSISTANT us Prudencio Huang MD LAB BLOOD ORDERABLES Final Result [facility] [place] [address] * POCT glucose (11/30/2024 1:43 PM CATERING ADMINISTRATIVE ASSISTANT) Glucose, POC 126 70 - 199 mg/dL Blood 11/30/2024 1:43 PM CATERING ADMINISTRATIVE ASSISTANT 11/30/2024 1:43 PM CATERING ADMINISTRATIVE ASSISTANT Prudencio Huang MD LAB POCT ORDERABLES - VIDAL CE Final Result [facility] Department [place] [address] * (ABNORMAL) ECG 12-LEAD (11/30/2024 1:37 PM CATERING ADMINISTRATIVE ASSISTANT) Narrative [facility] - 11/30/2024 1:37 PM CATERING ADMINISTRATIVE ASSISTANT Prudencio Huang MD 11/30/2024 1:37 PM ECG [...] the ED Prudencio Huang MD 11/30/24 1337 us Prudencio Huang MD ECG ORDERABLES Final Resu lt [facility] * (ABNORMAL) Hemoglobin A1c (10/13/2019 2:41 AM CATERING ADMINISTRATIVE ASSISTANT) Hgb A1C 6.5(H) 4.0 - 5.6 % [facility] Estimated Average Glucose 140 mg/dL [facility] Comment: The ADA recommends reporting an estimated Average Glucose (eAG) with all Hemoglobin A1c results using the equation derived from a study of 507 normal and diabetic adults. Minority populations were underrepresented and children were not included. (Diabetes Care 31:5756-7581, 2008). The eAG is not equivalent to a fasting glucose. Blood specimen (specimen) 10/13/2019 2:41 AM CATERING ADMINISTRATIVE ASSISTANT 10/13/2019 2:46 AM CATERING ADMINISTRATIVE ASSISTANT us Jasmyn Marion MD LAB BLOOD ORDERABLES Final Resul t Performing Organization Address City/[facility] Co de Phone Number [address] Department [place] [address] * Screening Mammogram Bilateral W Yohannes (01/21/2019 [...] compared to prior imaging studies performed at [facility] on 02/04/2014, 02/09/2015 and 02/19/2016. MAMMOGRAM FINDINGS: [...] compared to prior imaging studies performed at [facility] on 02/04/2014, 02/09/2015 and 02/19/2016. MAMMOGRAM FINDINGS: [...] year is recommended. BI-RADS Category 1: [facility] Final Result * BONE DENSITY, [...] N/A Requesting: DANIEL THOMAS Requesting Requesting ID: [id number] Attending Attending ID: Completed Time: 02/04/2014 09:35 [...] N/A Requesting: DANIEL THOMAS Requesting Requesting ID: [id number] Attending Attending ID: Completed Time: 02/04/2014 09:35 [...] Most Recently Relevant to Health Maintenance Insurance [facility] MEDICARE [place] [id number] [facility] MEDIC[facility] ADVANTAGE [facility] MEDIC[facility] ADVANTAGE Advance Directives For more information, please contact: [phone] * Full Code (Latest Code Status on File) Date Activated Date Inactivated Comments 11/30/2024 7:10 PM 12/02/2024 6:20 PM * Full Code Date Activated Date Inactivated Comments 10/12/2019 12:20 PM 10/13/2019 8:26 PM 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
--- OUTSIDE RECORDS SUMMARY | 2025-01-15 15:57 | XMS_ITS | Data Portability ---
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 She is to complete the course of Azithromycin, Tamiflu and start mercedes Prednisone taper, reduced dose of Fenofibrate and continue her Diltiazem oajao Not available 12/03/2024 13:45:58 Plan of Treatment Reminders Order Date Submit Date Provider Last Modified By Organization Details Last Modified Time Details Appointments ANY 30 2024 03:00P Braeden Rae MD Not available Not available Not available ANY 15 2024 02:30P Braeden Rae MD Not available Not available Not available Lab basic metabolic 1998 panel, serum or plasma 2024 025 [place] [facility], [address], [place], [address], 11/25/2024 11:13:32 CBC 2024 025 [place] [facility], [address], [place], [address], 11/25/2024 11:13:35 HbA1c (hemoglob in A1c), blood 2024 025 [place] [facility], [address], [place], [address], 11/25/2024 11:13:34 lipid panel, serum 2024 025 [facility], [address], [place], [address], 11/25/2024 11:13:31 microalbu min/creat inine, mass ratio, urine 2024 025 [place] [facility], [address], [place], [address], 11/25/2024 11:13:30 HbA1c (hemoglob in A1c), blood 2023 024 [facility] [facility], [address], [place], [address], 06/10/2024 08:23:01 lipid panel, serum 2023 024 [place] [facility], [address], [place], [address], 06/10/2024 08:23:00 CBC w/ auto diff 2023 024 [facility] [address], [place], [address], 11/30/2023 17:03:48 CMP, serum or plasma 2023 024 [place] [facility], [address], [place], [address], 11/30/2023 17:03:48 urinalysi s, dipstick 2023 024 [facility], [address], [place], [address], 12/10/2023 10:59:42 lipid panel, serum 2023 024 RASHMI [facility], [address], [place], [address], 11/30/2023 17:03:49 HIV 1 + 2, meaningfu l use set 2023 024 [facility], [address], [place], [address], 11/30/2023 17:03:49 Hepatitis C IgG Ab, qual, serum 2023 024 R[facility], [address], [place], [address], 11/30/2023 17:03:49 PT/INR 2023 024 [facility]ASH[facility], [address], [place], [address], 11/30/2023 17:03:49 BNP (B-type natriuret ic peptide), serum or plasma 2023 024 RASH[facility], [address], [place], [address], 11/29/2023 10:14:12 TSH, ultra-sen sitive, serum 2023 024 [facility], [address], [place], [address], 11/30/2023 17:03:50 HbA1c (hemoglob in A1c), blood 2023 024 RASH[facility], [address], [place], [address], 11/30/2023 17:03:50 microalbu min/creat inine, mass ratio, urine 2023 024 RASH[facility], [address], [place], [address], 11/30/2023 17:03:49 Referral cardiolog ist referral - CAD, S/p [place] with a stent, HTN. Chronic Warfarin 2023 024 [facility], [address], [place], [address], 12/28/2023 12:09:32 pulmonolo gist referral 2023 024 [facility], [address], [place], [address], 05/29/2024 10:15:05 diabetic ophthalmo logy referral 2023 024 RASHMI Hopkins MD, [address], [place], [address], 07/14/2024 09:08:57 Procedures None recorded. Surgeries None recorded. Imaging US, duplex, venous, lower extremity - Chronic right lower extremity swelling 2024 025 [facility] ([facility]), [address] [place] [address] [address], [place], [address], 12/31/2024 15:15:26 LDCT, chest, for lung cancer screening 2023 024 [facility] ([facility]), [address] [place], [address], 06/30/2024 18:04:20 Medication Orders Tussin DM 10 mg-100 mg/5 mL oral liquid 2024 025 [place] [id number], [address], [place], [id number], 12/03/2024 12:36:34 fenofibra te 40 mg tablet 2024 025 oajao [facility], [address], [address], [place], [address], 12/25/2024 06:41:48 Patient TargetsNo targets recorded. Patient Instructions Encounter Date Encounter Id Patient Instructions Last Modified By Organization Details Last Modified Time 11/26/2023 [id number] Quitting Tobacco : Care Instructions oajao Not available 11/26/2023 14:58:58 leg and ankle edema: care instructions oajao Not available 11/26/2023 14:51:37 type 2 diabetes: care instructions oajao Not available 11/26/2023 14:51:36 high blood pressure: care instructions oajao Not available 11/26/2023 14:51:37 learning about high blood pressure oajao Not available 11/26/2023 14:51:37 Labs Cardiology Stop smoking Records from her PCP Most recent notes from her farm crops teacher and pulmonary function technician. Bending Shed Worker Clarify with her old pharmacist if she really is supposed to be on both Amlodipine and Diltliazem Follow up in 4 weeks with all her medications oajao Not available 11/26/2023 20:02:31 04/08/2024 [id number] Quitting Tobacco : Care Instructions oajao Not available 04/08/2024 15:30:00 Peripheral Arterial Disease (PAD): Care Instructions oajao Not available 04/08/2024 15:29:05 type 2 diabetes: care instructions oajao Not available 04/08/2024 15:33:31 carotid stenosis : care instructions oajao Not available 04/08/2024 15:28:38 Labs in 06/2024 Bending Shed Worker as referred LDCT Stop smoking Immunization records from , please Follow up in 5 months and PRN oajao Not available 04/08/2024 15:40:22 10/23/2024 [id number] tetanus and diphtheria booster: care instructions oajao Not available 10/23/2024 16:19:44 learning about healthy weight oajao Not available 10/23/2024 16:09:03 Stop smoking Lab s Follow up in 5 months and PRN oajao Not available 10/23/2024 16:22:08 12/03/2024 [id number] type 2 diabetes: care instructions oajao Not available 12/03/2024 13:55:46 Please pickling drum operator t he medications you were discharged home on Tussin/DM Follow up as scheduled on 03/30/2024 and PRN Addendum US oajao Not available 12/03/2024 13:32:44 12/31/2024 [id number] deciding about using medicines to quit smoking oajao Not available 12/31/2024 15:02:45 Quitting Tobacco : Care Instructions oajao Not available 12/31/2024 15:02:45 US as previously ordered Stop smoking Follow up with all your medications in 4 weeks oajao Not available 12/31/2024 15:16:45 Reason for Referral Diabetic Ophthalmology Refer ral for Type 2 diabetes mellitus without complication Referring Physician: Payton Rae, Internal Medicine, Encounter Date: 11/26/2023 Poultry Cleaner Referral for Hi story of myocardial infarction CAD, S/p [place] with a stent, HTN. Chronic Warfarin CAD, S/p [place] with a stent, HTN. Chronic Warfarin Referring Physician: Payton Rae, Internal Medicine, Encounter Date: 11/26/2023 Bending Shed Worker Referral for A sthma-chronic obstructive pulmonary disease overlap syndrome Referring Physician: Payton Rae, Internal Medicine, Encounter Date: 11/26/2023 Results Created Date Observation Date Name Description Value Unit Range Abnormal Flag Note LastModifiedBy Organization Detail LastModifiedTime 11/28/19 24 11/29/2023 B-TYP E NATRI URETI C PEPTI DE B-type natriuretic peptide 35.4 pg/mL 0.0-10 0.0 Sieme ns [facility] Not Available [facility] ([facility]) [address] [facility], [place], [address], 11/29/2023 10:14:12 11/28/19 24 11/29/2023 ALBUM IN/CR EAT RATIO , RANDO M UR creatinine, urine 114.4 mg/dL notest ab. Not Available [facility] [address] [facility], [place], [address], 11/30/2023 17:09:44 11/28/19 24 11/29/2023 ALBUM IN/CR EAT RATIO , ANGELA Deras UR albumin, urine 75.2 ug/mL notest ab. Not Available [facility] [address] [place], [address], 11/30/2023 17:09:44 11/28/19 24 11/29/2023 ALBUM IN/CR EAT RATIO , ANGELA Deras UR alb/creat ratio 66 mg/g_ creat 0-29 above high normal Tresa l: 0 - 29 Moder ately incre ased: 30 - 300 Sever jolie incre ased: >300 Not Available [facility] [address] [place], [address], 11/30/2023 17:09:44 11/28/19 24 11/29/2023 HCV ANTIB MAURY hep C virus Ab NON REACTI VE nonrea ctive HCV antib maury alone does not diffe renti ate betwe en previ ously resol elie infec tion and activ e infec tion. Equiv ocal and React lewis HCV antib maury resul ts shoul d be follo wed up with an HCV RNA test to suppo rt the diagn osis of activ e HCV infec tion. Not Available [facility] [address] [facility], [place], [address], 11/30/2023 17:09:45 11/28/19 24 11/29/2023 LIPID PANEL cholesterol, total 173 mg/dL 100-19 9 Not Available [facility] [address] [place], [address], 11/30/2023 17:09:46 11/28/19 24 11/29/2023 LIPID PANEL triglyceride s 127 mg/dL 0-149 Not Available [facility] [address] [place], [address], 11/30/2023 17:09:46 11/28/19 24 11/29/2023 LIPID PANEL HDL cholesterol 59 mg/dL >39 Not Available [facility] [address] [place], [address], 11/30/2023 17:09:46 11/28/19 24 11/29/2023 LIPID PANEL VLDL cholesterol federico 22 mg/dL 5-40 Not Available [facility] [address] [place], [address], 11/30/2023 17:09:46 11/28/19 24 11/29/2023 LIPID PANEL LDL chol calc (nih) 92 mg/dL 0-99 Not Available [facility] [address] [place], [address], 11/30/2023 17:09:46 11/28/19 24 11/29/2023 COMP. METAB OLIC PANEL (14) glucose 118 mg/dL 70-99 above high normal Not Available [facility] [address] [place], [address], 11/30/2023 17:09:46 11/28/19 24 11/29/2023 COMP. METAB OLIC PANEL (14) BUN 24 mg/dL 8-27 Not Available [facility] [address] [place], [address], 11/30/2023 17:09:46 11/28/19 24 11/29/2023 COMP. METAB OLIC PANEL (14) creatinine 1.10 mg/dL 0.57-1 .00 above high normal Not Available [facility] [address] [place], [address], 11/30/2023 17:09:46 11/28/19 24 11/29/2023 COMP. METAB OLIC PANEL (14) eGFR 52 mL/mi n/1.7 3 >59 below low normal Not Available [facility] [address] [place], [address], 11/30/2023 17:09:46 11/28/19 24 11/29/2023 COMP. METAB OLIC PANEL (14) BUN/creatini ne ratio 22 12-28 Not Available [facility] [address] [place], [address], 11/30/2023 17:09:46 11/28/19 24 11/29/2023 COMP. METAB OLIC PANEL (14) sodium 138 mmol/ L 134-14 4 Not Available [facility] [address] [place], [address], 11/30/2023 17:09:46 11/28/19 24 11/29/2023 COMP. METAB OLIC PANEL (14) potassium 4.6 mmol/ L 3.5-5. 2 Not Available [facility] [address] [place], [address], 11/30/2023 17:09:46 11/28/19 24 11/29/2023 COMP. METAB OLIC PANEL (14) chloride 101 mmol/ L 96-106 Not Available [facility] [address] [place], [address], 11/30/2023 17:09:46 11/28/19 24 11/29/2023 COMP. METAB OLIC PANEL (14) carbon dioxide, total 22 mmol/ L 20-29 Not Available [facility] [address] [place], [address], 11/30/2023 17:09:46 11/28/19 24 11/29/2023 COMP. METAB OLIC PANEL (14) calcium 10.3 mg/dL 8.7-10 .3 Not Available [facility] [address] [place], [address], 11/30/2023 17:09:46 11/28/19 24 11/29/2023 COMP. METAB OLIC PANEL (14) protein, total 6.6 g/dL 6.0-8. 5 Not Available [facility] [address] [place], [address], 11/30/2023 17:09:46 11/28/19 24 11/29/2023 COMP. METAB OLIC PANEL (14) albumin 4.3 g/dL 3.8-4. 8 Not Available [facility] [address] [place], [address], 11/30/2023 17:09:46 11/28/19 24 11/29/2023 COMP. METAB OLIC PANEL (14) globulin, total 2.3 g/dL 1.5-4. 5 Not Available [facility] [address] [place], [address], 11/30/2023 17:09:46 11/28/19 24 11/29/2023 COMP. METAB OLIC PANEL (14) A/G ratio 1.9 1.2-2. 2 Not Available [facility] [address] [place], [address], 11/30/2023 17:09:46 11/28/19 24 11/29/2023 COMP. METAB OLIC PANEL (14) bilirubin, total 0.3 mg/dL 0.0-1. 2 Not Available [facility] [address] [place], [address], 11/30/2023 17:09:46 11/28/19 24 11/29/2023 COMP. METAB OLIC PANEL (14) alkaline phosphatase 57 IU/L 44-121 Not Available [facility] [address] [place], [address], 11/30/2023 17:09:46 11/28/19 24 11/29/2023 COMP. METAB OLIC PANEL (14) AST (SGOT) 31 IU/L 0-40 Not Available [facility] [address] [place], [address], 11/30/2023 17:09:46 11/28/19 24 11/29/2023 COMP. METAB OLIC PANEL (14) ALT (SGPT) 29 IU/L 0-32 Not Available [facility] [address] [place], [address], 11/30/2023 17:09:46 11/28/19 24 11/30/2023 PROTH ROMBI N TIME, INR prothrombin time 13.0 sec above high normal Refer ence Range : 18 years and older : 9.1 - 12.0 Not Available [facility] [address] [place], [address], 11/30/2023 17:09:47 11/28/19 24 11/30/2023 PROTH ROMBI N TIME, INR INR 1.2 ratio Refer ence Range : >1 month : 0.9 - 1.2 Not Available [facility] [address] [place], [address], 11/30/2023 17:09:47 11/28/19 24 11/29/2023 HEMOG LOBIN A1C hemoglobin A1C 6.7 % 4.8-5. 6 above high normal Predi abete s: 5.7 - 6.4 Diabe ryan: >6.4 Glyce jaylin contr ol for adult s with diabe ryan: <7.0 Not Available [facility] [address] [place], [address], 11/30/2023 17:09:47 11/28/19 24 11/29/2023 TSH TSH 2.250 uIU/m L 0.450- 4.500 Not Available [facility] [address] [place], [address], 11/30/2023 17:09:48 11/28/19 24 11/28/2023 CBC WITH DIFFE RENTI AL/PL ATELE T WBC 8.8 x10e3 /uL 3.4-10 .8 Not Available [facility] [address] [place], [address], 11/30/2023 17:09:49 11/28/19 24 11/28/2023 CBC WITH DIFFE RENTI AL/PL ATELE T RBC 3.96 x10e6 /uL 3.77-5 .28 Not Available [facility] [address] [place], [address], 11/30/2023 17:09:49 11/28/19 24 11/28/2023 CBC WITH DIFFE RENTI AL/PL ATELE T hemoglobin 11.4 g/dL 11.1-1 5.9 Not Available [facility] [address] [place], [address], 11/30/2023 17:09:49 11/28/19 24 11/28/2023 CBC WITH DIFFE RENTI AL/PL ATELE T hematocrit 34.1 % 34.0-4 6.6 Not Available [facility] [address] [place], [address], 11/30/2023 17:09:49 11/28/19 24 11/28/2023 CBC WITH DIFFE RENTI AL/PL ATELE T MCV 86 fL 79-97 Not Available [facility] [address] [place], [address], 11/30/2023 17:09:49 11/28/19 24 11/28/2023 CBC WITH DIFFE RENTI AL/PL ATELE T MCH 28.8 pg 26.6-3 3.0 Not Available [facility] [address] [place], [address], 11/30/2023 17:09:49 11/28/19 24 11/28/2023 CBC WITH DIFFE RENTI AL/PL ATELE T MCHC 33.4 g/dL 31.5-3 5.7 Not Available [facility] [address] [place], [address], 11/30/2023 17:09:49 11/28/19 24 11/28/2023 CBC WITH DIFFE RENTI AL/PL ATELE T RDW 13.8 % 11.7-1 5.4 Not Available [facility] [address] [place], [address], 11/30/2023 17:09:49 11/28/19 24 11/28/2023 CBC WITH DIFFE RENTI AL/PL ATELE T platelets 591 x10e3 /uL 150-45 0 above high normal Not Available [facility] [address] [place], [address], 11/30/2023 17:09:49 11/28/19 24 11/28/2023 CBC WITH DIFFE RENTI AL/PL ATELE T neutrophils 63 % notest ab. Not Available [facility] [address] [place], [address], 11/30/2023 17:09:49 11/28/19 24 11/28/2023 CBC WITH DIFFE RENTI AL/PL ATELE T lymphs 21 % notest ab. Not Available [facility] [address] [place], [address], 11/30/2023 17:09:49 11/28/19 24 11/28/2023 CBC WITH DIFFE RENTI AL/PL ATELE T monocytes 8 % notest ab. Not Available [facility] [address] [place], [address], 11/30/2023 17:09:49 11/28/19 24 11/28/2023 CBC WITH DIFFE RENTI AL/PL ATELE T eos 6 % notest ab. Not Available [facility] [address] [place], [address], 11/30/2023 17:09:49 11/28/19 24 11/28/2023 CBC WITH DIFFE RENTI AL/PL ATELE T basos 1 % notest ab. Not Available [facility] [address] [place], [address], 11/30/2023 17:09:49 11/28/19 24 11/28/2023 CBC WITH DIFFE RENTI AL/PL ATELE T neutrophils (absolute) 5.7 x10e3 /uL 1.4-7. 0 Not Available [facility] [address] [place], [address], 11/30/2023 17:09:49 11/28/19 24 11/28/2023 CBC WITH DIFFE RENTI AL/PL ATELE T lymphs (absolute) 1.8 x10e3 /uL 0.7-3. 1 Not Available [facility] [address] [place], [address], 11/30/2023 17:09:49 11/28/19 24 11/28/2023 CBC WITH DIFFE RENTI AL/PL ATELE T monocytes(ab solute) 0.7 x10e3 /uL 0.1-0. 9 Not Available [facility] [address] [place], [address], 11/30/2023 17:09:49 11/28/19 24 11/28/2023 CBC WITH DIFFE RENTI AL/PL ATELE T eos (absolute) 0.5 x10e3 /uL 0.0-0. 4 above high normal Not Available [facility] [address] [place], [address], 11/30/2023 17:09:49 11/28/19 24 11/28/2023 CBC WITH DIFFE RENTI AL/PL ATELE T baso (absolute) 0.1 x10e3 /uL 0.0-0. 2 Not Available [facility] [address] [place], [address], 11/30/2023 17:09:49 11/28/19 24 11/28/2023 CBC WITH DIFFE RENTI AL/PL ATELE T immature granulocytes 1 % notest ab. Not Available [facility] [address] [facility], [place], [address], 11/30/2023 17:09:49 11/28/19 24 11/28/2023 CBC WITH DIFFE RENTI AL/PL ATELE T immature grans (abs) 0.0 x10e3 /uL 0.0-0. 1 Not Available [facility] [address] [facility], [place], [address], 11/30/2023 17:09:49 11/28/19 24 11/29/2023 HIV AB/P2 4 AG WITH REFLE X HIV Ab/P24 Ag screen NON REACTI VE nonrea ctive HIV Negat lewis HIV-1 /HIV- 2 antib odies and HIV-1 p24 antig en were NOT detec raji. There is no labor atory evide nce of HIV infec tion. Not Available [facility] [address] [facility], [place], [address], 11/30/2023 17:09:49 06/09/2006/10/2024 LIPID PANEL cholesterol, total 154 mg/dL 100-19 9 Not Available [facility] ([facility]) [address] [facility], [place], [address], 06/10/2024 08:23:00 06/09/20 24 06/10/2024 LIPID PANEL triglyceride s 115 mg/dL 0-149 Not Available [facility] ([facility]) [address] [facility], [place], [address], 06/10/2024 08:23:00 06/09/20 24 06/10/2024 LIPID PANEL HDL cholesterol 52 mg/dL >39 Not Available [facility]) [address] [place], [address], 06/10/2024 08:23:00 06/09/20 24 06/10/2024 LIPID PANEL VLDL cholesterol federico 21 mg/dL 5-40 Not Available [facility] ([facility]) [address] [place], [address], 06/10/2024 08:23:00 06/09/2006/10/2024 LIPID PANEL LDL chol calc ([facility]) 81 mg/dL 0-99 Not Available [facility] ([facility]) [address] [facility], [place], [address], 06/10/2024 08:23:00 06/09/20 24 06/10/2024 HEMOG LOBIN A1C hemoglobin A1C 7.0 % 4.8-5. 6 above high normal Predi abete s: 5.7 - 6.4 Diabe ryan: >6.4 Glyce jaylin contr ol for adult s with diabe ryan: <7.0 Not Available [facility] ([facility]) [address] [facility], [place], [address], 06/10/2024 08:23:01 06/09/2006/13/2024 PROTH ROMBI N TIME, INR prothrombin time 31.4 sec above high normal Refer ence Range : 18 years and older : 9.1 - 12.0 Not Available [facility] [address] [place], [address], 06/13/2024 11:15:24 06/09/2006/13/2024 PROTH ROMBI N TIME, INR INR 3.2 ratio above high normal Refer ence Range : >1 month : 0.9 - 1.2 Not Available [facility] [address] [place], [address], 06/13/2024 11:15:24 11/24/19 25 11/25/2024 ALBUM IN/CR EAT RATIO , RANDO M UR creatinine, urine 73.3 mg/dL notest ab. Not Available [facility] ([facility]) [address] [place], [address], 11/25/2024 11:13:30 11/24/19 25 11/25/2024 ALBUM IN/CR EAT RATIO , ANGELA Deras UR albumin, urine 152.7 ug/mL notest ab. Not Available [facility] ([facility]) [address] [place], [address], 11/25/2024 11:13:30 11/24/19 25 11/25/2024 ALBUM IN/CR EAT RATIO , ANGELA Deras UR alb/creat ratio 208 mg/g_ creat 0-29 above high normal Tresa l: 0 - 29 Moder ately incre ased: 30 - 300 Sever jolie incre ased: >300 Not Available [facility] ([facility]) [address] [place], [address], 11/25/2024 11:13:30 11/24/19 25 11/25/2024 LIPID PANEL cholesterol, total 171 mg/dL 100-19 9 Not Available [facility] ([facility]) [address] [place], [address], 11/25/2024 11:13:31 11/24/19 25 11/25/2024 LIPID PANEL triglyceride s 138 mg/dL 0-149 Not Available [facility] ([facility]) [address] [place], [address], 11/25/2024 11:13:31 11/24/19 25 11/25/2024 LIPID PANEL HDL cholesterol 53 mg/dL >39 Not Available [facility]) [address] [place], [address], 11/25/2024 11:13:31 11/24/19 25 11/25/2024 LIPID PANEL VLDL cholesterol federico 24 mg/dL 5-40 Not Available [facility] ([facility]) [address] [place], [address], 11/25/2024 11:13:31 11/24/19 25 11/25/2024 LIPID PANEL LDL chol calc ([facility]) 94 mg/dL 0-99 Not Available [facility] ([facility]) [address] [place], [address], 11/25/2024 11:13:31 11/24/19 25 11/25/2024 BASIC METAB OLIC PANEL (7) glucose 131 mg/dL 70-99 above high normal Not Available [facility] ([facility]) [address] [place], [address], 11/25/2024 11:13:32 11/24/1911/25/2024 BASIC METAB OLIC PANEL (7) BUN 16 mg/dL 8-27 Not Available [facility] ([facility]) [address] [place], [address], 11/25/2024 11:13:32 11/24/1911/25/2024 BASIC METAB OLIC PANEL (7) creatinine 1.14 mg/dL 0.57-1 .00 above high normal Not Available [facility] ([facility]) [address] [place], [address], 11/25/2024 11:13:32 11/24/19 25 11/25/2024 BASIC METAB OLIC PANEL (7) eGFR 50 mL/mi n/1.7 3 >59 below low normal Not Available [facility] ([facility]) [address] [place], [address], 11/25/2024 11:13:32 11/24/19 25 11/25/2024 BASIC METAB OLIC PANEL (7) BUN/creatini ne ratio 14 12-28 Not Available [facility] ([facility]) [address] [place], [address], 11/25/2024 11:13:32 11/24/19 25 11/25/2024 BASIC METAB OLIC PANEL (7) sodium 138 mmol/ L 134-14 4 Not Available [facility] ([facility]) [address] [facility], [place], [address], 11/25/2024 11:13:32 11/24/1911/25/2024 BASIC METAB OLIC PANEL (7) potassium 4.7 mmol/ L 3.5-5. 2 Not Available [facility] ([facility]) [address] [facility], [place], [address], 11/25/2024 11:13:32 11/24/1911/25/2024 BASIC METAB OLIC PANEL (7) chloride 100 mmol/ L 96-106 Not Available [facility] ([facility]) [address] [place], [address], 11/25/2024 11:13:32 11/24/1911/25/2024 BASIC METAB OLIC PANEL (7) carbon dioxide, total 24 mmol/ L 20-29 Not Available [facility] ([facility]) [address] [place], [address], 11/25/2024 11:13:32 11/24/1911/25/2024 HEMOG LOBIN A1C hemoglobin A1C 7.2 % 4.8-5. 6 above high normal Predi abete s: 5.7 - 6.4 Diabe ryan: >6.4 Glyce jaylin contr ol for adult s with diabe ryan: <7.0 Not Available [facility] ([facility]) [address] [place], [address], 11/25/2024 11:13:34 11/24/19 25 11/24/2024 CBC, PLATE LET, NO DIFFE RENTI AL WBC 9.1 x10e3 /uL 3.4-10 .8 Not Available [facility] ([facility]) [address] [facility], [place], [address], 11/25/2024 11:13:35 11/24/19 25 11/24/2024 CBC, PLATE LET, NO DIFFE RENTI AL RBC 4.28 x10e6 /uL 3.77-5 .28 Not Available [facility] ([facility]) [address] [facility], [place], [address], 11/25/2024 11:13:35 11/24/19 25 11/24/2024 CBC, PLATE LET, NO DIFFE RENTI AL hemoglobin 11.4 g/dL 11.1-1 5.9 Not Available [facility] ([facility]) [address] [facility], [place], [address], 11/25/2024 11:13:35 11/24/19 25 11/24/2024 CBC, PLATE LET, NO DIFFE RENTI AL hematocrit 36.4 % 34.0-4 6.6 Not Available [facility] ([facility]) [address] [facility], [place], [address], 11/25/2024 11:13:35 11/24/1911/24/2024 CBC, PLATE LET, NO DIFFE RENTI AL MCV 85 fL 79-97 Not Available [facility] ([facility]) [address] [facility], [place], [address], 11/25/2024 11:13:35 11/24/1911/24/2024 CBC, PLATE LET, NO DIFFE RENTI AL MCH 26.6 pg 26.6-3 3.0 Not Available [facility] ([facility]) [address] [facility], [place], [address], 11/25/2024 11:13:35 11/24/1911/24/2024 CBC, PLATE LET, NO DIFFE RENTI AL MCHC 31.3 g/dL 31.5-3 5.7 below low normal Not Available [facility] ([facility]) [address] [facility], [place], [address], 11/25/2024 11:13:35 11/24/19 25 11/24/2024 CBC, PLATE LET, NO DIFFE RENTI AL RDW 15.0 % 11.7-1 5.4 Not Available [facility] ([facility]) [address] [facility], [place], [address], 11/25/2024 11:13:35 11/24/19 25 11/24/2024 CBC, PLATE LET, NO DIFFE RENTI AL platelets 597 x10e3 /uL 150-45 0 above high normal Not Available [facility] ([facility]) [address] [facility], [place], [address], 11/25/2024 11:13:35 02/14/20 24 01/25/2024 US, josseline bergeron carot id arter y No observ ation record ed. [facility] [address] , [place], [address], 04/08/2024 15:26:23 02/14/20 24 01/25/2024 arter ial study , lower extre mity, compl ete No observ ation record ed. [facility] [address] , [place], [address], 04/08/2024 15:26:23 04/22/20 24 04/22/2024 US, josseline bergeron venou s, lower extre mity No observ ation record ed. [facility] [address] [facility], [place], [address], 12/03/2024 13:31:21 06/30/20 24 06/30/2024 LDCT, chest , for lung cance r scree chiquita No observ ation record ed. [facility] [address] [place], [address], 10/23/2024 16:07:35 Result Notes None recorded. Problems Name Problem SNOMED Code Status Onset Date Resolution Date Notes Provider Name and Address Organization Details Recorded Time Type 2 diabetes mellitus without complicatio n 740616473 Active 2023 Payton Rae MD Attn: Ranjit g,[address] [facility], [place], [address], [place] [facility] 5 16:06:55 History of myocardial infarction 519159900 Active 2023 Payton Rae MD Attn: Ranjit christy,[address] [facility], [place], [address], [place] [facility] 4 14:25:18 Disorder of lipid metabolism 241173284 Active 2023 Payton Rae MD Attn: Ranjit christy,[address] [facility], [place], [address], [place] [facility] 4 14:25:34 Benign essential hypertensio n 7325344 Active 2023 Payton Rae MD Attn: Ranjit christy,[address] [place], [address], [place] [facility] 4 14:25:35 Nicotine dependence 29338098 Active 2023 Payton Rae MD Attn: Ranjit christy,[address] [facility], [place], [address], [place] [facility] 4 14:56:49 Warfarin monitoring status 849998791 Active 2023 Payton Rae MD Attn: Ranjit christy,[address] [facility], [place], [address], [place] [facility] 4 15:19:38 Carotid artery stenosis 02949694 Active 2023 Payton Rae MD Attn: Ranjit christy,[address] [facility], [place], [address], [place] [facility] 4 15:26:35 History of nicotine dependence Active 2024 Payton Rae MD Attn: Ranjit christy,[address] [place], [address], [place] [facility] 5 16:16:47 Nicotine replacement therapy declined 629571272 Active 2024 Payton Rae MD Attn: Ranjit christy,[address], [place], [address], [place] [facility] 5 18:07:52 Pneumococca l vaccination declined 710027487 Active 2024 Payton Rae MD Attn: Ranjit christy,[address] [address], [place], [address], [place] [facility] 18:07:55 CT of chest abnormal 5775663351763 9102 Active 2024 Patyon Rae MD Attn: Ranjit christy,[address] [facility], [place], [address], [place] [facility] 18:11:31 Renal insufficien cy 973113303 Active 2024 Payton Rae MD Attn: Ranjit christy,[address] [facility], [place], [address], [place] [facility] 12:17:02 Chronic kidney disease 127959523 Active 2024 Payton Rae MD Attn: Ranjit christy,[address] [facility], [place], [address], [place] [facility] 13:56:03 Problem Notes None recorded. Procedures Surgical History Date Name Laterality Status Provider Name and Address Organization Details Recorded Time 5 Diabetic Foot Exam completed Payton Rae MD Attn: Accounting,[address] [facility], [place], [address], [place] [facility] 10/23/2024 18:02:13 4 Angioplasty With Stent completed Payton Rae MD Attn: Accounting,[address] [facility], [place], [address], [place] [facility] 11/26/2023 14:38:34 Imaging Results Imaging Date Name Status LastModified by [facility] Details LastModified Time 01/25/2024 US, duplex, carotid artery completed [facility] [address], [place], [address], 04/08/2024 15:26:23 01/25/2024 arterial study, lower extremity, complete completed [facility] [address], [place], [address], 04/08/2024 15:26:23 04/22/2024 US, duplex, venous, lower extremity completed [facility] [address], [place], [address], 12/03/2024 13:31:21 06/30/2024 LDCT, chest, for lung cancer screening completed [facility] [address] [place], [address], 10/23/2024 16:07:35 Procedure Notes None recorded. Medical Equipment None Reported. Allergies Allergen ID Allergen Name Allergen Category Reaction Reaction Severity Criticality Documentation Date Start Date Code Code System Note Provider Name and Address Organization Details Recorded Time 274423 Substance with sulfonami de structure and antibacte rial mechanism of action (substanc e) medicatio n other mild low 11/26/2023 38515 8003 SNOMED Pass out Not Available Not Available Not Available 631379 codeine medicatio n vomiting mild low 11/26/2023 2670 RxNorm Not Available Not Available Not Available Medications Name Sig Start Date Stop Date Status Note LastModified by Organization Details LastModified Time OneTouch Ultra Blue Test Strips Once a day testing 2023 active Not Available Not Available Not Avai lable doxycycli ne hyclate 100 mg capsule TAKE 1 CAPSULE BY MOUTH TWICE DAILY FOR 7 DAYS 11/26 completed Not Available Not Available Not Available azithromy antoni 250 mg tablet TAKE 1 TABLET BY MOUTH ONCE DAILY 04/08 completed Not Available Not Available Not Available pravastat in 40 mg tablet Take 1 tablet every day by oral route. active Not Available Not Available No t Available Accu-Chek Softclix Lancets active Not Available Not Available Not Available diltiazem CD 360 mg capsule,e xtended release 24 hr TAKE 1 CAPSULE BY MOUTH DAILY active Not Available Not Available No t Available warfarin 3 mg tablet active Not Available Not Available Not Available famotidin e 20 mg tablet Take 1 tablet twice a day by oral route as directed for 30 days, for GERD. active Not Available Not Available No t Available amlodipin e 10 mg tablet Take 1 tablet every day by oral route. 12/03 completed Not Available Not Available Not Available metformin 1,000 mg tablet Take 1 tablet twice a day by oral route as directed for 90 days, for DM. 2023 active Not Available Not Available Not Avai lable valsartan 320 mg tablet TAKE 1 TABLET BY MOUTH DAILY DIRECTED , FOR HTN 2023 active Not Available Not Available Not Avai lable Tussin DM 10 mg-100 mg/5 mL oral liquid Take 10 mL every 4 hours by oral route as needed for 4 days, for COugh. 2024 active Not Available Not Available Not Avai lable hydrochlo rothiazid e 25 mg tablet Take 2 tablets every day by oral route as directed for 30 days. active Not Available Not Available No t Available furosemid e 20 mg tablet TAKE 1 TABLET BY MOUTH DAILY active Not Available Not Available No t Available albuterol sulfate HFA 90 mcg/actua tion aerosol inhaler INHALE 1 PUFF BY MOUTH EVERY 4 HOURS NEEDED 12/03 completed Not Available Not Available Not Available cefdinir 300 mg capsule TAKE 1 CAPSULE BY MOUTH TWICE DAILY 04/08 completed Not Available Not Available Not Available ipratropi um bromide 21 mcg (0.03 %) nasal spray Holden 1 spray twice a day by intranas al route. active PRN Not Available Not Available No t Available Adult Low Dose Aspirin 81 mg tablet,de layed release Take 1 tablet every day by oral route. active Not Available Not Available No t Available potassium 20 mg chewable tablet Take by oral route. 04/08 completed Not Available Not Available Not Available diltiazem ER 360 mg tablet,ex tended release 24 hr Take 1 tablet every day by oral route. 10/23 completed Not Available Not Available Not Available fenofibra te 160 mg tablet 2024 active Decrease d to 40 mg Not Available Not Available Not Available warfarin 3 mg.4.5 mg (1.5 TAB) on M & W.3 mg (1 TAB) all the other days. active Managed by Dr Hernandez Not Available Not Available Not Available Stool Softener active Not Available Not Available Not Available fenofibra te nanocryst allized 145 mg tablet One PO daily 01/08 completed Not Available Not Available Not Available fenofibra te 40 mg tablet TAKE 1 TABLET EVERY DAY BY ORAL ROUTE DIRECTED FOR 90 DAYS, FOR LIPIDS. active Not Available Not Available No t Available Accu-Chek Valery Plus test strips USE TO TEST ONCE DAILY active Not Available Not Available No t Available potassium chloride ER 20 mEq tablet,ex tended release TAKE 1 TABLET BY MOUTH DAILY IN THE MORNING FOR LOW POTASSIU M 2024 active Not Available Not Available Not Avai lable OneTouch Delica Plus Lancet 33 gauge 1/day testing 2023 active Not Available Not Available Not Avai lable albuterol sulf 90 mcg/actua tion breath activated powder inhaler,s ensor Inhale 2 puffs every 4 hours by inhalati on route. active Not Available Not Available No t Available Breztri Aerospher e 160 mcg-9mcg- 4.8mcg/ac tuation HFA aerosol inhaler INHALE 2 PUFFS BY MOUTH TWICE DAILY active Not Available Not Available No t Available Chest Congestio n Relief DM 10 mg-100 mg/5 mL oral syrup TAKE 10 ML BY MOUTH EVERY 4 HOURS NEEDED active Not Available Not Available No t Available Vitals Date Recorded Body height Body mass index (BMI) Body weight Oxygen saturation Oxygen saturation in Arterial blood by Pulse oximetry Heart rate Body temperature Respiratory rate Systolic blood pressure Diastolic blood pressure Provider Name and Address Organization Details Last Updated DateTime 4 154.94 cm 23.8 kg/m2 44161.0 7 g 98 % 98 % 66 /min 98 [degF] 18 /min 114 mm[Hg] 60 mm[Hg] Sulma Mendoza MA [place] [facility] 4 14:18:07 Date Recorded Body height Body mass index (BMI) Body weight Oxygen saturation Oxygen saturation in Arterial blood by Pulse oximetry Heart rate Respiratory rate Systolic blood pressure Diastolic blood pressure Provider Name and Address Organization Details Last Updated DateTime 4 154.94 cm 24.1 kg/m2 28220.7 5 g 98 % 98 % 98 /min 18 /min 130 mm[Hg] 70 mm[Hg] Sulma Mendoza [place] [facility] 4 15:05:49 Date Recorded Body height Body mass index (BMI) Body weight Respiratory rate Heart rate Oxygen saturation Oxygen saturation in Arterial blood by Pulse oximetry Systolic blood pressure Diastolic blood pressure Provider Name and Address Organization Details Last Updated DateTime 5 154.94 cm 26.1 kg/m2 39778.4 7 g 16 /min 91 /min 99 % 99 % 130 mm[Hg] 76 mm[Hg] Sulma Mendoza MA [facility] 5 16:03:48 Date Recorded Body height Body mass index (BMI) Body weight Heart rate Respiratory rate Oxygen saturation Oxygen saturation in Arterial blood by Pulse oximetry Systolic blood pressure Diastolic blood pressure Provider Name and Address Organization Details Last Updated DateTime 5 154.94 cm 25.8 kg/m2 32395 g 88 /min 18 /min 95 % 95 % 130 mm[Hg] 60 mm[Hg] Sulma Mendoza MA [facility] 5 12:10:03 Date Recorded Body height Body mass index (BMI) Body weight Heart rate Oxygen saturation Oxygen saturation in Arterial blood by Pulse oximetry Systolic blood pressure Diastolic blood pressure Provider Name and Address Organization Details Last Updated DateTime 5 154.94 cm 25.6 kg/m2 18223.0 5 g 104 /min 99 % 99 % 140 mm[Hg] 76 mm[Hg] Sulma Mendoza [place] [facility] 5 14:47:56 Social History Question Answer Notes LastModified by Organizat ion Details LastModified Time Tobacco Smoking Status Current Every Day Smoker JOEL [place] - [facility] 11/26/2023 14:08:42 What Is Your Level Of Alcohol Consumption? None Information not available 11/26/2023 What Is Your Level Of Caffeine Consumption? Occasional Information not available 11/26/2023 Are You Deaf Or Do You Have Serious Difficulty Hearing? No Information not available 11/26/2023 What Was The Date Of Your Most Recent Tobacco Screening? 12/03/2024 Information not available 12/03/2024 What Is Your Current Pack Years? 30ormorepackye ars Information not available 11/26/2023 Do You Use Your Seat Belt Or Car Seat Routinely? Yes Information not available 11/26/2023 Do You Have Smoke And Carbon Monoxide Detectors In Your Home? Yes Information not available 11/26/2023 At What Age Did You Start Smoking Tobacco? 34 Information not available 11/26/2023 How Much Tobacco Do You Smoke? 1 PPD Information not available 11/26/2023 Do You Use Any Illicit Or Recreational Drugs? No Information not available 11/26/2023 Has Tobacco Cessation Counseling Been Provided? Yes Information not available 11/26/2023 On What Date Was Tobacco Cessation Counseling Provided? 12/03/2024 Information not available 12/03/2024 How Many Years Have You Smoked Tobacco? 44 Information not available 11/26/2023 Do You Or Have You Ever Used Any Other Forms Of Tobacco Or Nicotine? No Information not available 11/26/2023 Sex: Unknown Functional Status Question Answer Note LastModified by Organization D etails LastModified Time Are you able to care for yourself? Yes Information n ot available 11/26/2023 Mental Status None recorded. Family History Nothing Reported. Medical History Condition Response High Blood Pressure Y Heart Attack ([place]) Y Diabetes Y Asthma Y High Cholesterol Y Gynecological HistoryNo gynecological history recorded. Obstetrics History GPAL:G 0 P 0 0 0 0 Immunizations Vaccine Type Date Status Note Provider Nam e and Address Organization Details Recorded Time COVID-19, mRNA, LNP-S, PF, 50 mcg/0.5 mL 08/29/2024 completed Sulma Mendoza [place], [place] [facility] 10/23/2024 16:01:30 Influenza, high-dose, trivalent, PF 08/29/2024 completed Sulma Mendoza [place], [place] [facility] 10/23/2024 16:01:30 Tdap 10/23/2024 completed Payton Rae MD Attn: Accounting,[address] [place], [address], [place] [facility] 10/23/2024 18:00:54 Past Encounters Encounter ID Performer Location Encounter Start Date Encounter Closed Date Diagnosis/Indication Diagnosis SNOMED-CT Code Diagnosis ICD10 Code Diagnosis Note [id number] MD Linnette Bhandari (Adult Med) [address] [place] [phone] 11/26/2023 13:48:54 11/27/2023 08:13:20 General examination of patient 369247746 Z00.01 Type 2 maddi betes mellitus without complication 822918445 E11.9 History of myocardial infarction 123685273 I25.2 Benign ess ential hypertension 2426618 I10 Disorder o f lipid metabolism 981755383 E78.9 Edema of l ower extremity 839516401 R60.0 Meds?, she appears to be taking both Amlodipine and Diltiazem Medication monitoring 39 8843778 Z51.81 Asthma-chr onic obstructive pulmonary disease overlap syndrome 1737034693 6024647 J44.9 Nicotine dependence 5629 4008 F17.165 [id number] MD Linnette Bhandari (Adult Med) [address] [place] [address] 04/08/2024 14:47:59 04/09/2024 15:12:56 Warfarin monitoring status 878922145 Z51.81 Dr Hernandez is monitoring her Warfarin Note from 4PT /INR 13/1.2 on 11/28/2023 while on Warfarin 1.5 tablets on Sunday and Sunday and the rest of week 1 tablet. (3 mg tabs). A?P *(Should have been, A/P)She is to take a total of 6 mg today only (Two 3 mg TAB), Sunday12/04/2023.T HEN,4.5 mg or 1.5 TAB on Mondays, Wednesdays and Fridays.AN D3 mg or 1 TAB all the other days.PT/IN R in 1 weekWhen is her appointmen t with the new cardiologi st? Carotid ar barak stenosis 41767851 I65.29 Peripheral arterial occlusive disease 406336202 I73.9 Nicotine dependence 5629 4008 Z87.891 She has smoked at least 1 PPD for 44 years Type 2 maddi betes mellitus without complication 946619888 E11.9 [id number] MD Linnette Bhandari (Adult Med) [address] [place] [phone] 10/23/2024 15:31:59 10/28/2024 14:07:14 Type 2 diabetes mellitus without complication 189846103 E11.9 Body mass index 25-29 - overweight 908348133 Z68.26 History of nicotine dependence 2908864026 23515653 Z87.891 Administra tion of diphtheria, pertussis, and tetanus vaccine 080703940 Z23 Medication monitoring 39 0542940 Z51.81 Pneumococc al vaccination declined 394964812 Z28.21 Nicotine r eplacement therapy declined 016846983 Z53.20 CT of chest abnormal 427 2811682 3125047 R93.89 Discussed, she said she discussed this with her pulmonolog ist, Dr Smith [id number] MD Linnette Bhandari (Adult Med) [address] [place] [id number] 12/03/2024 11:06:26 12/04/2024 10:28:50 Follow-up visit 049777120 Z09 Renal insufficiency 7231 10369 N28.9 Influenza caused by Influenza A virus 651243754 J09.X2 Swelling of lower leg 44 0058791 R22.41 Negative US on 04/22/2024 Uncontroll ed type 2 diabetes mellitus 200047110 E11.8 Chronic ki dney disease 485359283 N18.9 Hyperlipidemia 79144799 E78.5 [id number] Payton Rae MD [facility] (Adult Med) [address] [place] [phone] 12/31/2024 14:43:12 01/01/2025 11:15:21 Follow-up visit 165029645 Z09 Tobacco de pendence syndrome 42689713 F17.200 Edema of l ower extremity 712422823 R60.0 R>L Health Concerns Section Related Observation LastModified by Organization Detai ls LastModified Time None Recorded Concern Status LastModified by Organization Details LastModified Time None Recorded Advance Directives Directive None Recorded Payers Encounter Date Sequence Insurance Name Policy Number Policy Sheikh Covered Member ID Sheikh Member ID Guarantor Name 11/26/2023 1 [facility] [id number] Karuna M Light [id number] Karuna Light 04/08/2024 1 [facility] [id number] Karuna M Light [id number] Karuna Pulido 10/23/2024 1 [facility] [id number] Karuna Deras Light [id number] Karuna Light 12/03/2024 1 [facility] [id number] Karuna Deras Light [id number] Karuna Light 12/31/2024 1 [facility] [id number] Karuna Deras Light [id number] Karuna Pulido Notes Date Note Type Note Provider Name and Address Organization Details Recorded Time 11/26/2023 text/html Diabetes F/URepo rted bypatient.Review finger sticks:fastin Context:normal range of home blood sugars (in the low 100s); seeing eye doctor regularly; checking feet regularly; taking aspirin daily; not missing doses of medications; no side effects from medications Associated Symptoms:no weight gain; no weight loss; no dizziness; no sweats; no headaches; no confusion; no increased thirst; no increased appetite; no increased urination; no blurred vision; no numbness of feet; no calluses on feet Just the swelling I had a maker I needed a primary 78 y/o WF who presents as a new patient. PMHX: Asthma/COPD, CAD, s/p [place] and stent, DM. HTN, Hypercholesterolemia , chronic Warfarin and Tobacco use. She was recently seen by her pulmonary function technician, farm crops teacher and PCP and there have been no medication changes. She has brought in her medication list which she insists is accurate, she cannot explain her LE edema as she has been fully compliant with her medications. Her list includes amlodipine and diltiazem. She uses only one pillow and denies any orthopnea, PND or salt indiscretion. Payton Rae MD Attn: Accounting[address] [place], [address], [facility] 11/26/2023 20:06:36 04/08/2024 text/html They said do it there It is just my regular check up Ms pulido was seen by the pulmonary function technician and she will continue to have her PT/INR done at their office. Payton Rae MD Attn: Accounting,[address] [place], [address], [facility] 04/08/2024 18:35:00 04/08/2024 text/html Diabetes F/URepo rted bypatient.Labs:last A1C result: 6.7 Context:taking aspirin daily; not missing doses of medications; no side effects from medications Associated Symptoms:no weight loss; no dizziness; no sweats; no headaches; no confusion; no increased thirst; no increased appetite; no increased urination; no blurred vision; no numbness of feet; no calluses on feet;weight gain (1 lbs) Payton Rae MD Attn: Accounting,[address] [place], [address], [facility] 04/08/2024 18:35:00 10/23/2024 text/html Diabetes F/URepo rted bypatient.Labs:last A1C result: 7.0% Context:normal range of home blood sugars (in the low 100s); seeing eye doctor regularly; checking feet regularly; taking aspirin daily; not missing doses of medications; no side effects from medications Associated Symptoms:no dizziness; no sweats; no headaches; no confusion; no increased thirst; no increased appetite; no increased urination; no blurred vision; no numbness of feet; no calluses on feet;weight gain (11 lbs) Just my regular check up Ms Pulido is doing well, she was seen by her farm crops teacher and her LDCT was reviewed. Payton Rae MD Attn: Accounting,[address] [place], [address], [facility] 10/23/2024 18:13:29 12/03/2024 text/html Diabetes F/URepo rted bypatient.Labs:last A1C result: 7.2% Context:normal range of home blood sugars (in the low 100s); seeing eye doctor regularly; checking feet regularly; taking aspirin daily; not missing doses of medications; no side effects from medications Associated Symptoms:no weight gain; no dizziness; no sweats; no headaches; no confusion; no increased thirst; no increased appetite; no increased urination; no blurred vision; no numbness of feet; no calluses on feet;weight loss (2 lbs) Here with her neighbor I wanted to check with you first Ms Pulido was admitted 11/30/2024-12/02/2024 with AECOPD, SVT and Influenza A. 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 She is feeling better, but she still has a cough as well as her painless and chronic RLE swelling. Payton Rae MD Attn: Accounting[address] [place], [address], [facility] 12/03/2024 13:57:59 12/31/2024 text/html COPDReported bypatient.Onset/Sylvain ng:chronic; chronic: slowly much worse Severity:very limiting Context:cigarette smoking Alleviating factors:relieved with bronchodilator Aggravating factors:worse with exertion Associated Symptoms:no snoring; no excessive daytime sleepiness; no arousals from sleep; no dyspnea; no decrease in exercise capacity; no fatigue; not coughing up sputum; no cough; no fever; no wheezing; no weight loss; no depression I thought it was a follow up from the hospital They said I still had the Flu I feel fine, my breathing is fine Ms Pulido was readmitted to [facility] 12/08/2024-12/10/2024 with AECOPD, she is doing better and she has been compliant with all her medications and she has decreased her salt, Tobacco and water (Ice cubes) intake. She feels better but she cannot tell me which medications she is currently taking. Payton Rae MD Attn: Accounting[address] [place], [address], [facility] 12/31/2024 15:17:33 OBGyn Episode No OBEpisode recorded.
--- OUTSIDE RECORDS SUMMARY | 2025-01-15 15:57 | XMS_ITS | Clinical Summary ---
Author Organization [facility] [employer] [facility] Address [address] [facility] [address] [place] [address] Phone Care Team Providers Care Washer Repairman Name Role Phone Unavailable Primary Care Provider Unavailabl e Allergies Active Allergy Reactions Criticality Noted Date Comments Codeine Nausea and Vomiting Low Iodinated Contrast Media Syncope High 01/13/2020 Sulfa (Sulfonamide Antibiotics) Shortness of Breath/Wheezing High Medications aspirin (BRAXTON) 81 mg Oral Tab Take 81 mg by mouth daily. Active DOCUSATE CALCIUM (STOOL SOFTENER ORAL) Take 1 Tablet by mouth daily. Active Blood-Glucose Meter (ACCU-CHEK VALERY PLUS METER) DX: E11.42 patient test bid. 1 Device 8 Active PROAIR HFA 90 mcg/actuation inhaler INHALE 2 PUFFS BY MOUTH EVERY 6 HOURS NEEDED FOR SHORTNESS OF BREATH OR WHEEZING 8.5 Gram 9 Active lancets (Accu-Chek Softclix Lancets) USE TWICE DAILY 200 Each 3 0 Active Lancing Device with Lancets (Accu-Chek Soft Dev Lancets) Kit Use bid 1 Each 1 Active budesonide/glycop yr/formoterol (BREZTRI AEROSPHERE INHALATION) Take by inhalation. Active ipratropium bromide (ATROVENT) 21 mcg (0.03 %) [place], Non-Aerosol Administer 2 Sprays in each nostril every 8 hours as needed. 3 Active loratadine (CLARITIN) 10 mg tablet Take 10 mg by mouth daily. Active fenofibrate (LOFIBRA) 160 mg Tablet TAKE 1 TABLET BY MOUTH DAILY 100 Tablet 2 3 Active famotidine (PEPCID) 20 mg tablet TAKE 1 TABLET BY MOUTH TWICE DAILY 20 Tablet 35 3 Active hydroCHLOROthiazi de 25 mg tablet TAKE 2 TABLETS BY MOUTH DAILY 180 Tablet 3 3 Active valsartan (DIOVAN) 320 mg tabletIndications :Essential hypertension TAKE 1 TABLET BY MOUTH DAILY 90 Tablet 3 3 Active fluticasone propionate (FLONASE) 50 mcg/spray [place], Suspension nasal inhaler Administer 1 [place] in each nostril daily. 48 Gram 3 3 Active amLODIPine (NORVASC) 10 mg tablet TAKE 1 TABLET(10 MG) BY MOUTH DAILY 90 Tablet 2 3 Active potassium chloride (K-TAB) 20 mEq Extended Release tabletIndications :Hypokalemia take 1 tablet by mouth daily 100 Tablet 2 4 Active diltiaZEM (CARDIZEM CD) 360 mg Controlled Delivery 24 hour capsule TAKE 1 CAPSULE(360 MG) BY MOUTH DAILY 90 Capsule 4 Active warfarin (COUMADIN) 3 mg tabletIndications :Paroxysmal atrial fibrillation (CMS/HCC) TAKE 1 AND 1/2 TABLETS BY MOUTH 4 DAYS PER WEEK AND 1 TABLET BY MOUTH 3 DAYS WEEKLY 112 Tablet 4 Active metFORMIN (GLUCOPHAGE) 1,000 mg tablet TAKE 1 TABLET BY MOUTH TWICE DAILY WITH MEALS 180 Tablet 1 4 Active blood sugar diagnostic (Accu-Chek Valery Plus test strp) Strip USE 1 STRIP TO TEST TWICE DAILY 90 Strip 4 Active pravastatin (PRAVACHOL) 40 mg tablet take 1 tablet by mouth daily 90 Tablet 4 Active Active Problems Patient Care Coordination No te Formatting of this note migh t be different from the original. Executive Associate: Dr. Anand pt uses [facility] Problem Noted Date Diagnosed Date Environmental allergies 08/20/2023 Thrombocytosis 08/07/2023 Overview (09/20/2023): Platelet count has been around 430 - 460 with normal WBC, Hb between 03/2015 and 11/2021. Plate count was 502 in 06/2022. 07/31/23 - WBC 8.9, Hb 12.6, Hct 39, MCV 87, platelets 592. Assessment & Plan (10/03/2023 12:13 PM HAIR SPINNING MACHINE OPERATOR): I had a detailed discussion with the patient and explained the cause of thrombocytosis including primary versus secondary. Primary causes would be due to essential thrombocytosis or myeloproliferative disorder. Secondary causes would be due to infection, inflammation, hemorrhage, recent surgery, iron deficiency, prior splenectomy, chronic smoking. I believe mild to moderately elevated and fluctuating platelet count is secondary due to underlying inflammation and smoking. Will repeat CBC, check iron panel and ferritin and contact her. Reassured her that there is no need for acute intervention at this time since she is already on aspirin and Plavix. Will monitor her CBC every 3 months and plan to see her in the office in about 6 months. Should the platelet count increase steadily, will obtain JAK2 mutation and proceed further. She verbalized understanding of today's discussion, was satisfied with the office visit, and had no further questions. Type 2 diabetes mellitus wit h stage 3b chronic kidney disease, without long-term current use of insulin 12/07/2022 Overview (12/07/2022): Added per pre-visit query; VLP Stage 3b chronic kidney disease 12/06/2022 COPD (chronic obstructive pulmonary disease) History of TIA (transient ischemic attack) and s troke 11/08/2019 Paroxysmal atrial fibrillation 11/08/2019 Aortic atherosclerosis 2019 Overview (2019): Chest XR; 12-21-17 kh [place] (myocardial infarction) 2019 Overview (2019): Added per 01-15-19 query kh Colonoscopy refused 01/30/2019 Microalbuminuria 09/07/2015 Tobacco user 01/29/2013 Overview (10/03/2023): Chronic and heavy smoking with 44 pack years of cigarette smoking as of October 2023 and still smokes 1 pack of cigarettes per day. Assessment & Plan (10/03/2023 12:16 PM HAIR SPINNING MACHINE OPERATOR): I have discussed the deleterious effects of cigarette smoking including chronic lung damage, multiple cancers, thromboembolism leading to limb loss, strokelike symptoms and counseled her and spent 5 min and discussed Nicoderm patch with either Nicorette gum or lozenge, auricular acupuncture therapy, Wellbutrin, Chantix. She verbalized understanding. She is aware of this but is unable to quit and is not ready to quit yet. Pain of left thigh 12/03/2012 Overview (11/08/2013): Burning; likely neuropathic. Lumbar disease vs. Meralgia paresthetica. No improvement with gabapentin, elavil. Hypertension 10/26/2012 Osteoarthritis of lumbar spine 10/25/2012 Overview (10/25/2012): 09/02/12 lumbar spine xray:diffuse facet arthritis most severe at L4-5, L5-S1, moderate diffuse degernative disc disease more severe L5-S1 09/02/12 L hip xray: mild arthritic changes Type 2 diabetes mellitus with polyneuropathy Overview (09/06/2016): 01/08/13 glipizide stopped due to hypoglycemia. Metformin 500mg bid continued. Updated from E11.49 to E11.42 as coded on 06/01/2016- [facility] coding Mixed hyperlipidemia Overview (11/16/2015): lipitor->didn't tolerate crestor-->can't afford Pravastatin-->start 11/2015 Symptomatic menopausal or female climacteric sta ryan Diverticulosis Coronary artery disease of n ative artery of [place] heart with stable angina pectoris Overview (2019): 12/15/2005: Taxus JANNETH to prox RCA 2006 negative submaximal stress test Updated per 01-15-19 query kh GERD (gastroesophageal reflux disease) Resolved Problems Problem Noted Date Diagnosed Date Resolved Date Routine gynecological examination 10/26/2012 Unspecified hereditary and i diopathic peripheral neuropathy 09/12/2015 Encounters Date Type Department Care Team Description 11/24/2024 Orders Only [facility] [place] [address] [address] Yuval Cazares MD Thrombocytosis 10/23/2024 External Device Data STL ABSTRACTION Provider, Abstract 10/22/2024 External Device Data ST[facility] ABSTRACTION Provider, Abstract 10/21/2024 External Device Data ST[facility] ABSTRACTION Provider, Abstract from Last 3 Months Immunizations Immunization Administration Dates Next Due (ADACEL/BOOSTRIX)(10 YR UP) TDAP VACCINE, 0.5ML, IM 11/17/2020,12/31/2008,07/01/2008 (AREXVY)(60 YR UP) RSV, CHRIS MBINANT, PROTEIN SUBUNIT RSVPREF, ADJUVANT RECONSTITUTED, 0.5 ML, PF 06/28/2023 (COMIRNATY)(12 YR UP) COVID- 19 VACCINE, MRNA, SPIKE PROTEIN, LNP, [place](PF) 30 MCG/0.3 ML IM SUSP 06/28/2023 (PNEUMOVAX 23)(50 YRS UP) PN EUMOCOCCAL POLYSACCHARIDE (PPV23) 0.5 ML, IM 08/06/2014 (PREVNAR 13)(6 WKS UP) PNEUM OCOCCAL CONJUGATE (PCV13) 0.5 ML, IM 11/28/2021 (PREVNAR 20)(6 WKS UP) PNEUM OCOCCAL CONJUGATE VACCINE 20-VALENT (PCV20), POLYSACCHARIDE [id number] CONJUGATE, ADJUVANT 0.5 ML (PF) IM 03/08/2023 (Pfizer Bivalent)(12 Yr Up) COVID-19 Vaccine - Emergency Use Authorization, MRNA, Lnp-S(Pf) 30 Mcg/0.3 Ml Susp 03/08/2023 (SHINGRIX)(50 YRS UP) ZOSTER VACCINE RECOMBINANT, 0.5 ML, IM 07/25/2019,05/14/2019 (SPIKEVAX) (12 YRS UP PRIMAR Y SERIES) COVID-19 VACCINE - MRNA-1273(PF) 100 MCG/0.5 ML IM SUSP 09/11/2021,02/02/2021,01/05/2021 INFLUENZA VACCINE HIGH DOSE QUADRIVALENT 65 YR UP PF IM 06/21/2021,05/22/2019,07/03/2017,06/27 INFLUENZA VACCINE QUADRIVALE NT 6 MOS UP PF IM 06/04/2018 Influenza Seasonal Unspecifi ed Formulation IM 06/28/2023,05/22/2019,07/03/2017,06/27,07/05/2015,07/09/2012,08/11/2011 ,08/01/2010 Influenza Vaccine High Dose 65+ Yrs IM 0 06/10/2020,05/22/2019,06/25/2014,07/31 Influenza Vaccine Tri Split 4+ Im 07/05/2015,01/2008 Pneumococcal Polysaccharide Vacc 23-mariana IM SCHIP 07/01/2011,09/04/2008 Family History Medical History Relation Name Comments Respiratory Disease Father Unknown Maternal Grandfather Unknown Maternal Grandmother Stroke Mother Unknown Paternal Grandfather Unknown Paternal Grandmother Relation Name Status Comments Father (Age 89) Old Age Maternal Grandfather Maternal Grandmother Mother Other Paternal Grandfather Paternal Grandmother Social History Tobacco Use Types Packs/Day Years Used Date Smoking Tobacco: Every Day Cigarettes 1 44 Smokeless Tobacco: Never Tobacco Cessation:Ready to Q uit: Not Asked; Counseling Given: Not Answered Alcohol Use Standard Drinks/Week Comments No 0 (1 standard drink = 0.6 oz pur e alcohol) Financial Resource Strain Answer Date R ecorded How hard is it for you to pa y for the very basics like food, housing, medical care, and heating? Not hard at all 11/29/2022 Food Insecurity Answer Date Recorded In the past 12 months, have you worried that your food would run out before you had money to buy more? Never true 11/29/2022 In the past 12 months, did y ou run out of food and didn't have money to buy more? Never true 11/29/2022 Transportation Needs Answer Date Record ed In the past 12 months, has l ack of transportation kept you from medical appointments or from getting medications? No 11/29/2022 Lack of Transportation (Non-Medical) Not on file 11/29/2022 Comments No Sex and Gender Information Value Date Recorded Sex Assigned at Not on file Legal Sex Female 5:29 AM HAIR SPINNING MACHINE OPERATOR Gender Identity Not on file Sexual Orientation Not on file Last Filed Vital Signs Vital Sign Reading Time Taken Comments Blood Pressure 140/70 10/03/2023 11:35 AM HAIR SPINNING MACHINE OPERATOR Pulse 99 10/03/2023 11:35 AM HAIR SPINNING MACHINE OPERATOR Temperature 36.4 C (97.5 F) 10/03/2023 11:35 AM HAIR SPINNING MACHINE OPERATOR Respiratory Rate 16 10/03/2023 11:35 AM HAIR SPINNING MACHINE OPERATOR Oxygen Saturation 96% 10/03/2023 11:35 AM HAIR SPINNING MACHINE OPERATOR Inhaled Oxygen Concentration - - Weight 58.5 kg (129 lb) 10/03/2023 11:35 AM HAIR SPINNING MACHINE OPERATOR Height 154.9 cm (5' 1 ) 10/03/2023 11:35 AM HAIR SPINNING MACHINE OPERATOR Body Mass Index 24.37 10/03/2023 11:35 AM HAIR SPINNING MACHINE OPERATOR Plan of Treatment Health Maintenance Due Date Last Done Comments DIABETES HBA1C Q 6 MONTHS 12/04/20232022, 11/29/2022, 06/20/2022, Additional history exists FIT/FOBT Q 1 year 01/10/2024 01/09/2023, , 05/21/2020, Additional history exists DIABETES MICROALBUMIN ANNUAL SCREEN 01/23/2024 01/22/2023, 11/29/2021, 04/28/2021, Additional history exists DIABETES ANNUAL RETINAL EXAM 03/20/2024, 03/09/2023, 01/20/2022, Additional history exists INFLUENZA VACCINE (#1) 2024 3, 06/21/2021, 06/10/2020, Additional history exists COVID-19 Vaccine (2023-2 5 season) 2024 06/28/2023, 03/08/2023, 09/11/2021, Additional history exists DIABETES ANNUAL FOOT EXAM 06/05/20242022, 05/18/2021, 05/17/2020, Additional history exists LDL CHOLESTEROL ANNUAL 06/05/2024 3, 06/20/2022, 04/28/2021, Additional history exists DTAP/TDAP/TD VACCINES (4 - T d or Tdap) 11/17/2030 11/17/2020, 12/31/2008, 07/01/2008 OSTEOPOROSIS SCREENING Completed 02/04/2014, 2013 ZOSTER VACCINE Completed 07/25/2019, 05/14/2019 PNEUMOCOCCAL VACCINE 50+ YEARS Completed 0 03/08/2023, 11/28/2021, 08/06/2014, Additional history exists RSV VACCINE (60+ or ) Completed 06/28/2023 Procedures Procedure Name Priority Date/Time Associated Diagnosis Comments LIPID PANEL Routine 06/05/2023 9:38 AM CDT Type 2 diabetes mellitus with polyneuropathy ([facility]/HCC) Mixed hyperlipidemia HEMOGLOBIN A1C Routine 06/05/2023 9:38 AM CDT Type 2 diabetes mellitus with polyneuropathy (CMS/HCC) HM DIABETES EYE EXAM Routine 03/20/2023 MICROALBUMIN/CREATI NINE RATIO, RANDOM UR Routine 01/22/2023 9:19 AM CDT Type 2 diabetes mellitus with polyneuropathy (CMS/HCC) OCCULT BLOOD IMMUNOASSAY, COLORECTAL SCREEN Routine 01/09/2023 12:00 AM CDT XR DEXA BONE DENSITY AXIAL 1 OR MORE SITES Routine 02/04/2014 Post-menopausal from Last 3 Months or Most Recently Relevant to Health Maintenance Results * (ABNORMAL) HEMOGLOBIN A1C (06/05/2023 9:38 AM CDT) HEMOGLOBIN A1C 6.2(H) <5.7 % of total Hgb [facility] Comment: For someone without known diabetes, a hemoglobin A1c value between 5.7% and 6.4% is consistent with prediabetes and should be confirmed with a follow-up test. For someone with known diabetes, a value <7% indicates that their diabetes is well controlled. A1c targets should be individualized based on duration of diabetes, age, comorbid conditions, and other considerations. This assay result is consistent with an increased risk of diabetes. Currently, no consensus exists regarding use of hemoglobin A1c for diagnosis of diabetes for children. ESTIMATED AVERAGE GLUCOSE (MG/DL) 131 mg/dL [facility] ESTIMATED AVERAGE GLUCOSE (MMOL/L) 7.3 mmol/L [facility] Comment: FASTING:YES FASTING: YES Test Performed at: [facility] [address] [address] [place] [address] Gunner Rodriguez Vo Blood 06/05/2023 9:38 AM CDT 06/05/2023 9:38 AM CDT Katia Duran DO CHEMISTRY ORDERABLES Final Res ult [facility] [phone] [place] [address] [address] [place] [address] * LIPID PANEL (06/05/2023 9:38 AM CDT) CHOLESTEROL 156 <200 mg/dL Jesusita [facility] HDL 55 > OR = 50 mg/dL [facility] TRIGLYCERIDE 144 <150 mg/dL [facility] LDL CALCULATED 77 mg/dL (calc) Jesusita [facility] Comment: Reference range: <100 Desirable range <100 mg/dL for primary prevention; <70 mg/dL for patients with CHD or diabetic patients with > or = 2 CHD risk factors. LDL-C is now calculated using the Cameron calculation, which is a validated novel method providing better accuracy than the Friedewald equation in the estimation of LDL-C. Wilmar LEO et al. ACOSTA. 2013;310(19): 2845-7182 (http://education.[employer]/faq/TMR549) CHOL/HDL RATIO 2.8 <5.0 (calc) Jesusita Wallace TOTAL NON-HDL CHOL(LDL+VLDL) 101 <130 mg/dL (calc) Jesusita [facility] Comment: For patients with diabetes plus 1 major ASCVD risk factor, treating to a non-HDL-C goal of <100 mg/dL (LDL-C of <70 mg/dL) is considered a therapeutic option. FASTING:YES FASTING: YES Test Performed at: [place] [address] [address] [place] [address] [facility]ital[facility]Mesha [facility] Blood 06/05/2023 9:38 AM CDT 06/05/2023 9:38 AM CDT Katia Duran DO CHEMISTRY ORDERABLES Final Res ult [facility] [phone] [place] [address] [address] [place] [address] * DIABETES EYE EXAM (03/20/2023) DIABETIC RETINOPATHY SCREENING DR TORRIE WILLIAM us Abstract Provider HEALTH MAINTENANCE Edited Resu lt - Final DR TORRIE WILLIAM CLIA# [id number] [address] [place] [address] * (ABNORMAL) MICROALBUMIN/CREATININE RATIO, RANDOM UR (01/22/2023 9:19 AM CDT) Pathologist [facility] Creatinine, Urine 76 20 - 275 mg/dL [facility] MICROALBUMIN, URINE 4.1 See Note: mg/dL [facility] Comment: Reference Range: Reference Range Not established MICROALBUMIN/CREAT RATIO, UR 54(H) <30 mcg/mg creat [facility] Comment: The ADA defines abnormalities in albumin excretion as follows: Albuminuria Category Result (mcg/mg creatinine) Normal to Mildly increased <30 Moderately increased 30-299 Severely increased > OR = 300 The ADA recommends that at least two of three specimens collected within a 3-6 month period be abnormal before considering a patient to be within a diagnostic category. Test Performed at: [place] [address] [place] [address] Gunner Carmichael MD Urine URINE SPECIMEN OBTAINED BY CLEAN CATCH PROCEDURE / Unknown 01/22/2023 9:19 AM CDT 01/22/2023 9:19 AM CDT us Katia Duran DO URINE ORDERABLES Final Result [facility] [phone] [place] [address] [address] [place] anchor.travel [address] * OCCULT BLOOD IMMUNOASSAY, COLORECTAL SCREEN (01/09/2023 12:00 AM CDT) Pathologist [facility] FECAL GLOBIN SEE NOTE [facility] [place] Comment: FECAL GLOBIN BY IMMUNOCHEMISTRY Micro Number: [id number] Test Status: Final Specimen Source: Not given Specimen Quality: Adequate Fecal Globin: Not Detected FASTING: UNKNOWN Test Performed at: [facility] [address] [place] [address] Gunner Carmichael MD 01/09/2023 01/16/2023 11: 37 AM CDT us Katia Duran DO BODY FLUIDS AND STOOLS Final R esult [facility] [phone] [facility] [address] [place] [address] * XR DEXA BONE DENSITY AXIAL 1 OR MORE SITES (02/04/2014) Anatomical Region Laterality Modality Other us Rosa Maria Kaba MD DIAGNOSTIC IMAGING ORDERABLES Fi nal Result from Last 3 Months or Most Recently Relevant to Health Maintenance Insurance [facility] [id number] Advance Directives For more information, please contact: [phone] Documents on File Type Date Recorded Patient Protection Specialist Expl anation Advance Directive Living Will 07/06/2016 3:29 PM Advance Directive Living Will Advance Directive POA 07/06/2016 3:28 PM A dvance Directive POA
--- OUTSIDE RECORDS SUMMARY | 2025-01-15 15:57 | XMS_ITS | Clinical Summary ---
Author Organization [facility] [employer] Address [address] [place] [address] Care Team Providers Care Automation And Controls Instructor Name Role Phone Jose Durananda Jose Luis REVELES Primary Care Provider [phone] Source Comments [facility] [employer],non-owned Affiliates and Associated Physician Practices is amultiple site organization consisting of ambulatory clinics and hospital sitesin [place], [place], [place] and [place]. This disclosure is being madepursuant to the Care Everywhere program and may not contain all information available regarding this patient. Last updated 18.[facility] [employer] Allergies Active Allergy Reactions Criticality Noted Date Comments Codeine GI Discomfort 11/30/2011 Sulfa Drugs Shortness of Breath High 11/30/2011 Medications * Be aware that medications may not be up to date on this document. Alwaysverify current medications with the patient. lisinopril (PRINIVIL; ZESTRIL) 40 MG tablet 10 mg once daily Act lewis metFORMIN (GLUCOPHAGE) 500 MG tablet 2 times daily. A ctive aspirin 81 MG tablet once daily. Active Docusate Calcium (STOOL SOFTENER PO) once daily. Activ e fenofibrate (LOFIBRA) 160 MG tablet Take 160 mg by mouth once daily Take with largest meal of the day. Active nitroGLYCERIN (NITROSTAT) 0.4 MG tablet Dissolve 0.4 mg under the tongue every 5 minutes as needed for Angina Active pravastatin (PRAVACHOL) 40 MG tablet Take 40 mg by mouth at bedtime Active fluticasone propionate (FLONASE) 50 MCG/ACT nasal spray 2 Sprays 5 Active polyethylene glycol 3350 (MIRALAX) powderIndicatio ns:Constipation Take 17 g by mouth once daily Reasons: Constipation 527 g 11 6 Active benzonatate (TESSALON) 100 MG capsule Take 1 capsule by mouth 3 times daily as needed for Cough 30 capsule 7 Active HYDROcodone-ward taminophen (Deputy) 5-325 MG tabletIndicatio ns:Pain of right thumb,Paronychi a of finger of right hand Take 1 (one) tablet by mouth every 6 hours as needed for Pain 3 tablet 3 Active Active Problems Problem Noted Date Diagnosed Date Old VA (myocardial infarction) 01/16/2012 Overview (01/16/2012): 2006 HTN (hypertension) Hyperlipidemia DM with Neurological Manifestations Arthritis CAD (coronary artery disease) Diabetic polyneuropathy Overview (08/08/2015): Family History Medical History Relation Name Comments Cancer - Breast Sister 1 Hypertension Sister 1 Hypercholesterolemia Sister 2 Cancer - Ovarian Neg Hx Relation Name Status Comments Sister 1 Alive Sister 2 Social History Tobacco Use Types Packs/Day Years Used Date Smoking Tobacco: Every Day Cigarettes 1 35 Smokeless Tobacco: Never Alcohol Use Standard Drinks/Week Comments No 0 (1 standard drink = 0.6 oz pur e alcohol) Comments No Sex and Gender Information Value Date Recorded Sex Assigned at Not on file Legal Sex Female 5:00 AM METROLOGIST Gender Identity Not on file Sexual Orientation Not on file Last Filed Vital Signs Vital Sign Reading Time Taken Comments Blood Pressure 149/89 08/16/2023 8:45 AM METROLOGIST Pulse 120 08/16/2023 8:45 AM METROLOGIST Temperature 36.4 C (97.6 F) 08/16/2023 8:45 AM METROLOGIST Respiratory Rate 18 08/16/2023 8:45 AM METROLOGIST Oxygen Saturation 97% 08/16/2023 8:45 AM METROLOGIST Inhaled Oxygen Concentration - - Weight 68 kg (150 lb) 07/03/2021 9:09 AM CDT Height 154.9 cm (5' 1 ) 08/16/2023 8:45 AM METROLOGIST Body Mass Index 28.34 07/03/2021 9:05 AM CDT Plan of Treatment Health Maintenance Due Date Last Done Comments BONE DENSITY TESTING 1945 HEPATITIS C SCREENING 02/06/1965 DTAP/TDAP/TD VACCINES (1 - Tdap) 1966 PNEUMOCOCCAL VACCINE 50+ (1 of 2 - PCV) 1966 ZOSTER VACCINE (1 of 2) 1997 DIABETES RETINOPATHY SCREENING 01/17/2012 DIABETES-FOOT EXAM WITH MONOFILAMENT 01/17/2012 DIABETES-HGB A1C 07/29/2020 01/28/2020, 06/04/2018 Respiratory Syncytial Virus (RSV) Vaccine Pt: or over 60 yrs (1 - 1-dose 75+ series) 2022 LUNG CANCER SCREENING 03/15/2022 03/15/2021 DIABETES-SERUM CREATININE 04/10/20232021, 07/03/2021, 12/14/2020, Additional history exists COVID-19 VACCINE ( season) 2024 06/28/2023, 03/08/2023, 09/11/2021, Additional history exists DEPRESSION SCREENING 10/01/2024 DIABETES - URINE PROTEIN SCREENING 10/01/2024 12/14/2020, 01/28/2020 MEDICARE AWV CALENDAR YEAR 2024 INFLUENZA VACCINE (Season Ended) 2025 06/28/2023, 06/21/2021, 06/10/2020, Additional history exists HEPATITIS B VACCINE Aged Out No longe r eligible based on patient's age to complete this topic HIB VACCINE Aged Out No longer eligi ble based on patient's age to complete this topic HPV VACCINE Aged Out No longer eligi ble based on patient's age to complete this topic MENINGOCOCCAL (Group B) VACCINE SHARED DECISION-MAKING Aged Out No longer eligible based on patient's age to complete this topic MENINGOCOCCAL GROUPS A/C/Y/W VACCINE Aged Out No longer eligible based on patient's age to complete this topic Procedures Procedure Name Priority Date/Time Associated Diagnosis Comments BASIC METABOLIC PANEL (CALCIUM TOTAL) STAT 04/10/2022 2:[address] LUNG SCREEN LOW DOSE Routine 03/15/2021 9:06 AM CDT Personal history of nicotine dependence from Last 3 Months or Most Recently Relevant to Health Maintenance Results * (ABNORMAL) BASIC METABOLIC PANEL (CALCIUM TOTAL) (04/10/2022 2:34 PM CDT) Glucose 138(H) 70 - 105 mg/dL 04/10/2022 2:54 PM CDT [facility] Sodium 140 136 - 145 mmol/L 04/10/2022 2:54 PM CDT [facility] Potassium 3.9 3.5 - 5.1 mmol/L 04/10/2022 2:54 PM CDT [facility] Chloride 103 98 - 107 mmol/L 04/10/2022 2:54 PM CDT [facility] CO2 24 23 - 31 mmol/L 04/10/2022 2:54 PM CDT [facility] Calcium 10.1 8.4 - 10.4 mg/dL 04/10/2022 2:54 PM CDT [facility] Anion Gap 13 8 - 18 mmol/L 04/10/2022 2:54 PM CDT [facility] BUN 16 9.8 - 20.1 mg/dL 04/10/2022 2:54 PM CDT [facility] Creatinine 1.28(H) 0.57 - 1.11 mg/dL 04/10/2022 2:54 PM CDT [facility] eGFR by CKD-EPI 44(L) >=90 mL/min/1.7 3 m2 04/10/2022 2:54 PM CDT [facility] Blood BLOOD SPECIMEN / Unknown Venipuncture / Unknown 04/10/2022 2:34 PM CDT 04/10/2022 2:34 PM CDT Abdirizak Stringer PA-C LAB - CHEMISTRY ORDER CLARK Final Result [facility] [address] [place] [address] * CT LUNG SCREEN LOW DOSE (03/15/2021 9:06 AM CDT) Anatomical Region Laterality Modality Chest Computed Tomogra phy 03/15/2021 9:15 AM CDT Impressions 03/15/2021 9:30 AM CDT Baseline screening examination with benign-appearing findings most consistent with lung RADS-2. Follow-up as recommended below. ACR Lung-RADS Category/Recommendations: 0: Need prior comparisons or additional images 1: Negative: 12 month follow up LDCT (Low Dose CT) 2: Benign appearance or behavior: 12 month follow up LDCT 3: Probably Benign: 6 month follow up LDCT 4A: Suspicious: 3 month follow up LDCT (or immediate PET if >8mm solid component) 4B: Very Suspicious: Immediate Chest CT or PET if >8mm solid component (or 1 month follow up Chest CT if suspected inflammatory or infectious condition) 4X: Very suspicious: Cat 3 or 4A nodules with additional suspicious findings Modifier- S : Significant NON-lung cancer findings (Data Mining Phrase: [facility]-LungNodule ) For details of the ACR Lung-RADS program, categories and recommendations: 1) http://www.acr.org/Quality-Safety/Resources/LungRADS 2) Internet search: Lung-RADS Lung Cancer Screening 3) Contact [facility] thoracic nurse coordinator ([phone]) *Reading Radiologist: Virginia Parrish on 03/15/2021 at 9:30 AM Narrative 03/15/2021 9:[address] chest without contrast. HISTORY: Patient is a current smoker with 35 pack year history TECHNIQUE: All CT scans at [facility] are performed using dose optimization techniques as appropriate to include AEC and Adjustment of mA and/or kV according to patient size, exam type and indication ([facility] CQMS #436). Helical CT acquisition of chest without intravenous iodinated contrast. Low dose technique is optimized for lung nodule detection. Absence of intravenous contrast and high noise low dose technique reduce exam sensitivity particularly for solid parenchymal organs + mediastinal structures. COMPARISON: None FINDINGS: The peripheral soft tissues are unremarkable. There is no significant axillary or thoracic inlet lymphadenopathy. The heart and the mediastinum appear normal with moderate calcification of the coronary vessels. The visualized upper abdomen is notable for a 2.5 cm left renal cyst with simple fluid attenuation. The central airways are patent. There is no gross pleural effusion or pneumothorax. No significant emphysema. Punctate scattered calcified granulomas noted. On series 3 image 73, there is a punctate left upper lobe subpleural nodule. Image 124, punctate right upper lobe nodule. Image 143, punctate left upper lobe nodule. No focal osseous lesion identified. Procedure Note Virginia Parrish MD - 03/15/2021 CT chest without contrast. HISTORY: Patient is a current smoker with 35 pack year history TECHNIQUE: All CT scans at [facility] are performed using dose optimization techniques as appropriate to include AEC and Adjustment of mA and/or kV according to patient size, exam type and indication ([facility] CQMS #436). Helical CT acquisition of chest without intravenous iodinated contrast. Low dose technique is optimized for lung nodule detection. Absence of intravenous contrast and high noise low dose technique reduce exam sensitivity particularly for solid parenchymal organs + mediastinal structures. COMPARISON: None FINDINGS: The peripheral soft tissues are unremarkable. There is no significant axillary or thoracic inlet lymphadenopathy. The heart and the mediastinum appear normal with moderate calcification of the coronary vessels. The visualized upper abdomen is notable for a 2.5 cm left renal cyst with simple fluid attenuation. The central airways are patent. There is no gross pleural effusion or pneumothorax. No significant emphysema. Punctate scattered calcified granulomas noted. On series 3 image 73, there is a punctate left upper lobe subpleural nodule. Image 124, punctate right upper lobe nodule. Image 143, punctate left upper lobe nodule. No focal osseous lesion identified. IMPRESSION Baseline screening examination with benign-appearing findings most consistent with lung RADS-2. Follow-up as recommended below. ACR Lung-RADS Category/Recommendations: 0: Need prior comparisons or additional images 1: Negative: 12 month follow up LDCT (Low Dose CT) 2: Benign appearance or behavior: 12 month follow up LDCT 3: Probably Benign: 6 month follow up LDCT 4A: Suspicious: 3 month follow up LDCT (or immediate PET if >8mm solid component) 4B: Very Suspicious: Immediate Chest CT or PET if >8mm solid component (or 1 month follow up Chest CT if suspected inflammatory or infectious condition) 4X: Very suspicious: Cat 3 or 4A nodules with additional suspicious findings Modifier- S : Significant NON-lung cancer findings (Data Mining Phrase: [facility]-LungNodule ) For details of the ACR Lung-RADS program, categories and recommendations: 1) http://www.acr.org/Quality-Safety/Resources/LungRADS 2) Internet search: Lung-RADS Lung Cancer Screening 3) Contact [facility] thoracic nurse coordinator ([phone]) *Reading Radiologist: Virginia Parrish on 03/15/2021 at 9:30 AM us Allison Castro CONTRACT POST OFFICE CLERK-VASCULAR SURGEON CT ORDERABLES Maye marybeth Result from Last 3 Months or Most Recently Relevant to Health Maintenance Insurance [facility] MANAGED MEDICARE [facility] BC/BLUE BLUE [place] Care Teams Automation And Controls Instructor Relationship Specialty Start Date End Date Katia Duran DO [address] [place] [address] PCP - General Internal Medicine 12/17/18
--- OUTSIDE RECORDS SUMMARY | 2025-01-15 15:57 | XMS_ITS | Encounter Summary ---
[facility] Organization [facility] Address [address] [place] [address] Care Team Providers Care Apartment House Manager Name Role Phone ReneeJoseKatia Jose Luis REVELES Primary Care Provider [phone] Reason for Visit * Reason Onset Date Comments Monica Medical Record Assistant 08/26/2022 Encounter Details Date Type Department Care Team (Late st Contact Info) Description 08/26/2022 Telephone [facility] [address] [place] [id number] Nahum Wharton, RN Monica Medical Record Assistant Social History Tobacco Use Types Packs/Day Years Used Date Smoking Tobacco: Every Day Cigarettes 0.3 40 Smokeless Tobacco: Never Alcohol Use Standard Drinks/Week Comments No 0 (1 standard drink = 0.6 oz pur e alcohol) Financial Resource Strain Answer Date R ecorded How hard is it for you to pa y for the very basics like food, housing, medical care, and heating? Somewhat hard 11/28/2021 Food Insecurity Answer Date Recorded In the past 12 months, have you worried that your food would run out before you had money to buy more? Never true 11/28/2021 In the past 12 months, did y ou run out of food and didn't have money to buy more? Never true 11/28/2021 Transportation Needs Answer Date Record ed In the past 12 months, has l ack of transportation kept you from medical appointments or from getting medications? Yes 11/28/2021 Lack of Transportation (Non-Medical) Not on file 11/28/2021 Comments No Sex and Gender Information Value Date Recorded Sex Assigned at Not on file Legal Sex Female 5:29 AM CREELER Gender Identity Not on file Sexual Orientation Not on file documented as of this encounter Miscellaneous Notes * Telephone Encounter - Nahum Wharton RN - 08/26/2022 6:48 AM CST [facility] Interaction Note: Service Line: Monica Medical Record Assistant Chief Complaint: Out of medication - Cardizem Vital Signs: Unable to obtain Assessment: Pt receives her Cardizem 360 mg daily from [facility]. Chart shows 1 refill available but pt's bottle shows 0 refills. Pt needs this medication on a daily basis. RX to be sent to local [facility] for coverage Plan: Pt to have a 7 day RX sent to [facility] for coverage Pt to contact [email or web address] for refill Pt agrees with this plan Note to PCP about this encounter Discussed concerning signs and symptoms that would indicate the need for further evaluation. Patient agreeable with plan. Visit was completed by: Phone Case discussed with MAGALY Wharton RN, 08/26/2022 6:53 AM LER documented in this encounter Plan of Treatment Not on file documented as of this encounter Visit Diagnoses Not on filedocumented in this encounter Care Teams Apartment House Manager Relationship Specialty Start Date End Date Katia Duran DO [address] [facility] [address] [place] [address] PCP - General Internal Medicine 01/16/19 04/14/24 documented as of this encounter
--- OUTSIDE RECORDS SUMMARY | 2025-01-15 15:57 | XMS_ITS | Data Portability ---
Author Organization [place] [facility] [employer], Main Office Address [address] [place] [address] Assessment Encounter Date Assessment Date Assessment LastModified by Organization Details LastModified Time 05/29/2024 05/29/2024 Assessment: Nicotine smoke: 1 ppd 1978-present = 45 pack years Cough Dyspnea Plan: The following were reviewed and explained to the patient: primary care/referral note Chest 1 view 12/07/23 no acute disease Nicotine cessation counseling provided for 3.5 minutes. Cocoa for quitting nicotine include getting ready, getting support and encouragement, learning new skills and behaviors and being prepared to handle slips. Tips for dealing with cravings provided. Prevention of subsequent illnesses from nicotine addiction discussed. Comorbidities include but are not limited to hypertension, cerebrovascular disease, coronary heart disease, congestive heart failure, hyperlipidemia, COPD/asthma, peptic ulcer disease, esophagitis/gastri tis, and osteoporosis. Therapy options offered include: Quitting by total abstinence Receiving nicotine replacement therapy Undergoing hypnosis Filling a bupropion or varenicline prescription Enrolling in Quit For Life program Registering at [email or web address] Making a call to 9-840-AOOV-NOW ( ). A strong, clear, personalized message was given to the patient to quit smoking. The patient was urged to set a quit date. We discussed patient's barriers to quitting and I will be of assistance when patient is ready to quit. I encouraged patient to inform friends and family of plans to quit with a request for support. I encouraged the patient to remove all cigarettes from the environment. We reviewed any previous quit attempts and lessons learned from them. I encouraged total abstinence from smoking and advised the patient that drinking alcohol and/or associating with other smokers are associated with failure or relapse. Patient can enroll in [facility]'s smoking cessation class through Carolyne Vargas RN at . Enrollment is free and classes are held every sunday of the month from 1:30 pm to 2:30 pm at the conference room next to the cafeteria on the ground floor. The [employer] recommends annual screening for lung cancer with low-dose computed tomography (LDCT) for people aged 50 to 80 years old who smoke or formerly smoked and have a 20-year or greater pack-year history. Screening is no longer discontinued even when a person has not smoked for 15 years. Cough/Dyspnea workup will be done as follows: Respiratory allergen panel for [facility] Serum IgE Serum total IgG, IgG1, IgG2, IgG3, IgG4 Xqlme-1-cozszncjal n phenotype and level TB stimulated gamma interferon B-type natriuretic peptide (BNP) Eosinophil count Complete pulmonary function testing (PFT) Chest CT Continue Albuterol HFA as needed. Continue Breztri aerosphere 160/9/4.8 mcg 2 puffs BID. Gargle after use. The patient does not know how to accurately administer the inhalers. Today, the patient was shown how to take these medications. The proper technique for delivering these medications was instructed. The patient expressed a clear understanding and demonstrated back how to use these medications. Without the proper technique, the patient will not reap the benefits of these medications as the contents will not reach the lower airways as intended to be. Adherence to therapy is advocated. Nonadherence may lead to treatment failure, further progression of the condition, and other complications. Hospitals admissions are often the result of individuals not taking prescription medications accurately. Alternatively, greater adherence to medication regimens have shown to lower rates of hospitalization and decrease total medical costs in patients with chronic medical conditions. Advocated influenza vaccination annually and pneumonia vaccination KOMAL. Advocated weight loss through diet and exercise. Patient's ideal body weight according to height and gender is up to 115 lbs. Encouraged patient to adjust caloric intake to maintain/achieve ideal body weight, emphasizing on fruits, vegetables, whole grains, and fat-free or low-fat products. These include lean meats, poultry, fish, beans, eggs, and nuts and foods that are low in saturated fats, trans-fats, cholesterol, salt (sodium), and glycemic index. Stressed the importance of regular exercise up to the patient's capacity limits. In this case, we recommend 20 min daily walking, 2 days a week of resistance training. Patient to monitor BP daily and bring records to PCP for further management. Follow-up: [address] and PFT Not available 05/29/2024 09:51:29 09/02/2024 09/02/2024 Assessment: Nicotine smoke: 1 ppd 1978-present = 45 pack years Mod COPD Bronchiectasis 2 mm MARIA FERNANDA calcified nodule Plan: The following were reviewed and explained to the patient: Lab data 05/29/[address] 08/06/23 4 mm RUL nodule Chest CT 06/30/24 bronchiectasis, 2 mm MARIA FERNANDA calcified nodule PFT 08/25/24 FEV1 1.18 L (65%), BD 90 mL = 9%, TLC 6.13 L (133%), RV 4.17 L (191%), DLCO 45%, DLCO/VA 63% Nicotine cessation counseling provided. Cocoa for quitting nicotine include getting ready, getting support and encouragement, learning new skills and behaviors and being prepared to handle slips. Tips for dealing with cravings provided. Prevention of subsequent illnesses from nicotine addiction discussed. Comorbidities include but are not limited to hypertension, cerebrovascular disease, coronary heart disease, congestive heart failure, hyperlipidemia, COPD/asthma, peptic ulcer disease, esophagitis/gastri tis, and osteoporosis. Therapy options offered include: Quitting by total abstinence Receiving nicotine replacement therapy Undergoing hypnosis Filling a bupropion or varenicline prescription Enrolling in Quit For Life program Registering at [email or web address] Making a call to 4-286-ITTQ-NOW ( ). A strong, clear, personalized message was given to the patient to quit smoking. The patient was urged to set a quit date. We discussed patient's barriers to quitting and I will be of assistance when patient is ready to quit. I encouraged patient to inform friends and family of plans to quit with a request for support. I encouraged the patient to remove all cigarettes from the environment. We reviewed any previous quit attempts and lessons learned from them. I encouraged total abstinence from smoking and advised the patient that drinking alcohol and/or associating with other smokers are associated with failure or relapse. Patient can enroll in [facility]'s smoking cessation class through Carolyne Vargas RN at . Enrollment is free and classes are held every sunday of the month from 1:30 pm to 2:30 pm at the conference room next to the cafeteria on the ground floor. The [employer] recommends annual screening for lung cancer with low-dose computed tomography (LDCT) for people aged 50 to 80 years old who smoke or formerly smoked and have a 20-year or greater pack-year history. Screening is no longer discontinued even when a person has not smoked for 15 years. Differential diagnoses for pulmonary nodule: 1. malignant tumor 2. benign tumor 3. inflammatory processes 4. infectious process (viral, atypical bacterial, fungal, atypical mycobacterial) The Fleischner Society pulmonary nodule recommendations below pertain to the follow-up and management of indeterminate pulmonary nodules detected incidentally on CT and are published by the Fleischner Society. The guideline does not apply to lung cancer screening, patients younger than 35 years, or patients with a history of primary cancer or immunosuppression. These recommendations reflect the 2017 revision 4, which supersedes prior versions published in 2005 and 2013. Single solid nodule <6 mm (<100 mm3) *low-risk patients: no routine follow-up required *high-risk patients: optional CT at 12 months (particularly with suspicious nodule morphology and/or upper lobe location) Single solid nodule 6-8 mm (100-250 mm3) *low-risk patients: CT at 6-12 months, then consider CT at 18-24 months *high-risk patients: CT at 6-12 months, then CT at 18-24 months Single solid nodule >8 mm (>250 mm3) *low-risk and high-risk patients: consider CT at 3 months, PET/CT, or tissue sampling Chest CT one week before return. General information on COPD was covered. Educational video was shown. The video explained what COPD is and how it affects breathing. Self-care skills such as not smoking, using medications as prescribed, oxygen therapy, and knowing when to contact the healthcare provider are covered. Diaphragmatic breathing and pursed lip breathing are explained and demonstrated. Positive lifestyle changes are introduced. Following these self-care skills will help in the management of COPD so the patient can stay out of the hospital. Continue Albuterol HFA as needed. Continue Breztri aerosphere 160/9/4.8 mcg 2 puffs BID. Gargle after use. The patient does not know how to accurately administer the inhalers. Today, the patient was shown how to take these medications. The proper technique for delivering these medications was instructed. The patient expressed a clear understanding and demonstrated back how to use these medications. Without the proper technique, the patient will not reap the benefits of these medications as the contents will not reach the lower airways as intended to be. Adherence to therapy is advocated. Nonadherence may lead to treatment failure, further progression of the condition, and other complications. Hospitals admissions are often the result of individuals not taking prescription medications accurately. Alternatively, greater adherence to medication regimens have shown to lower rates of hospitalization and decrease total medical costs in patients with chronic medical conditions. Advocated influenza vaccination annually and pneumonia vaccination KOMAL. Advocated weight loss through diet and exercise. Patient's ideal body weight according to height and gender is up to 115 lbs. Encouraged patient to adjust caloric intake to maintain/achieve ideal body weight, emphasizing on fruits, vegetables, whole grains, and fat-free or low-fat products. These include lean meats, poultry, fish, beans, eggs, and nuts and foods that are low in saturated fats, trans-fats, cholesterol, salt (sodium), and glycemic index. Stressed the importance of regular exercise up to the patient's capacity limits. In this case, we recommend 20 min daily walking, 2 days a week of resistance training. Patient to monitor BP daily and bring records to PCP for further management. Follow-up: 1 year, August 2025 Not available 09/02/2024 17:35:51 Plan of Treatment Reminders Order Date Submit Date Provider Last Modified By Organization Details Last Modified Time Details Appointments Any 15 2024 02:30P Braeden Smith MD Not available Not available Not available Lab alpha-1-a ntitrypsi n (aat) phenotype , serum 2023 024 [facility] (Lab), [address] [place], [address], 06/06/2024 18:18:34 BNP (B-type natriuret ic peptide), serum or plasma 2023 024 [facility] (Lab), [address] [place], [address], 05/29/2024 12:30:57 ige, total, serum 2023 024 [email or web address] 2 [facility] (Lab), [address] [place], [address], 09/10/2024 14:39:58 tb (M tuberculo sis), ifn-gamma nichelle, blood 2023 024 [email or web address] 2 [facility] (Lab), [address] [place], [address], 09/10/2024 14:39:58 eosinophi l count, manual, blood (OBS) 2023 024 [place] [address] 2 [facility] (Lab), [address] [place], [address], 09/10/2024 14:39:[address] 1+2+3+4, serum [address] (Lab), [address] [place], [address], 09/10/2024 14:39:59 respirato ry allergen panel, [facility] A, serum [address] (Lab), [address] [place], [address], 09/10/2024 14:39:59 respirato ry allergen panel - [facility] b [address] (Lab), [address] [place], [address], 09/10/2024 14:39:59 Referral None recorded. Procedures None recorded. Surgeries None recorded. Imaging LDCT, chest, for lung cancer screening - Please call patient to schedule. [address] [facility], [address], [address], 09/02/2024 17:30:42 LDCT, chest, for lung cancer screening - Please call patient to schedule. 2023 [email or web address] [facility] ([facility] Sched[facility]), [address] [place], [address], 07/01/2024 09:07:14 Medication Orders albuterol sulfate HFA 90 mcg/actua tion aerosol inhaler 2023 [place] [place] [id number], [address], [place], [id number], 09/02/2024 17:30:48 Breztri Aerospher e 160 mcg-9mcg- 4.8mcg/ac tuation HFA aerosol inhaler 2023 [place] [place] [id number], [address], [place], [id number], 09/02/2024 17:30:48 Patient TargetsNo targets recorded. Patient Instructions Encounter Date Encounter Id Patient Instructions Last Modified By Organization Details Last Modified Time 05/29/2024 [id number] complete PFT w/ post bronchodilator spirometry* - Please call patient to schedule. RASHMI Not available 09/02/2024 11:38:43 Reason for Referral None Reported. Results Created Date Observation Date Name Description Value Unit Range Abnormal Flag Note LastModifiedBy Organization Detail LastModifiedTime 09/02/2006/30/2024 LDCT, chest , for lung cance r scree chiquita No observ ation record ed. [facility] ([facility] Call Scheduling) [address] [place], [address], 09/02/2024 11:38:42 09/02/2008/25/2024 compl ete PFT w/ post [facility] hodil ator melissa metry * No observ ation record ed. [facility] [address], [place], [address], 09/02/2024 11:38:43 Result Notes None recorded. Problems Name Problem SNOMED Code Status Onset Date Resolution Date Notes Provider Name and Address Organization Details Recorded Time Smoker 07330836 Active 2023 Nathaniel Smith MD [address], [address], [employer] 4 09:41:45 Moderate chronic obstructive pulmonary disease 078020188 Active 2023 Nathaniel Smith MD [address], [address], [employer] 4 17:28:10 Notes:Medical History: Nicot ine use Rhinitis Eosinophils 450/uL IgE 60 IU/mL AAT PiMM 193 mg% Mod COPD Bronchiectasis Right thyroid cyst Hypertension Mixed hyperlipidemia T2DM CAD s/p NE AFSHAN Left adrenal adenoma Left renal cyst Bilateral hand OA Procedure History: Coronary angioplasty with LMA stent 2003 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 Procedures Surgical History None recorded. Imaging Results Imaging Date Name Status LastModified by Organization Details LastModified Time 06/30/2024 LDCT, chest, for lung cancer screening completed [facility] ([facility] Scheduling) [address] [place], [address], 09/02/2024 11:38:42 08/25/2024 complete PFT w/ post bronchodilator spirometry* completed [facility] [address] [facility] [address], [address], 09/02/2024 11:38:43 Procedure Notes None recorded. Medical Equipment None Reported. Allergies Allergen ID Allergen Name Allergen Category Reaction Reaction Severity Criticality Documentation Date Start Date Code Code System Note Provider Name and Address Organization Details Recorded Time 42025 codeine medicatio n vomiting Not available Not available 08/23/2024 2670 RxNorm Nathaniel Smith MD [address] [facility], [place] [address], [place], [address], [employer] [facility] [employer] 00:49:00 96026 Substance with sulfonami de structure and antibacte rial mechanism of action (substanc e) medicatio n Not available Not available Not available 08/23/2024 37075 8003 SNOMED Nathaniel Smith MD [address] [facility], [address], [place], [address] [place] [address] [facility] 4 00:49:28 Medications Name Sig Start Date Stop Date Status Note LastModified by Organization Details LastModified Time doxycycline hyclate 100 mg capsule TAKE 1 CAPSULE BY MOUTH TWICE DAILY FOR 7 DAYS 09/01 completed Not Available Not Available Not Available azithromycin 250 mg tablet TAKE 1 TABLET BY MOUTH ONCE DAILY 09/01 completed Not Available Not Available Not Available pravastatin 40 mg tablet active Not Available Not Available Not Available hydrocodone 5 mg-acetamino phen 325 mg tablet TAKE 1 TABLET BY MOUTH EVERY 6 HOURS NEEDED FOR PAIN active Not Available Not Available No t Available Accu-Chek Softclix Lancets 09/01 completed Not Available Not Available Not Available diltiazem CD 360 mg capsule,exte nded release 24 hr TAKE 1 CAPSULE BY MOUTH DAILY active Not Available Not Available No t Available warfarin 3 mg tablet active Not Available Not Available No t Available famotidine 20 mg tablet active Not Available Not Available Not Available [facility] Ultra Test strips USE TO TEST ONCE DAILY 09/01 completed Not Available Not Available Not Available amlodipine 10 mg tablet active Not Available Not Available Not Available cephalexin 500 mg capsule TAKE 1 CAPSULE BY MOUTH FOUR TIMES DAILY FOR 7 DAYS 09/01 completed Not Available Not Available Not Available metformin 1,000 mg tablet active Not Available Not Available Not Available valsartan 320 mg tablet active Not Available Not Available Not Available hydrochlorot hiazide 25 mg tablet active Not Available Not Available No t Available furosemide 20 mg tablet TAKE 1 TABLET BY MOUTH DAILY active Not Available Not Available No t Available albuterol sulfate HFA 90 mcg/actuatio n aerosol inhaler INHALE 1 PUFF BY MOUTH EVERY 4 HOURS NEEDED active Not Available Not Available No t Available cefdinir 300 mg capsule TAKE 1 CAPSULE BY MOUTH TWICE DAILY 09/01 completed Not Available Not Available Not Available fluticasone propionate 50 mcg/actuatio n nasal spray,suspen susan SPRAY 1 SPRAY IN EACH NOSTRIL DAILY active Not Available Not Available No t Available fenofibrate 160 mg tablet Take 1 tablet every day by oral route. active Not Available Not Available No t Available Adult Low Dose Aspirin 09/01 completed Not Available Not Available Not Available potassium chloride ER 20 mEq tablet,exten ded release active Not Available Not Available Not Available Breztri Aerosphere 160 mcg-9mcg-4.8 mcg/actuatio n HFA aerosol inhaler INHALE 2 PUFFS BY MOUTH TWICE DAILY active Not Available Not Available No t Available Vitals Date Recorded Body weight Body mass index (BMI) Body height Oxygen saturation Oxygen saturation in Arterial blood by Pulse oximetry Heart rate Body temperature Systolic blood pressure Diastolic blood pressure Provider Name and Address Organization Details Last Updated DateTime 4 20555.2 3 g 24 kg/m2 154.94 cm 98 % 98 % 92 /min 97.7 [degF] 122 mm[Hg] 64 mm[Hg] Petrona Rothman CMA [employer] 09:14:43 Date Recorded Heart rate Respiratory rate Provider N susie and Address Organization Details Last Updated DateTime 05/29/2024 92 /min 15 /min Nathaniel Smith MD [email or web address], [place], [address] [employer] 05/29/2024 09:44:51 Date Recorded Body height Body mass index (BMI) Body weight Body temperature Heart rate Oxygen saturation Oxygen saturation in Arterial blood by Pulse oximetry Systolic blood pressure Diastolic blood pressure Provider Name and Address Organization Details Last Updated DateTime 4 154.94 cm 25.1 kg/m2 25677.7 9 g 98.4 [degF] 90 /min 98 % 98 % 132 mm[Hg] 80 mm[Hg] Kate Rollins MA [employer] 17:11:33 Date Recorded Heart rate Respiratory rate Provider N susie and Address Organization Details Last Updated DateTime 09/02/2024 90 /min 14 /min Nathaniel Smith MD [address] [employer] [address], [place], [address] [employer] 09/02/2024 17:32:43 Social History Question Answer Notes LastModified by Organizat ion Details LastModified Time Tobacco Smoking Status Current Every Day Smoker Petrona Rothman CMA [facility] [employer] [facility] [employer] 05/29/2024 09:23:07 What Is Your Level Of Alcohol Consumption? None [email or web address] Information not available 05/29/2024 What Is Your Level Of Caffeine Consumption? Occasional Coffee [email or web address] Information not available 05/29/2024 In The 14 Days Before Symptom Onset, Have You Had Close Contact With A Laboratory-confi rmed COVID-19 While That Case Was Ill? No Information not available 09/02/2024 In The 14 Days Before Symptom Onset, Have You Had Close Contact With A Person Who Is Under Investigation For COVID-19 While That Person Was Ill? No Information not available 09/02/2024 Are You Currently Employed? Yes [email or web address] Information not available 05/29/2024 What Type Of Diet Are You Following? REGULAR [email or web address] Information not available 05/29/2024 Do You Have An Electrostatic Air Filter? No Information not available 09/02/2024 What Is Your Occupation? Retired [email or web address] Information not available 05/29/2024 Do You Have A Humidifier? No Information not available 09/02/2024 Where Do You Live? SingleLevelHouse [email or web address] Information not available 05/29/2024 Do You Have Moisture Problems In Your Home? No Information not available 09/02/2024 What Was The Date Of Your Most Recent Tobacco Screening? 09/02/2024 Information not available 09/02/2024 How Many Children Do You Have? 2 Information not available 05/29/2024 Do You Have Any Pets? No [email or web address] Information not available 05/29/2024 What Is Your Relationship Status? [email or web address] Information not available 05/29/2024 Do You Use Your Seat Belt Or Car Seat Routinely? Yes [email or web address] Information not available 05/29/2024 Do You Have Smoke And Carbon Monoxide Detectors In Your Home? Yes [email or web address] Information not available 05/29/2024 Are You Passively Exposed To Smoke? Yes Information not available 09/02/2024 Do You Feel Stressed (tense, Restless, Nervous, Or Anxious, Or Unable To Sleep At Night)? [id number] [email or web address] Information not available 05/29/2024 Do You Use Any Illicit Or Recreational Drugs? No [email or web address] Information not available 05/29/2024 How Many Years Have You Smoked Tobacco? 40 Information not available 05/29/2024 Have You Recently Traveled Abroad? No Information not available 09/02/2024 Sex: Unknown Functional Status Question Answer Note LastModified by Organization D etails LastModified Time Are you able to walk? YESWOREST [email or web address] Information not available 05/29/2024 What is your exercise level? None [email or web address] Information not available 05/29/2024 Mental Status None recorded. Family History Nothing Reported. Medical History No medical history recorded. Gynecological HistoryNo gynecological history recorded. Obstetrics History GPAL:G 0 P 0 0 0 0 Past Encounters Encounter ID Performer Location Encounter Start Date Encounter Closed Date Diagnosis/Indication Diagnosis SNOMED-CT Code Diagnosis ICD10 Code Diagnosis Note [id number] Nathaniel Smith MD [place] [address] 05/29/2024 08:56:57 05/29/2024 11:58:22 Dyspnea on exertion 71069291 R06.09 R05.9 T78.40XA D89.9 Smoker 60594279 F17.218 F17.219 Z87.941 [id number] MD MARYBEL [place] [address] 09/02/2024 16:55:27 09/29/2024 12:50:45 Smoker 55802242 F17.218 F17.219 Z87.891 Moderate c hronic obstructive pulmonary disease 085266823 J44.9 Health Concerns Section Related Observation LastModified by Organization Detai ls LastModified Time None Recorded Concern Status LastModified by Organization Details LastModified Time None Recorded Advance Directives Directive None Recorded Payers Encounter Date Sequence Insurance Name Policy Number Policy Sheikh Covered Member ID Sheikh Member ID Guarantor Name 05/29/[address] [facility] (MEDICARE REPLACEMENT/A DVANTAGE - PPO) [id number] Karuna Light [id number] Karuna Light 09/02/[address] [facility] (MEDICARE REPLACEMENT/A DVANTAGE - PPO) [id number] Karuna Light [id number] Karuna Light Notes Date Note Type Note Provider Name and Address Organization Details Recorded Time 05/29/2024 text/html Primary care/Referring provider: Payton Rae MD; Allison Castro RN, [facility] Patient is here to go over shortness of breath evaluation/management . Initial development of shortness of breath: uration of shortness of breath: 3 yearsCondition of shortness of breath: syableTiming of shortness of breath: noneFrequency: up to 2 times a dayLimits activities: yesAggravating factors: walking, mopping, vacuuming, mold, cottonwood, summer heatAlleviating factors: rest Modified [employer] [place] ([facility]) Dyspnea Scale - Grade 2Grade 0 I only get breathless with strenuous exercise .Grade 1 I get short of breath when hurrying on the level or walking up a slight hill .Grade 2 I walk slower than people of the same age on the level because of breathlessness or have to stop for breath when walking at my own pace on the level .Grade 3 I stop for breath after walking about 100 yards or after a few minutes on the level .Grade 4 I am too breathless to leave the house or I am breathless when dressing . Treatment history: Albuterol HFA as needed since 2021 [facility] 160/9/4.8 mcg 2 puffs BID since 2021 Other symptoms:Drooling: noDysarthria: noNeck pain: noOdynophagia: noDysphagia: noWeak mastication: noFacial weakness: noNasal speech: noProtruding tongue: noProductive cough: clearWheezing: noChest tightness: yesOrthopnea: noFrequent throat clearing or swallowing: noPalpitations: noHeartburn: noEdema: no Environmental exposures:Nicotine smoke: 1 ppd 1978-present = 45 pack yearsPaint: noDye: noDust mites: yesMold: noDamp basement: noWood burning stove: noAnimal dander: noCockroaches: noPollen: yesArsenic: noAsbestos: noBeryllium: noCadmium: noChromium: noCoal smoke: noDiesel fumes: noNickel: noSilica: noSoot: no EPWORTH SLEEPINESS SCALE (ESS) CHANCE OF DOZING SCORE0 = would never doze1 = slight chance of dozing2 = moderate chance of dozing3 = high chance of dozing SITUATION AND CHANCE OF DOZINGSitting and reading - 0Watching television - 3Sitting inactive in a public place (e.g. a theater or meeting) - 0As a passenger in a car for an hour without a break - 0Lying down to rest in the afternoon when circumstances permit - 0Sitting and talking to someone - 0Sitting quietly after lunch without alcohol - 0In a car, while stopped for a few minutes in the traffic - 0TOTAL SCORE 3Subjectively, patient has a slight chance of dozing. Nathaniel Smith MD [address] [facility], [facility] [address], [place], [address], [place] - [facility] [employer] 05/29/2024 10:53:57 09/02/2024 text/html Primary care/Referring provider: Payton Rae MD; Allison Castro RN, [facility] Patient is here to go over shortness of breath evaluation/management . Initial development of shortness of breath: uration of shortness of breath: 3 yearsCondition of shortness of breath: stableTiming of shortness of breath: noneFrequency: up to 2 times a dayLimits activities: yesAggravating factors: walking, mopping, vacuuming, mold, cottonwood, summer heatAlleviating factors: rest Modified [employer] [place] [employer] [place] (mMRC) Dyspnea Scale - Grade 2Grade 0 I only get breathless with strenuous exercise .Grade 1 I get short of breath when hurrying on the level or walking up a slight hill .Grade 2 I walk slower than people of the same age on the level because of breathlessness or have to stop for breath when walking at my own pace on the level .Grade 3 I stop for breath after walking about 100 yards or after a few minutes on the level .Grade 4 I am too breathless to leave the house or I am breathless when dressing . Treatment history: Albuterol HFA as needed since 2021 [facility] 160/9/4.8 mcg 2 puffs BID since 2021 Other symptoms:Drooling: noDysarthria: noNeck pain: noOdynophagia: noDysphagia: noWeak mastication: noFacial weakness: noNasal speech: noProtruding tongue: noProductive cough: clearWheezing: noChest tightness: yesOrthopnea: noFrequent throat clearing or swallowing: noPalpitations: noHeartburn: noEdema: no Environmental exposures:Nicotine smoke: 1 ppd 1978-present = 45 pack yearsPaint: noDye: noDust mites: yesMold: noDamp basement: noWood burning stove: noAnimal dander: noCockroaches: noPollen: yesArsenic: noAsbestos: noBeryllium: noCadmium: noChromium: noCoal smoke: noDiesel fumes: noNickel: noSilica: noSoot: no EPWORTH SLEEPINESS SCALE (ESS) CHANCE OF DOZING SCORE0 = would never doze1 = slight chance of dozing2 = moderate chance of dozing3 = high chance of dozing SITUATION AND CHANCE OF DOZINGSitting and reading - 0Watching television - 2Sitting inactive in a public place (e.g. a theater or meeting) - 0As a passenger in a car for an hour without a break - 0Lying down to rest in the afternoon when circumstances permit - 2Sitting and talking to someone - 0Sitting quietly after lunch without alcohol - 0In a car, while stopped for a few minutes in the traffic - 0TOTAL SCORE 4Subjectively, patient has a slight chance of dozing. Nathaniel Smith MD [address] [place] [address], [place], [address], [place] - [facility] 09/02/2024 17:43:26 OBGyn Episode No OBEpisode recorded.
== END 2025-01-15 15:53 | disposition home or self-care (01) ==
PROVIDERS: PCP Internal Medicine Infectious Disease; Visit Provider Internal Medicine Infectious Disease
DX: R22.41 Localized swelling, mass and lump, right lower limb (principal)
CPT/HCPCS: 93970